=== PATIENT | female | born 1955 | race African-American/Black ===

== ENCOUNTER 2019-12-27 15:59 | Emergency (ER) | payer MEDICARE, MEDICAID, SELFPAY ==
[2019-12-27 16:08] VITALS: BP 135/74; PULSE 64; RESP 18; TEMP 36.4; O2SAT 96
[2019-12-27] MEDS: KETOROLAC (*BKC) 60 MG/2 ML VIAL IM (16:45)
--- NOTE | 2019-12-27 16:45 | ED.UPPEXIN ---
HPI - Extremity Injury (Upper) General Chief Complaint: Extremity Injury, Upper Stated Complaint: L SHOULDER PAIN Time Seen by Provider: 12/27/19 16:18 Source: patient Mode of arrival: ambulatory Limitations: no limitations History of Present Illness HPI narrative: This is a 64-year-old female that presents the emergency department for left shoulder pain x2 weeks. Reports no known injury or trauma. Reports she was seen here for this a couple of days ago and lab work and imaging was done. Reports she was sent home with a muscle relaxer and anti-inflammatory. Reports little relief with this. Denies fever, chest pain, shortness of breath. Related Data Home Medications Medication Instructions Recorded Confirmed alendronate 70 mg PO WEEKLY 12/23/19 glipizide 2.5 mg PO DAILY 12/23/19 hydrochlorothiazide 25 mg PO DAILY 12/23/19 losartan 25 mg PO DAILY 12/23/19 metformin 850 mg PO BID 12/23/19 omeprazole 20 mg PO DAILY 12/23/19 oxybutynin chloride 5 mg PO DAILY 12/23/19 simvastatin 40 mg PO DAILY 12/23/19 Allergies Allergy/AdvReac Type Severity Reaction Status Date / Time cholecalciferol (vitamin D3) AdvReac Mild RASH Verified 12/23/19 18:53 ergocalciferol (vitamin D2) AdvReac Mild RASH Verified 12/23/19 18:53 Review of Systems Review of Systems: Narrative: CONSTITUTIONAL: Denies fever CARDIOVASCULAR: Denies chest pain RESPIRATORY: Denies dyspnea. MUSCULOSKELETAL: Reports back pain, joint pain, and myalgia. NEUROLOGIC: Denies numbness, or weakness. All systems reviewed & are unremarkable except as noted in HPI and below PMFSH Past Medical History Medical History (Updated 12/27/19 @ 16:46 by Nallely Gonzales PA-C) Anxiety Arthritis Asthma Bipolar disorder Bronchitis Colon polyps COPD (chronic obstructive pulmonary disease) Cyst of left breast DDD (degenerative disc disease) Depression Diabetes type 2, controlled Ear infection Endometriosis GERD (gastroesophageal reflux disease) HLD (hyperlipidemia) HTN (hypertension) L5 vertebral fracture Left rotator cuff tear Osteoporosis Sleep apnea Surgical History Surgical History (Updated 12/23/19 @ 18:51 by Ken Abbott) History of breast biopsy Hx of cardiac catheterization Hx of colonoscopy with polypectomy Hx of hysterectomy Hx of repair of rotator cuff lt shoulder Family History Family History (Updated 12/15/17 @ 08:44 by DOCTOR UNKNOWN) Sibling Family history of suicide Family history of emphysema Diabetes mellitus Family history of chronic obstructive pulmonary disease Family history of sleep apnea Father Family history of chronic obstructive pulmonary disease, Onset Age: 74 Family history of emphysema, Onset Age: 74 Mother Family history of chronic obstructive pulmonary disease, Onset Age: 64 Family history of emphysema, Onset Age: 64 Social History Social History Smoking status: Light tobacco smoker Second hand tobacco smoke exposure: No Smoking end date: 11/28/10 Alcohol intake: current Exam Narrative: Exam Narrative: GENERAL: Well-appearing, obese, and in no acute distress. HEAD: Normocephalic, atraumatic. EYES: EOMI. ENT: Nares clear, no rhinorrhea or epistaxis. Mucous membranes moist. Oropharynx without tonsillar hypertrophy exudate or other lesions. Bilateral TMs pearly andres non-bulging NECK: Supple. No adenopathy or masses. Tender palpation of left trapezius musculature CHEST: Clear to auscultation. No respiratory distress. No wheezes rales or rhonchi. Tender palpation of left anterior upper chest wall HEART: Regular rate and rhythm. No murmur heard. Normal peripheral pulses. EXTREMITIES: Normal range of motion. No edema. SKIN: Warm, dry, no rash. NEURO: No focal deficits. Alert and oriented x3. PSYCH: Normal mood and affect Course Vital Signs Vital signs: Vital Signs Temperature 97.6 F 12/27/19 16:08 Pulse Rate 6
[2019-12-27 16:58] VITALS: BP 129/71; PULSE 71; RESP 18; O2SAT 97
== END 2019-12-27 17:00 | disposition home or self-care (01) ==
PROVIDERS: Emergency Provider Emergency Medicine; PCP Emergency Medicine
DX: M25.512 Pain in left shoulder (principal); M19.90 Unspecified osteoarthritis, unspecified site; J44.9 Chronic obstructive pulmonary disease, unspecified; E11.9 Type 2 diabetes mellitus without complications; N80.9 Endometriosis, unspecified; K21.9 Gastro-esophageal reflux disease without esophagitis; E78.5 Hyperlipidemia, unspecified; I10 Essential (primary) hypertension; M81.0 Age-related osteoporosis without current pathological fracture; G47.30 Sleep apnea, unspecified; F17.200 Nicotine dependence, unspecified, uncomplicated; Z79.4 Long term (current) use of insulin
CPT/HCPCS: 96372; 99284; J1885; J3360

== ENCOUNTER 2020-01-14 08:24 | Outpatient (CLI) | payer MEDICARE, MEDICAID, SELFPAY ==
--- NOTE | ~2020-01-14 | CT_ITS ---
EXAMINATION: CT soft tissue neck chest w DATE: 01/14/2020 09:56 INDICATION: Shortness of breath. Left supraclavicular mass. TECHNIQUE: Computed tomography (CT) of the neck and chest was performed with 75 mL Omnipaque-350 intr avenous contrast. Automated exposure control and iterative reconstruction technique were employed. Th e dose-length product was 1083.16 mGy-cm. COMPARISON: Chest CT dated 12/22/2018 and 02/04/2012 FINDINGS: Neck: Thyroid gland is unremarkable. Submandibular and parotid glands are symmetric. There are scattered normal-sized lymph nodes in the neck, no lymphadenopathy. No masses identified. The vasculature is patent and normal in caliber. Airway is unremarkable. Orbits are unremarkable. Paranasal sinuses, mas toid air cells and middle ear cavities are clear. Mild to moderate cervical spondylosis with straight ening of the normal cervical lordosis. Chest: Again seen is peripheral and lower lung predominant irregular septal line thickening with mild ground glass opacity. No honeycombing. No pleural effusion or pneumothorax. Heart size is normal. Atheroscle rotic coronary artery calcification. Thoracic aorta is normal in caliber with no dissection. No patho logically enlarged thoracic lymphadenopathy. Diffuse hepatic steatosis. No significant change since C T abdomen dated 05/24/2007 in 3 left adrenal masses the largest measuring 2.2 consistent with adrenal adenomas. Severe lower thoracic spondylosis. IMPRESSION: 1. Mild chronic peripheral and lower lung predominant interstitial lung disease a pattern of nonspeci fic interstitial pneumonia (NSIP). 2. No left supraclavicular mass, abnormal fluid collections or pathologically enlarged lymphadenopath y. 3. Diffuse hepatic steatosis. Reviewed, dictated and finalized at location A. TICS PLATER IMPRESSION: 1. Mild chronic peripheral and lower lung predominant interstitial lung disease a pattern of nonspecific interstitial pneumonia (NSIP). 2. No left supraclavicular mass, abnormal fluid collections or pathologically e nlarged lymphadenopathy. 3. Diffuse hepatic steatosis.
[2020-01-14 09:33] LABS: Blood Urea Nitrogen 16 mg/dL (8-26); Estimated Glomerular Filt Rate > 60
== END 2020-01-14 08:25 | disposition home or self-care (01) ==
LOC: ANHIMG 08:28
PROVIDERS: PCP Emergency Medicine; Visit Provider Emergency Medicine
DX: R06.02 Shortness of breath (principal); J84.9 Interstitial pulmonary disease, unspecified; K76.0 Fatty (change of) liver, not elsewhere classified
CPT/HCPCS: 70491; 71260; Q9967

== ENCOUNTER 2020-01-24 14:35 | Outpatient (CLI) | payer MEDICARE, MEDICAID, SELFPAY ==
--- NOTE | ~2020-01-24 | DEXA_ITS ---
Bone Density Report Name: Imelda Velazquez Age: 64 Sex: Female Ethnicity: Black Date of : 1955 Indication: postmenopausal; height loss; prior fracture; asthma or emphysema; hysterectomy; Referring Provider: BOBBY HILL Study: Bone densitometry was performed. Exam Date: January 24, 2020 Accession number: [id number] Bone Density: Region BMD T-score Z-score Classification AP Spine (L1-L4) 0.916 -1.2 -0.2 Osteopenia Femoral Neck (Left) 0.663 -1.7 -0.7 Osteopenia Total Hip (Left) 0.969 0.2 0.6 Normal Total Hip Bilateral Avg 0.965 0.2 0.6 Normal Femoral Neck (Right) 0.700 -1.3 -0.5 Osteopenia Total Hip (Right) 0.960 0.1 0.5 Normal World Health Organization criteria for BMD impression classify patients as: Normal (T-score at or above -1.0), Osteopenia (T-score between -1.0 and -2.5), or Osteoporosis (T-score at or below -2.5). 10-year Fracture Risk: FRAX not reported because: Prior hip or vertebral fracture Previous Exams: Region Exam Age BMD T-score BMD Change BMD Change Date g/cm2 vs Baseline vs Previous AP Spine(L1-L4) 01/24/2020 64 0.916 -1.2 0.156(20.5%)# -0.026(-2.8%)# 04/18/2015 59 0.942 -1.0 0.182(23.9%)# 0.182(23.9%)# 04/14/2006 50 0.760 -2.6 Total Hip(Left) 01/24/2020 64 0.969 0.2 0.134(16.1%)# -0.003(-0.3%) 04/18/2015 59 0.972 0.2 0.137(16.4%)# 0.137(16.4%)# 04/14/2006 50 0.835 -0.9 Total Hip(Right) 01/24/2020 64 0.960 0.1 0.172(21.8%)# -0.013(-1.3%) 04/18/2015 59 0.973 0.3 0.185(23.5%)# 0.185(23.5%)# 04/14/2006 50 0.788 -1.3 *Denotes significance at 95% confidence level, LSC for AP Spine = 0.022 g/cm2, LSC for Total Hip = 0.027 g/cm2 Clinical Information Provided by Patient: Have had a previous hip or vertebral fracture Has had a low trauma fracture Smokes Has the following medical conditions: Asthma or Emphysema, Hysterectomy Patient maximum height was 61 Menopause Age: 44 Does not regularly consume dairy products Drinks caffeinated beverages Onset of menses at age 14 Number of children 0 Impression: The patient has low bone mass, based on the Left Femoral Neck T-score. The patient has risk factors, including: smoking, previous fracture. No significant bone loss was observed. Discussion: INCREASED RISK OF FRACTURE DUE TO HISTORY OF FRACTURE. The patient's previous fracture puts the patient at high risk of a future fracture. In untreated patients, the risk of osteop
== END 2020-01-24 14:36 | disposition home or self-care (01) ==
PROVIDERS: PCP Emergency Medicine; Visit Provider Emergency Medicine
DX: M81.0 Age-related osteoporosis without current pathological fracture (principal); M85.89 Other specified disorders of bone density and structure, multiple sites
CPT/HCPCS: 77080

== ENCOUNTER 2020-06-14 00:37 | Outpatient (CLI) | payer MEDICARE, MEDICAID, SELFPAY ==
[2020-06-14 18:31] LABS: SARS-CoV-2 RNA PCR Negative
== END 2020-06-14 00:38 | disposition home or self-care (01) ==
LOC: ANHCOVIDDT 00:48
PROVIDERS: PCP Emergency Medicine; Visit Provider Internal Medicine Gastroenterology
DX: Z01.812 Encounter for preprocedural laboratory examination (principal); Z11.59 Encounter for screening for other viral diseases
CPT/HCPCS: 87635; C9803; U0003

== ENCOUNTER 2020-06-17 02:18 | Day surgery (SDC) | payer MEDICARE, MEDICAID, SELFPAY ==
[2020-06-06 11:15] VITALS: BMI 37.8
[2020-06-17 09:29] VITALS: BP 99/58; PULSE 65; RESP 20; TEMP 36.4; O2SAT 95
[2020-06-17] MEDS: LACTATED RINGERS 1,000 ML 150 ML IV CONT (09:47)
[2020-06-17 09:51] LABS: Glucose Point of Care 111 (65-105)
--- NOTE | 2020-06-17 10:23 | P.PNAN_ITS ---
Anes - Initial Pre Proc Eval Procedure: Operation Date: 06/17/20 11:00 Proposed Procedures p Esophagogastroduodenoscopy - Guicho Nixon MD Date/Time: 06/17/20 10:23 Surgeon: Guicho Nixon MD Pre Op Diagnosis: GERD Patient Data Age: 64 Gender: F Height: 4 ft 11 in Weight: 93.5 kg Last Vital Signs Temp 97.5 F L 06/17/20 09:29 Pulse 65 06/17/20 09:29 Resp 20 06/17/20 09:29 BP 99/58 L 06/17/20 09:29 Pulse Ox 95 06/17/20 09:29 Allergies Allergy/AdvReac Type Severity Reaction Status Date / Time No Known Allergies Allergy Verified 06/17/20 09:28 Home Medications Medication Instructions Recorded Confirmed Type glipizide 2.5 mg PO DAILY 12/23/19 06/17/20 History hydrochlorothiazide 25 mg PO DAILY 12/23/19 06/17/20 History metformin 850 mg PO BID 12/23/19 06/17/20 History omeprazole 20 mg PO DAILY 12/23/19 06/17/20 History oxybutynin chloride 5 mg PO DAILY 12/23/19 06/17/20 History simvastatin 40 mg PO DAILY 12/23/19 06/17/20 History cyclobenzaprine 10 mg PO TID PRN #20 tablet 12/27/19 06/17/20 Rx albuterol sulfate 90 mcg/actuation 2 inhalation INHALATION Q4-6H PRN 02/01/20 06/17/20 Rx aerosol inhaler #8.5 gm fluticasone 250 mcg-salmeterol 50 1 inhalation INHALATION BID 02/01/20 06/17/20 History mcg/dose blistr powdr for inhalation irbesartan 150 mg tablet 150 mg PO DAILY 02/01/20 06/17/20 History sodium chloride-aloe vera 1 applic TOPICAL Q1-2H PRN #14.1 gm 02/01/20 06/17/20 Rx umeclidinium 62.5 mcg/actuation 1 inhalation INHALATION DAILY 02/01/20 06/17/20 History blister powder for inhalation hydrocodone-acetaminophen 1 tablet PO PRN PRN 06/17/20 06/17/20 History Laboratory Tests 06/17/20 09:47 POC Capillary Glucose 111 mg/dl H mg/dl (65-105) Patient hx anesthesia problems: none Family hx anesthesia problems: none [facility] Social History Social History (Updated 02/01/20 @ 11:25 by Che Minor 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 TRAIN 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) Years smoked: 10 Smoking status: Light tobacco smoker Tobacco type: cigarettes Second hand tobacco smoke exposure: No Smoking end date: 11/28/10 Alcohol intake: current Anes - Eval Final PreProcedure Day of Procedure 06/17/20 10:23 Patient weight: morbidly obese Heart: regular rate and rhythm Lungs: clear to auscultation Airway: Mallampati scale class III Neurological: alert and oriented Last oral intake: >/= 8 hours ASA classification: IV Emergent: no Anesthetic plan: proceed Anesthesia type and monitoring: general GIVS and standard monitoring Informed Consent: The patient's anesthetic plan and its attendant risks and benefits were discussed with the patient/family/POA. Questions were solicited and answers provided to the satisfaction of the patient/family/POA.
--- NOTE | 2020-06-17 10:41 | PM.HPGS ---
History of Present Illness History of Present Illness Consent: Risks, benefits, and alternatives have been discussed and questions answered. Patient agrees to proceed with procedure. Chief complaint: GERD Narrative: Imelda Velazquez is a 64 year old female With refractory reflux symptoms. She had been on omeprazole for several years and doing well, but because of concerns related to long-term use she it was discontinued several months ago. Since then she has suffered from discomfort in her epigastric area, a sick feeling, nausea and occasional vomiting. She has lost some weight, about 20 lb in the last half year [facility] Past Medical History Medical History Anxiety Arthritis Asthma Bipolar disorder Bronchitis Colon polyps COPD (chronic obstructive pulmonary disease) Cyst of left breast DDD (degenerative disc disease) Depression Diabetes type 2, controlled Ear infection Endometriosis GERD (gastroesophageal reflux disease) HLD (hyperlipidemia) HTN (hypertension) L5 vertebral fracture Left rotator cuff tear Osteoporosis Sleep apnea Surgical History Surgical History History of breast biopsy Hx of cardiac catheterization Hx of colonoscopy with polypectomy Hx of hysterectomy Hx of repair of rotator cuff lt shoulder Family History Family History Sibling Family history of suicide Family history of emphysema Diabetes mellitus Family history of chronic obstructive pulmonary disease Family history of sleep apnea Father Family history of chronic obstructive pulmonary disease, Onset Age: 74 Family history of emphysema, Onset Age: 74 Mother Family history of chronic obstructive pulmonary disease, Onset Age: 64 Family history of emphysema, Onset Age: 64 Social History Social History (Updated 02/01/20 @ 11:25 by Che Minor [facility]) Years smoked: 10 Smoking status: Light tobacco smoker Tobacco type: cigarettes Second hand tobacco smoke exposure: No Smoking end date: 11/28/10 Alcohol intake: current Meds Home Medications and Allergies Home Medications Medication Instructions Recorded Confirmed Type glipizide 2.5 mg PO DAILY 12/23/19 06/17/20 History hydrochlorothiazide 25 mg PO DAILY 12/23/19 06/17/20 History metformin 850 mg PO BID 12/23/19 06/17/20 History omeprazole 20 mg PO DAILY 12/23/19 06/17/20 History oxybutynin chloride 5 mg PO DAILY 12/23/19 06/17/20 History simvastatin 40 mg PO DAILY 12/23/19 06/17/20 History cyclobenzaprine 10 mg PO TID PRN #20 tablet 12/27/19 06/17/20 Rx albuterol sulfate 90 mcg/actuation 2 inhalation INHALATION Q4-6H PRN 02/01/20 06/17/20 Rx aerosol inhaler #8.5 gm fluticasone 250 mcg-salmeterol 50 1 inhalation INHALATION BID 02/01/20 06/17/20 History mcg/dose blistr powdr for inhalation irbesartan 150 mg tablet 150 mg PO DAILY 02/01/20 06/17/20 History sodium chloride-aloe vera 1 applic TOPICAL Q1-2H PRN #14.1 gm 02/01/20 06/17/20 Rx umeclidinium 62.5 mcg/actuation 1 inhalation INHALATION DAILY 02/01/20 06/17/20 History blister powder for inhalation hydrocodone-acetaminophen 1 tablet PO PRN PRN 06/17/20 06/17/20 History Allergies Allergy/AdvReac Type Severity Reaction Status Date / Time No Known Allergies Allergy Verified 06/17/20 09:28 Vital Signs Vital Signs - 24 hr 06/17/20 09:29 Temperature 36.4 C L Pulse Rate 65 Respiratory Rate 20 Blood Pressure 99/58 L Pulse Oximetry 95 Exam Const: General: alert Orientation/consciousness: patient oriented x3 Resp: Auscultation: clear to auscultation bilaterally Cardio: Rhythm: regular rhythm GI: GI Palp: Yes Soft to palpation and No Tenderness to palpation present (GI) Neuro: General: patient oriented x3 Assessment and Plan Assessment and plan (1) GERD (gastroesophageal reflux disease):
[2020-06-17 11:10] VITALS: BP 108/71; PULSE 63; RESP 28; O2SAT 96
[2020-06-17 11:20] VITALS: BP 115/75; PULSE 59; RESP 22; O2SAT 96
[2020-06-17 11:30] VITALS: BP 99/65; PULSE 57; RESP 22; O2SAT 98
== END 2020-06-17 11:44 | disposition home or self-care (01) ==
PROVIDERS: PCP Emergency Medicine; Visit Provider Internal Medicine Gastroenterology
PROC: 0DJ08ZZ Inspection of Upper Intestinal Tract, Via Natural or Artificial Opening Endoscopic (ICD-10-PCS; CPT 43235; principal; 2020-06-17 11:00)
DX: K21.9 Gastro-esophageal reflux disease without esophagitis (principal); K29.70 Gastritis, unspecified, without bleeding; I10 Essential (primary) hypertension; E78.5 Hyperlipidemia, unspecified; J44.9 Chronic obstructive pulmonary disease, unspecified; F41.8 Other specified anxiety disorders; E11.9 Type 2 diabetes mellitus without complications; F31.9 Bipolar disorder, unspecified; M81.0 Age-related osteoporosis without current pathological fracture; G47.30 Sleep apnea, unspecified; F17.210 Nicotine dependence, cigarettes, uncomplicated; Z79.84 Long term (current) use of oral hypoglycemic drugs
CPT/HCPCS: 43239; 87081; J2001; J2704; J7120

== ENCOUNTER 2020-08-20 15:26 | Outpatient (CLI) | payer MEDICARE, MEDICAID, SELFPAY ==
--- NOTE | ~2020-08-20 | CT_ITS ---
EXAMINATION: CT abdomen pelvis w con INDICATION: Abdominal pain TECHNIQUE: Computed tomographic images of the abdomen and pelvis were obtained after the administrati on of 100 cc of Omnipaque 350 intravenous contrast. The dose-length product (DLP) was 1330.52 mGy-cm. Automated exposure control and iterative reconstruction technique were employed. COMPARISON: 05/24/2007, 01/14/2020 FINDINGS: Minimal dependent atelectasis is present in the lung bases. The heart size is normal. There are also subpleural reticular and groundglass opacities of the visualized lung bases without signifi cant change, consistent with chronic interstitial lung disease in a pattern of nonspecific interstiti al pneumonia (NSIP). Calcified coronary artery atherosclerosis is noted. There is a prominent soft ti ssue density at the pylorus of the stomach. The liver is diffusely low in attenuation when compared w ith the spleen, consistent with hepatic steatosis. The liver, spleen, pancreas, gallbladder, and righ t adrenal gland are normal. There are chronic masses of the left adrenal gland, unchanged since the comparison, likely adenomas. The kidneys are unremarkable. A lymph node of the small bowel mesent rodriguez measures 11 mm in short axis diameter (image [id number]). There is no free intraperitoneal gas or eviden ce of bowel obstruction. A fat-containing umbilical hernia is noted. There is moderate lumbar spondyl osis. IMPRESSION: 1. Prominent soft tissue density at the pylorus the stomach which could reflect prominent pylorus how ever, endoscopic evaluation is recommended. 2. Mildly prominent lymph node of the small bowel mesentery of unclear significance. Reviewed, dictated and finalized at location A. IMPRESSION: 1. Prominent soft tissue density at the pylorus the stomach which could reflect prominent pylorus however, endoscopic evaluation is recommended. 2. Mildly prominent lymph node of the small bowel mesentery of unclear signific ance.
--- NOTE | ~2020-08-20 | XR_ITS ---
EXAMINATION: XR lumbar spine 2-3V DATE: 08/20/2020 15:51 INDICATION: Back pain TECHNIQUE: Anteroposterior and lateral views of the lumbar spine, and cone-down lateral view of the l umbosacral junction were obtained. COMPARISON: CT from today FINDINGS: There are 2 mm of stable anterolisthesis of L5 on S1. Vertebral body alignment is otherwise maintained. There is chronic mild loss of intervertebral disc space height at L1-2 and L5-S1. No fra cture is identified. A Schmorl's node is again noted in the superior endplate of L3. There is no frac ture. There is severe facet osteoarthritis of the lower lumbar spine. IMPRESSION: 1. Mild lumbar spondylosis without acute findings or significant interval change. Reviewed, dictated and finalized at location A. IMPRESSION: 1. Mild lumbar spondylosis without acute findings or significant interval maral sosa
[2020-08-20 16:29] LABS: Estimated Glomerular Filt Rate > 60
== END 2020-08-20 15:27 | disposition home or self-care (01) ==
PROVIDERS: PCP Emergency Medicine; Visit Provider Emergency Medicine
DX: R10.9 Unspecified abdominal pain (principal); M47.896 Other spondylosis, lumbar region
CPT/HCPCS: 72100; 74177; Q9967

== ENCOUNTER 2021-04-13 12:20 | Outpatient (CLI) | payer MEDICARE, MEDICAID, SELFPAY ==
--- NOTE | ~2021-04-13 | CT_ITS ---
EXAMINATION: CT lung screening DATE: 04/13/2021 12:53 INDICATION: Personal history of nicotine dependence, current smoker with 30 pack year history TECHNIQUE: Computed tomography (CT) of the chest was performed without intravenous contrast. The dose -length product (DLP) was 211.84 mGy-cm. 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 COMPARISON: 01/14/2020 FINDINGS: There are chronic subpleural reticular and groundglass opacities with a lower lung zone pre dominance, consistent with chronic interstitial lung disease in a pattern of nonspecific interstitial pneumonia (NSIP). There is mild worsening comparison examination. No suspicious pulmonary nodules ar e identified. There is no pleural effusion or pneumothorax. No pathologically enlarged thoracic lymph nodes are identified. The heart size is normal. Calcified coronary artery atherosclerosis is noted. There is mild thoracic spondylosis. IMPRESSION: 1. Lung-RADS category 1: Negative. Continue annual screening with noncontrast low-dose chest CT in 12 months. Reviewed, dictated and finalized at location A. IMPRESSION: 1. Lung-RADS category 1: Negative. Continue annual screening with noncontrast l ow-dose chest CT in 12 months.
== END 2021-04-13 12:21 | disposition home or self-care (01) ==
PROVIDERS: PCP Emergency Medicine; Visit Provider Nurse Practitioner Family
DX: Z12.2 Encounter for screening for malignant neoplasm of respiratory organs (principal); Z87.891 Personal history of nicotine dependence
CPT/HCPCS: 71271

== ENCOUNTER 2021-07-06 13:40 | Outpatient (CLI) | payer MEDICARE, MEDICAID, SELFPAY ==
[2021-07-09 10:32] LABS: Anti Cyclic Citrullinated Pept <16 Units (<20)
== END 2021-07-06 13:41 | disposition home or self-care (01) ==
PROVIDERS: PCP Emergency Medicine; Visit Provider Nurse Practitioner Family
DX: J84.9 Interstitial pulmonary disease, unspecified (principal)
CPT/HCPCS: 36415; 86200; 86331; 86606; 86609

== ENCOUNTER 2021-07-31 10:12 | Outpatient (CLI) | payer MEDICARE, MEDICAID, SELFPAY ==
--- NOTE | 2021-07-31 14:21 | WPDSIXMINUTE ---
Six Minute Walk Procedure Procedure Performed Pulmonary Stress Test (6 min walk) Six Minute Walk This is a 6 minute walk test. The test was performed and interpreted in accordance with the 2014 ERS/ATS task force guidelines. Findings: The patient's resting room air oxygen saturation measured by pulse oximetry was 93% and her heart rate was 62 bpm. Patient ambulated for 305 meters and oxygen saturation remained 90 to 92%. Heart rate at the end of the study was 88 bpm. The patient did not qualify for supplemental oxygen at rest or with ambulation. There are no prior studies for comparison.
--- NOTE | 2021-07-31 14:22 | WPDPFTINT ---
PFT Procedure Performed PFT Procedure Performed Spirometry with Pre/Post Bronchodilator Plethysmography (Lung Vol) Diffusing Cap (DLCO) Flow Vol Loop PFT Interpretation This is a pulmonary function test with pre and post-bronchodilator spirometry, plethysmography and diffusing capacity. The test was performed and results interpreted in accordance with the 2019 and 2005 ATS/ERS Task Force guidelines respectively using the Global Lung Function Initiative-2012 reference equations. Patient demonstrated good effort and cooperation. Reproducibility criteria were met. The quality of the pre bronchodilator spirometry maneuver was Grade A and post bronchodilator spirometry maneuver was Grade B. Findings: Spirometry: The contour the inspiratory and expiratory flow tracing are normal. The pre bronchodilator FVC is 1.95 L, 76% predicted. The pre bronchodilator FEV1 is 1.53, 76% predicted. The FEV1: FVC ratio 78%. The post bronchodilator FVC is 2.10 L, representing a 7% increase. The post bronchodilator FEV1 is 1.67 L, representing a 9% increase. Plethysmography: The total lung capacity is 3.87 L, 87% predicted. The functional residual capacity is 1.65 L, 66% predicted. The residual volume is 1.61 L, 85% predicted. Diffusing capacity: The absolute diffusion capacity is 11.6, 60% predicted. The diffusing capacity corrected for alveolar volume is 4.12, 91% predicted. Impression: The spirometry is normal without evidence of an obstructive abnormality. There is no significant improvement after inhaling a single dose of albuterol. The lung volumes are normal. The absolute diffusing capacity is moderately decreased and normalizes when corrected for alveolar volume. There are no prior studies for comparison
== END 2021-07-31 10:13 | disposition home or self-care (01) ==
PROVIDERS: PCP Emergency Medicine; Visit Provider Nurse Practitioner Family
DX: J84.9 Interstitial pulmonary disease, unspecified (principal); J44.9 Chronic obstructive pulmonary disease, unspecified; R06.00 Dyspnea, unspecified
CPT/HCPCS: 94060; 94618; 94726; 94729

== ENCOUNTER 2021-09-26 16:27 | Emergency (ER) | payer MEDICARE, MEDICAID, SELFPAY ==
[2021-09-26 16:30] VITALS: BP 150/83; PULSE 63; RESP 16; TEMP 36.1; O2SAT 97
[2021-09-26] MEDS: ACETAMINOPHEN 500 MG TABLET 1000 MG PO (17:40)
--- NOTE | 2021-09-26 18:24 | ED.BACK ---
HPI - Back Pain/Injury General Chief Complaint: Back Pain/Injury Stated Complaint: fractured vertebrae Time Seen by Provider: 09/26/21 16:40 Source: patient History of Present Illness HPI Narrative: Patient was referred from urgent care concern for spinal fracture. 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 Patient fell at back pain and went to urgent care for evaluation she denies striking her head she denies any loss of consciousness focal focal numbness or weakness. Her pain is primarily in her lower back is achy, constant, worse with moving around radiates across her entire back. She denies any bowel or bladder incontinence. She denies any nausea or vomiting. She denies headaches Related Data Home Medications Medication Instructions Recorded Confirmed hydrochlorothiazide 25 mg PO DAILY 12/23/19 07/06/21 metformin 850 mg PO BID 12/23/19 07/06/21 oxybutynin chloride 5 mg PO DAILY 12/23/19 07/06/21 simvastatin 40 mg PO DAILY 12/23/19 07/06/21 fluticasone 250 mcg-salmeterol 50 1 inhalation INHALATION BID 02/01/20 07/06/21 mcg/dose blistr powdr for inhalation irbesartan 150 mg tablet 150 mg PO DAILY 02/01/20 07/06/21 hydrocodone 7.5 mg-acetaminophen 1 tablet PO Q8H PRN 10/03/20 07/06/21 325 mg tablet omeprazole 20 mg capsule,delayed 40 mg PO DAILY cap 10/03/20 07/06/21 release Allergies Allergy/AdvReac Type Severity Reaction Status Date / Time No Known Allergies Allergy Verified 07/06/21 13:11 Review of Systems Review of Systems: CONSTITUTIONAL: Denies fever, chills, or sweats. EYES: Denies visual changes, redness, or discharge. ENT: Denies rhinorrhea, congestion, sore throat, or otalgia. CARDIOVASCULAR: Denies chest pain, palpitations, or edema. RESPIRATORY: Denies cough or dyspnea. GASTROINTESTINAL: Denies abdominal pain, nausea, vomiting, or diarrhea. GENITOURINARY: Denies dysuria or hematuria. SKIN: Denies rash or itching. MUSCULOSKELETAL: Denies joint pain, or myalgia. NEUROLOGIC: Denies headache, numbness, dizziness, or weakness. PSYCHIATRIC: Denies anxiety or depression. All systems reviewed & are unremarkable except as noted in HPI and below PMFSH Past Medical History Medical History Anxiety Arthritis Asthma Bipolar disorder Bronchitis Colon polyps COPD (chronic obstructive pulmonary disease) Cyst of left breast DDD (degenerative disc disease) Depression Diabetes type 2, controlled Ear infection Endometriosis GERD (gastroesophageal reflux disease) HLD (hyperlipidemia) HTN (hypertension) L5 vertebral fracture Left rotator cuff tear Osteoporosis Sleep apnea Tobacco abuse Surgical History Surgical History History of breast biopsy Hx of cardiac catheterization Hx of colonoscopy with polypectomy Hx of hysterectomy Hx of repair of rotator cuff lt shoulder Family History Family History Sibling Family history of suicide Family history of emphysema Diabetes mellitus Family history of chronic obstructive pulmonary disease Family history of sleep apnea Father Family history of chronic obstructive pulmonary disease, Onset Age: 74 Family history of emphysema, Onset Age: 74 Mother Family history of chronic obstructive pulmonary disease, Onset Age: 64 Family history of emphysema, Onset Age: 64 Social History Social History Smoking packs per day: 1 Smoking cigarettes per day: 20.0 Years smoked: 30 Smoking pack-years: 30.00 Smoking status: Current every day smoker Tobacco type: cigarettes Second hand tobacco smoke exposure: No Smoking end date: 11/28/18 Alcohol intake: current Exam Narrative: GENERAL: Well-appearing, well-nourished, and in no acute distress. HE
[2021-09-26] MEDS: KETOROLAC 30 MG/ML VIAL (*BKC) IM (18:52)
[2021-09-26 19:05] VITALS: BP 124/92; PULSE 55; RESP 17; O2SAT 93
== END 2021-09-26 19:10 | disposition home or self-care (01) ==
PROVIDERS: Emergency Provider Emergency Medicine; PCP Emergency Medicine
DX: S39.92XA Unspecified injury of lower back, initial encounter (principal); E11.9 Type 2 diabetes mellitus without complications; M19.90 Unspecified osteoarthritis, unspecified site; J44.9 Chronic obstructive pulmonary disease, unspecified; N80.9 Endometriosis, unspecified; E78.5 Hyperlipidemia, unspecified; I10 Essential (primary) hypertension; M81.0 Age-related osteoporosis without current pathological fracture; G47.30 Sleep apnea, unspecified; F17.210 Nicotine dependence, cigarettes, uncomplicated; Z79.84 Long term (current) use of oral hypoglycemic drugs; W18.09XA Striking against other object with subsequent fall, initial encounter
CPT/HCPCS: 96372; 99199; 99283; A9270; J1885

== ENCOUNTER → 2022-02-04 08:35 | Outpatient (CLI) | payer MEDICARE, MEDICAID, SELFPAY ==
[2022-02-04 11:04] LABS: SARS-CoV-2 RNA PCR Negative
== END ==
PROVIDERS: PCP Emergency Medicine; Visit Provider Emergency Medicine
DX: B34.9 Viral infection, unspecified (principal); Z20.822 Contact with and (suspected) exposure to COVID-19
CPT/HCPCS: C9803; U0003; U0005

== ENCOUNTER 2022-02-12 08:19 | Outpatient (CLI) | payer MEDICARE, MEDICAID, SELFPAY ==
--- NOTE | 2022-02-23 13:08 | WPDSLEEPSTUD ---
Sleep Study Date of Study: 02/12/22 Ordering Provider: Jersey Harrell APRN Interpreting Physician: Niki Mccarthy DO Sleep Study Type: BiPAP Titration Height: 1.52 m Weight: 89.358 kg Body Mass Index: 38.5 Neck Circumference (inches): 14.5 [place]: 12 Reason for Sleep Study The patient has known MARLA. She is currently on CPAP 20 cm H2O w/2L O2 bleed in . No download available for review. She states she is compliant, uses CPAP nightly. She states pressure is too high. Sleep History The patient is a 66-year-old female with COPD, hypertension, diabetes, bipolar disorder, depression, GERD, hyperlipidemia, osteoporosis, anxiety, endometriosis, tobacco abuse and known MARLA that had a Pap titration ordered by the Pulmonary office. The patient is currently on CPAP 20 cm H2O with 2 L of oxygen. The patient states that she is constantly tired and she feels like the pressure is too high. The patient occasionally awakens from sleep short of breath. She denies awakening at night with heartburn, belching or cough. She constantly snores loud enough that others complain. She constantly has trouble sleeping when she has a cold. She constantly wakes up gasping for air throughout the night. She constantly has breathing problems at night observed by herself or others. She rarely sweats excessively at night. She denies heart palpitations or irregular heartbeats during the night. She occasionally falls asleep during the day but never while driving. She denies sleep paralysis and cataplexy. She denies having trouble at school or work due to sleepiness. She occasionally has vivid dreamlike scenes upon awakening or falling asleep. She occasionally has nightmares. She occasionally remembers her dreams. She occasionally has thoughts racing through her mind. She occasionally feels sad, depressed and anxious. She denies having muscular tension. She constantly notices parts of her body jerk. She constantly kicks during the night. She constantly has crawling and aching feelings in her legs as well as leg pain during the night. She denies grinding her teeth during sleep awakening with morning jaw pain. She is occasionally bothered by pain during the day and occasionally awakened by pain during the night. She occasionally wakes up feeling stiff in the morning with sore achy muscles. She constantly wakes up with pain in the neck, spine and other joints. She does not have a set bedtime on the weekdays or weekends. She is unsure how long it takes her to fall asleep. She is unsure how many times she wakes up throughout the night but when she does wake up she will use the restroom. She is unsure when she wakes up in the morning. She will stay in bed for 1 hour after waking up in the morning. She is currently living alone. She will consume caffeinated beverages within 2 hours of bedtime. She does not engage in physical exercise before bedtime. She will read watch television before falling asleep. She will take naps in the afternoon or the evening. She currently consumes 2 caffeinated beverages per day. She currently smokes 3 cigarettes per day. She denies alcohol recreational drug use. [facility]LY [facility] Past Medical History Medical History Anxiety Arthritis Asthma Bipolar disorder Bronchitis Colon polyps COPD (chronic obstructive pulmonary disease) Cyst of left breast DDD (degenerative disc disease) Depression Diabetes type 2, controlled Ear infection Endometriosis GERD (gastroesophageal reflux disease) HLD (hyperlipidemia) HTN (hypertension) L5 vertebral fracture Left rotator cuff tear Osteoporosis Sleep apnea Tobacco abuse Surgical History Surgical History History of breast biopsy Hx of cardiac catheterization Hx of colonoscopy with polypectomy Hx of hysterectomy Hx of repair of rotator cuff lt shoulder Family History Family Hi
[2022-02-23 13:24] VITALS: BMI 38.5
== END 2022-02-13 06:39 | disposition home or self-care (01) ==
LOC: ANHCSM 08:20
PROVIDERS: PCP Emergency Medicine
DX: G47.33 Obstructive sleep apnea (adult) (pediatric) (principal)
CPT/HCPCS: 95811

== ENCOUNTER 2022-04-13 09:56 | Outpatient (CLI) | payer MEDICARE, MEDICAID, SELFPAY ==
--- NOTE | ~2022-04-13 | CT_ITS ---
EXAMINATION: CT lung screening DATE: 04/13/2022 10:12 INDICATION: Z87.891 - Personal history of nicotine dependence TECHNIQUE: Computed tomography (CT) of the chest was performed without intravenous contrast. Addition al 3D reconstructions utilizing coronal maximum intensity projection (MIP) were performed. Automated exposure control and iterative reconstruction technique were employed. The dose-length product was 17 1.95 mGy-cm. COMPARISON: None FINDINGS: No significant interval change in peripheral and lower lung predominant irregular septal line thicken ing and mild groundglass opacities in consistent with chronic interstitial lung disease. There appear s to be some honeycombing most prominent along the anterior left upper lobe. Unchanged 5 mm triangula r likely perifissural lymph node along the right minor fissure. No pneumonia, pulmonary edema or pleu ral effusion. Heart size is normal. Atherosclerotic coronary artery calcific location. Aortic valve c alcific location. No pericardial effusion. Thoracic aorta is normal in caliber. No pathologically enl arged thoracic lymphadenopathy. Moderate to severe lower thoracic predominant spondylosis. IMPRESSION: 1. Lung-RADS category 2: Benign appearance or behavior. Continue annual screening with noncontrast lo w-dose chest CT in 12 months. 2. No significant change in chronic peripheral and lower lung predominant interstitial lung disease w ith suggestion of some honeycombing which would favor usual interstitial pneumonia (UIP) over nonspec ific interstitial pneumonia (NSIP). Reviewed, dictated and finalized at location A. IMPRESSION: 1. Lung-RADS category 2: Benign appearance or behavior. Continue annual screeni ng with noncontrast low-dose chest CT in 12 months. 2. No significant change in chronic peripheral and lower lung predominant inter stitial lung disease with suggestion of some honeycombing which would favor usu al interstitial pneumonia (UIP) over nonspecific interstitial pneumonia (NSIP).
== END 2022-04-13 09:57 | disposition home or self-care (01) ==
PROVIDERS: PCP Emergency Medicine; Visit Provider Nurse Practitioner Family
DX: Z12.2 Encounter for screening for malignant neoplasm of respiratory organs (principal); Z87.891 Personal history of nicotine dependence
CPT/HCPCS: 71271

== ENCOUNTER 2022-05-05 10:19 | Outpatient (CLI) | payer MEDICARE, MEDICAID, SELFPAY ==
--- NOTE | ~2022-05-05 | CT_ITS ---
EXAMINATION:CT chest high resolution wo nj DATE: 05/05/2022 10:48 INDICATION: Interstitial lung disease. TECHNIQUE: Computed tomography (CT) of the chest was performed without intravenous contrast. Automate d exposure control and iterative reconstruction technique were employed. The dose-length product (DLP ) was 387.50 mGy-cm. COMPARISON: Chest CT 04/13/2022, 04/13/21 FINDINGS: There is widespread peripheral septal thickening associated with groundglass opacities in t he lungs. There is mild emphysema. There is peripheral honeycombing in the upper lobes. No pleural ef fusion. The heart size is normal. There are coronary artery calcifications. No pericardial effusion. The central pulmonary arteries are enlarged, consistent with pulmonary arterial hypertension. There i s a 2.0 cm mass in left adrenal gland measuring soft tissue attenuation without change from 08/20/2020 , likely an adenoma. IMPRESSION: 1. Diffuse lung disease, stable from 04/13/2021, consistent with a combination of mild emphysema and c hronic interstitial lung disease in a pattern of usual interstitial pneumonia (UIP). Reviewed, dictated and finalized at location A. IMPRESSION: 1. Diffuse lung disease, stable from 04/13/2021, consistent with a combination o f mild emphysema and chronic interstitial lung disease in a pattern of usual in terstitial pneumonia (UIP).
== END 2022-05-05 10:20 | disposition home or self-care (01) ==
PROVIDERS: PCP Emergency Medicine; Visit Provider Nurse Practitioner Family
DX: J84.9 Interstitial pulmonary disease, unspecified (principal); I25.10 Atherosclerotic heart disease of native coronary artery without angina pectoris
CPT/HCPCS: 71250

== ENCOUNTER 2022-10-29 11:44 | Emergency (ER) | payer MEDICARE, MEDICAID, SELFPAY ==
--- NOTE | ~2022-10-29 | CT_ITS ---
EXAMINATION: CTA brain carotid DATE: 10/29/2022 14:13 INDICATION: Dizziness. Ataxia. TECHNIQUE: Computed tomographic angiography (CTA) of the head was performed without and with 100 mL O mnipaque-350 intravenous contrast. CTA of the neck was performed with intravenous contrast. Automated exposure control and iterative reconstruction technique were employed. The dose-length product was 1 730.98 mGy-cm. Maximum intensity projection and volume rendered 3D-reconstructions were created by kellie bruno technologist on a separate workstation. COMPARISON: Head CT 12/22/2018 FINDINGS: HEAD CTA: There are scattered areas of low attenuation in the cerebral white matter. There is no intr acranial hemorrhage, acute infarction, or abnormal intracranial mass lesion. The ventricles are kelley l in size. There are likely changes of ocular lens replacement surgeries. There is an old blowout fra cture of medial wall of right orbit. There is mild mucosal thickening in the ethmoid sinuses. There i s a right otomastoid effusion. The vertebral arteries are codominant. There is no significant stenosi s of basilar artery or the posterior cerebral arteries. There is no significant stenosis of the intra cranial internal carotid arteries or anterior or middle cerebral arteries. Anterior communicating art rodriguez is normal. There is no aneurysm. Posterior communicating arteries are not identified. NECK CTA: There is mild emphysema. There are no pathologically enlarged lymph nodes. There is no sign ificant stenosis of the vertebral arteries. There is plaque in the proximal internal carotid arteries . There is 0% stenosis of the proximal right internal carotid artery relative to normal distal artery lumen diameter (NASCET criteria). There is 0% stenosis of the proximal left internal carotid artery relative to normal distal artery lumen diameter. There is moderate cervical spondylosis. IMPRESSION: 1. Worsened moderate nonspecific cerebral white matter disease, which likely represents chronic small vessel ischemic disease. 2. No aneurysm or significant intracranial arterial stenosis. 3. 0% stenosis of the proximal internal carotid arteries relative to normal distal artery lumen diame ters (NASCET criteria). Reviewed, dictated and finalized at location A. TESTER IMPRESSION: 1. Worsened moderate nonspecific cerebral white matter disease, which likely re presents chronic small vessel ischemic disease. 2. No aneurysm or significant intracranial arterial stenosis. 3. 0% stenosis of the proximal internal carotid arteries relative to normal dis nikole artery lumen diameters (NASCET criteria).
[2022-10-29 11:52] VITALS: BP 142/79; PULSE 62; RESP 18; TEMP 36.7; O2SAT 98
--- NOTE | 2022-10-29 12:36 | ED.EAR ---
HPI - Ear Problem General Chief complaint: Ear Stated complaint: right ear pain, dizziness Time Seen by Provider: 10/29/22 12:16 History of Present Illness HPI Narrative: Patient is a 67-year-old female here for evaluation of right ear pain, tinnitus, decreased hearing for the past 10 days. She has been to an urgent care facility and seen her primary care doctor and has completed 2 rounds of antibiotics without relief of her symptoms. States that over the past 2 days she has felt dizzy when she turns her head and nauseated but denies vomiting. Patient denies any fevers or chills. Related Data Home Medications Medication Instructions Recorded Confirmed hydrochlorothiazide 25 mg tablet 25 mg PO DAILY 12/23/19 10/25/22 metformin 850 mg tablet 850 mg PO BID 12/23/19 10/25/22 oxybutynin chloride 5 mg 5 mg PO DAILY 12/23/19 10/25/22 tablet,extended release 24 hr simvastatin 40 mg tablet 40 mg PO DAILY 12/23/19 10/25/22 irbesartan 150 mg tablet 150 mg PO DAILY 02/01/20 10/25/22 hydrocodone 7.5 mg-acetaminophen 1 tablet PO Q8H PRN 10/03/20 10/25/22 325 mg tablet (Stem) omeprazole 20 mg capsule,delayed 40 mg PO DAILY 10/03/20 10/25/22 release cholecalciferol (vitamin D3) 50 50 mcg PO DAILY 04/21/22 10/25/22 mcg (2,000 unit) capsule fluticasone 250 mcg-salmeterol 50 1 inh inhalation BID 10/25/22 10/25/22 mcg/dose blistr powdr for inhalation (Wixela Inhub) Allergies Allergy/AdvReac Type Severity Reaction Status Date / Time No Known Allergies Allergy Verified 10/29/22 11:45 [facility] Past Medical History Medical History Anxiety Arthritis Asthma Bipolar disorder Bronchitis Colon polyps COPD (chronic obstructive pulmonary disease) Cyst of left breast DDD (degenerative disc disease) Depression Diabetes type 2, controlled Ear infection Endometriosis GERD (gastroesophageal reflux disease) HLD (hyperlipidemia) HTN (hypertension) L5 vertebral fracture Left rotator cuff tear Osteoporosis Sleep apnea Tobacco abuse Surgical History Surgical History History of breast biopsy Hx of cardiac catheterization Hx of colonoscopy with polypectomy Hx of hysterectomy Hx of repair of rotator cuff lt shoulder Family History Family History Sibling Family history of suicide Family history of emphysema Diabetes mellitus Family history of chronic obstructive pulmonary disease Family history of sleep apnea Father Family history of chronic obstructive pulmonary disease, Onset Age: 74 Family history of emphysema, Onset Age: 74 Mother Family history of chronic obstructive pulmonary disease, Onset Age: 64 Family history of emphysema, Onset Age: 64 Social History Social History Social History: Stated she is only smoking 1-2 cigarettes per week. Smoking packs per day: 1 Smoking cigarettes per day: 20.0 Years smoked: 30 Smoking pack-years: 30.00 Smoking status: Current every day smoker Tobacco type: cigarettes Second hand tobacco smoke exposure: Yes Alcohol intake: current Alcohol use details: Socially Course Vital Signs Vital signs: Vital Signs Temperature 98.0 F 10/29/22 11:52 Pulse Rate 62 10/29/22 11:52 Respiratory Rate 18 10/29/22 11:52 Blood Pressure 142/79 H 10/29/22 11:52 Pulse Oximetry 98 10/29/22 11:52 Oxygen Delivery Room Air 10/29/22 11:52 Temperature 98.0 F 10/29/22 11:52 Pulse Rate 62 10/29/22 11:52 Respiratory Rate 18 10/29/22 11:52 Blood Pressure 142/79 H 10/29/22 11:52 Pulse Oximetry 98 10/29/22 11:52 Oxygen Delivery Room Air 10/29/22 11:52 Medical Decision Making MDM Narrative Medical decision making narrative: 67-year-old female here for evaluation of right ear pain, tinnitus,
[2022-10-29] MEDS: MECLIZINE HCL 25 MG TABLET PO (12:52)
[2022-10-29] MEDS: ACETAMINOPHEN 325 MG TABLET 650 MG PO (12:52)
--- NOTE | 2022-10-29 13:34 | ECG_ITS ---
Measurements Intervals [place] Rate: 59 P: 34 TN: 166 QRS: -8 QRSD: 84 T: 82 QT: 430 QTc: 428 Interpretive Statements SINUS BRADYCARDIA WITH SINUS ARRHYTHMIA VOLTAGE CRITERIA FOR LVH [MEETS CRITERIA IN ONE OF: R(aVL), S(V1), R(V5), R(V5/V6)+S(V1)] MODERATE T-WAVE ABNORMALITY, CONSIDER ANTEROLATERAL ISCHEMIA [-0.1+ mV T-WAVE IN V3- V6] COMPARED TO ECG 12/23/2019 18:12:05 SINUS BRADYCARDIA NOW PRESENT SINUS ARRHYTHMIA NOW PRESENT Electronically Signed On 10-29-2022 14:38:15 FORENSIC DOCUMENT EXAMINER by Juancho Anderson M.D.
[2022-10-29] MEDS: SODIUM CHLORIDE 0.9% IV 1,000 ML 999 ML IV CONT (13:45)
[2022-10-29 13:47] LABS: Basophils Absolute Auto 0.1 K/mm3 (0.0-0.1); Basophils Percent Auto 0.9 % (0.2-1.2); Eosinophils Absolute Auto 0.2 K/mm3 (0-0.3); Eosinophils Percent Auto 3.4 % (0-4.4); Hematocrit 37.7 % (37.0-47.0); Hemoglobin 13.4 g/dL (12.0-15.0); Immature Granulocyte Absolute 0.01 K/mm3 (0.00-0.031); Immature Granulocyte Percent A 0.2 % (0-0.5); Lymphocytes Absolute Auto 2.62 K/mm3 (0.9-3.2); Lymphocytes Percent Auto 45.2 % (18.3-44.2); Mean Corpuscular HGB Conc 35.5 g/dl (32-36); Mean Corpuscular Hemoglobin 29.6 pg (26-34); Mean Corpuscular Volume 83.2 fl (80-100); Mean Platelet Volume 11.6 fl (7.4-10.4); Monocytes Absolute Auto 0.7 K/mm3 (0.1-0.6); Monocytes Percent Auto 11.4 % (2.6-8.5); Neutrophils Absolute Auto 2.3 K/mm3 (1.3-6.7); Neutrophils Percent Auto 38.9 % (45.5-73.1); Platelet Count Result 207 k/mm3 (150-375); Red Blood Count 4.53 M/mm3 (4.2-5.4); White Blood Count 5.8 K/mm3 (4.5-10.0)
[2022-10-29 13:59] LABS: Alanine Aminotransferase 20 U/L (6-35); Albumin Level 4.4 g/dL (3.5-5.1); Alkaline Phosphatase 62 U/L (38-126); Anion Gap 9 mmol/L (8-16); Aspartate Amino Transferase 23 U/L (14-36); Bilirubin,Total 0.6 mg/dL (0.2-1.3); Blood Urea Nitrogen 8 mg/dL (7-17); Calcium 9.4 mg/dL (8.4-10.2); Carbon Dioxide 29 mmol/L (22-30); Chloride 99 mmol/L (98-107); Estimated CRCL calculation 92 ml/min; Estimated Glomerular Filt Rate > 60; Glucose 124 mg/dL (65-110); Potassium 3.8 mmol/L (3.4-5.0); Sodium 137 mmol/L (137-145)
[2022-10-29 14:10] LABS: Troponin I < 0.012 ng/mL (0.000-0.034)
== END 2022-10-29 15:25 | disposition home or self-care (01) ==
PROVIDERS: Emergency Provider Physician Assistant; PCP Emergency Medicine
DX: R42 Dizziness and giddiness (principal); Z79.84 Long term (current) use of oral hypoglycemic drugs; M19.90 Unspecified osteoarthritis, unspecified site; J44.9 Chronic obstructive pulmonary disease, unspecified; E11.9 Type 2 diabetes mellitus without complications; K21.9 Gastro-esophageal reflux disease without esophagitis; E78.5 Hyperlipidemia, unspecified; I10 Essential (primary) hypertension; M81.0 Age-related osteoporosis without current pathological fracture; G47.30 Sleep apnea, unspecified; Z90.710 Acquired absence of both cervix and uterus; F17.210 Nicotine dependence, cigarettes, uncomplicated; R00.1 Bradycardia, unspecified; R94.31 Abnormal electrocardiogram [ECG] [EKG]
CPT/HCPCS: 36415; 70496; 70498; 80053; 84484; 85025; 93005; 96360; 96361; 99284; A9270; J7030; Q9967

== ENCOUNTER 2022-11-16 10:27 | Outpatient (CLI) | payer MEDICARE, MEDICAID, SELFPAY | END 2022-11-16 10:28 | disposition home or self-care (01) | LOC: ANHAUDIO 10:28 | PROVIDERS: PCP Emergency Medicine; Visit Provider Otolaryngology | DX: H93.11 Tinnitus, right ear (principal); H90.3 Sensorineural hearing loss, bilateral | CPT/HCPCS: 92557; 92567 ==

== ENCOUNTER 2022-11-18 08:41 | Outpatient (RCR) | payer MEDICARE, MEDICAID, SELFPAY ==
--- NOTE | 2022-11-18 10:27 | PTOPEVAL1 ---
Assessment and note entered by Kerry Vickers, PT Evaluation Information Assessment Status Evaluation Diagnosis BPPV, vestibular rehab Onset Aug 2022 Subjective Information she went to ER due to dizziness and to Express care due to ear ache and pain--had ear infection with drops and meds-- done taking now; has some allergy and sinus problems; recent hearing test and decreased hearing R ear, to get hearing aid and she has ringing in R ear; has not had problems with dizziness in the past; --dizziness and woozie feeling when bend head down and when walking feel off balance and spinning sometimes. is not taking meclazine- makes her too sleepy --has had cataract surgery and distant vision is good, but have reading glasses; is used to wearing glasses, so sometimes wears the reading glasses to walk and it may throw off her balance-- -discussed using glasses only for reading. she has not had any falls; Reported Pain Level Pain Score 0: Self Report Assessment PT Clinical Summary Imelda has the diagnosis of BPPV, vestibular rehab. She has multiple risk factors for vestibular issues: multiple meds, recent ear infection, sinus/allergy issues, headaches with neck pain, visual changes, hearing issues. With the vestibular testing: [place] and Horizontal Roll tests for BPPV were negative, but she had s/s with positional change of supine to long sitting. She has decreased eye tracking and gaze stabilization with horizontal and vertical planes, with increase reports of woozie and eyes not moving right. Skilled PT services are indicated for vestibular therapy, to begin with eye tracking and gaze stabilization, with reassessment and progression of treatment as indicated. Education to pt for home exericses and vestibular system. Plan of Care Interventions Neuro Re-education,Patient/Caregiver Education, Therapeutic Activities,Therapeutic Exercise PT Services Indicated Yes Treatment Frequency and 1x/wk for 5 weeks Duration These treatments will address the objective and functional deficits as defined above. The patient will be advanced safely and appropriately in order for the patient to progress towards his/her prior level of function. Additional exercises will be introduced and as well as a comprehensive home exercise program upon dis
--- NOTE | 2022-12-08 10:56 | PCPTNOTE ---
Patient did not show up for scheduled appointment this date. Called patient and she thought her appointment was next week.
--- NOTE | 2022-12-22 11:33 | PCPTNOTE ---
PHYSICAL THERAPY DISCHARGE 12-22-22 Attending Provider: Damian Medellin MD Patient:Imelda Velazquez Date of :1955 Ms. Velazquez has not returned for any further treatments since the initial evaluation on 11/18/2022, therefore she will be discharged at this time. The goals were not assessed. Thank you for referring this patient to [facility].
== END 2022-12-22 12:48 | disposition home or self-care (01) ==
LOC: ANHPT 08:41
PROVIDERS: PCP Emergency Medicine; Visit Provider Otolaryngology
DX: H81.10 Benign paroxysmal vertigo, unspecified ear (principal)
CPT/HCPCS: 97161; 99199

== ENCOUNTER 2023-01-10 08:21 | Outpatient (CLI) | payer MEDICARE, MEDICAID, SELFPAY ==
--- NOTE | ~2023-01-10 | DEXA_ITS ---
Bone Density Report Name: BASIM AZAR Age: 67 Sex: Female Ethnicity: Black Date of : 1955 Indication: postmenopausal; screening for osteoporosis; height loss; prior fracture; hysterectomy; Referring Provider: BOBBY HILL Study: Bone densitometry was performed. Exam Date: January 10, 2023 Accession number: [id number] Bone Density: Region BMD T-score Z-score Classification AP Spine(L1-L4) 0.935 -1.0 0.2 Normal Femoral Neck (Left) 0.656 -1.7 -0.7 Osteopenia Total Hip (Left) 1.027 0.7 1.1 Normal Femoral Neck (Right) 0.708 -1.3 -0.3 Osteopenia Total Hip (Right) 0.946 0.0 0.5 Normal Total Hip Mean 0.987 0.4 0.8 Normal World Health Organization criteria for BMD impression classify patients as: Normal (T-score at or above -1.0), Osteopenia (T-score between -1.0 and -2.5), or Osteoporosis (T-score at or below -2.5). 10-year Fracture Risk: FRAX not reported because: Prior hip or vertebral fracture Clinical Information Provided by Patient: Have had a previous hip or vertebral fracture Has had a low trauma fracture Smokes Has used the following medications: Fosamax (i.e. alendronate), Vitamin D Has the following medical conditions: Hysterectomy Patient maximum height was 61 Menopause Age: 44 Does not regularly consume dairy products Drinks caffeinated beverages Onset of menses at age 14 Number of children 0 Impression: The patient has low bone mass, based on the Left Femoral Neck T-score. The patient has risk factors, including: smoking, previous fracture. Discussion: INCREASED RISK OF FRACTURE DUE TO HISTORY OF FRACTURE. The patient's previous fracture puts the patient at high risk of a future fracture. In untreated patients, the risk of osteoporotic fracture increases approximately two-fold for each 1.0 SD decrease in T-score. Low bone density is not the only risk factor for fracture; also consider factors such as patient's age, frailty or poor health, risk of falling, risk of injury, previous osteoporotic fracture, family history of osteoporosis, cigarette smoking, low body weight, etc. Not everyone with a low trauma fracture has osteoporosis; osteomalacia and other metabolic bone disorders should also be considered. Patients who have osteoporosis should be evaluated for specific diseases and conditions (secondary causes) that may cause or contribute to bone loss and fracture risk. National Osteoporosis Foundation (NOF) recommends pharmacologic intervention for patients with a prior hip or vertebral fracture regardless of BMD T-score. The patient should follow a healthful lifestyle (good nutrition with adequate calcium and vitamin D, and appropriate weight-bearing exercise). Follow-Up: Consider a repeat BMD and Vertebral Fracture Assessment (VFA) exam in 2 years or sooner if medically
== END 2023-01-10 08:22 | disposition home or self-care (01) ==
LOC: ANHIMG 08:24
PROVIDERS: PCP Emergency Medicine; Visit Provider Emergency Medicine
DX: M85.852 Other specified disorders of bone density and structure, left thigh (principal); M85.851 Other specified disorders of bone density and structure, right thigh
CPT/HCPCS: 77080

== ENCOUNTER 2023-05-19 11:34 | Emergency (ER) | payer MEDICARE, MEDICAID, SELFPAY ==
[2023-05-19] VITALS (16 sets, daily range): BP systolic 104–130; BP diastolic 70–77; PULSE 50–76; RESP 13–19; TEMP 36.4; O2SAT 91–99
--- NOTE | ~2023-05-19 | XR_ITS ---
XR chest 2V 05/19/2023 13:21 Indication: Chest pain and dizziness Procedure: 2 view chest Comparison: Comparison to multiple prior studies sequentially, with oldest reviewed study dated 08/07. Findings: Shallow inspiration with crowding of the pulmonary vessels. Mild interstitial edema. No sig nificant effusion or pneumothorax. No acute osseous abnormality. Impression: 1: Mild interstitial edema. Reviewed, dictated and finalized at location L. Impression: 1: Mild interstitial edema.
--- NOTE | 2023-05-19 11:41 | ECG_ITS ---
Measurements Intervals [place] Rate: 54 P: 4 CA: 158 QRS: -4 QRSD: 101 T: 83 QT: 449 QTc: 425 Interpretive Statements SINUS BRADYCARDIA LATERAL TWAVE INVERSION WHICH MAY REPRESENT ISCHEMIA LEFT VENTRICULAR HYPERTROPHY AND ST-T CHANGE [VOLTAGE CRITERIA PLUS ST/T ABNORMALITY] COMPARED TO ECG 10/29/2022 13:46:13 NO CHANGE Electronically Signed On 05-19-2023 13:39:00 CDT by Shahana Fontaine M.D.
[2023-05-19 11:52] LABS: Basophils Absolute Auto 0.1 K/mm3 (0.0-0.1); Basophils Percent Auto 0.9 % (0.2-1.2); Eosinophils Absolute Auto 0.2 K/mm3 (0-0.3); Eosinophils Percent Auto 3.2 % (0-4.4); Hematocrit 38.2 % (37.0-47.0); Hemoglobin 13.5 g/dL (12.0-15.0); Immature Granulocyte Absolute 0.02 K/mm3 (0.00-0.031); Immature Granulocyte Percent A 0.3 % (0-0.5); Lymphocytes Absolute Auto 2.24 K/mm3 (0.9-3.2); Lymphocytes Percent Auto 34.6 % (18.3-44.2); Mean Corpuscular HGB Conc 35.3 g/dl (32-36); Mean Corpuscular Volume 82.2 fl (80-100); Mean Platelet Volume 12.2 fl (7.4-10.4); Monocytes Absolute Auto 0.5 K/mm3 (0.1-0.6); Monocytes Percent Auto 8.2 % (2.6-8.5); Neutrophils Absolute Auto 3.4 K/mm3 (1.3-6.7); Neutrophils Percent Auto 52.8 % (45.5-73.1); Platelet Count Result 169 k/mm3 (150-375); Red Blood Count 4.65 M/mm3 (4.2-5.4); Red Cell Distribution Width 14.4 % (11.5-14.5); White Blood Count 6.5 K/mm3 (4.5-10.0)
[2023-05-19 12:02] LABS: Prothrombin Time 13.1 Seconds (11.1-14.7)
[2023-05-19 12:03] LABS: Partial Thromboplastin Time 34.6 SECONDS (22.3-36.8)
[2023-05-19 12:04] LABS: Alanine Aminotransferase 21 U/L (6-35); Albumin Level 4.5 g/dL (3.5-5.1); Alkaline Phosphatase 54 U/L (38-126); Anion Gap 8 mmol/L (8-16); Aspartate Amino Transferase 23 U/L (14-36); Bilirubin,Total 0.8 mg/dL (0.2-1.3); Blood Urea Nitrogen 15 mg/dL (7-17); Calcium 9.8 mg/dL (8.4-10.2); Carbon Dioxide 33 mmol/L (22-30); Chloride 100 mmol/L (98-107); Estimated Glomerular Filt Rate > 60; Glucose 160 mg/dL (65-110); Lipase 63 U/L (23-300); Potassium 3.6 mmol/L (3.4-5.0); Sodium 141 mmol/L (137-145)
[2023-05-19 12:15] LABS: Troponin I < 0.012 ng/mL (0.000-0.034)
--- NOTE | 2023-05-19 12:16 | ED.CHESTPAIN ---
HPI - Chest Pain General Chief Complaint: Chest Pain Stated Complaint: chest pain Time Seen by Provider: 05/19/23 12:16 Source: patient and family Mode of arrival: ambulatory Limitations: no limitations History of Present Illness HPI narrative: 67 years old -[place] female presents with constant persistent left chest sharp stabbing pain radiating to left shoulder, left upper extremity and left upper back started few days ago. Worse with certain movement and position, better laying down on the right side of her body. 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 She denies fever, chills, nausea, vomiting, shortness of breath, headache. Related Data Home Medications Medication Instructions Recorded Confirmed hydrochlorothiazide 25 mg tablet 25 mg PO DAILY 12/23/19 02/21/23 oxybutynin chloride 5 mg 5 mg PO DAILY 12/23/19 02/21/23 tablet,extended release 24 hr irbesartan 150 mg tablet 150 mg PO DAILY 02/01/20 02/21/23 hydrocodone 7.5 mg-acetaminophen 1 tablet PO Q8H PRN 10/03/20 02/21/23 325 mg tablet ([place]) omeprazole 20 mg capsule,delayed 40 mg PO DAILY 10/03/20 02/21/23 release cholecalciferol (vitamin D3) 50 50 mcg PO DAILY 04/21/22 02/21/23 mcg (2,000 unit) capsule fluticasone 250 mcg-salmeterol 50 1 inh inhalation BID 10/25/22 02/21/23 mcg/dose blistr powdr for inhalation (Wixela Inhub) rosuvastatin 10 mg tablet 10 mg PO 02/21/23 02/21/23 semaglutide 7 mg tablet ([place]) ea PO 02/21/23 02/21/23 Allergies Allergy/AdvReac Type Severity Reaction Status Date / Time No Known Allergies Allergy Verified 02/21/23 12:47 Review of Systems Review of Systems: All systems reviewed & are unremarkable except as noted in HPI and below PMFSH Past Medical History Medical History Anxiety Arthritis Asthma Bipolar disorder Bronchitis Colon polyps COPD (chronic obstructive pulmonary disease) Cyst of left breast DDD (degenerative disc disease) Depression Diabetes type 2, controlled Ear infection Endometriosis GERD (gastroesophageal reflux disease) HLD (hyperlipidemia) HTN (hypertension) L5 vertebral fracture Left rotator cuff tear Osteoporosis Sleep apnea Tobacco abuse Surgical History Surgical History History of breast biopsy Hx of cardiac catheterization Hx of colonoscopy with polypectomy Hx of hysterectomy Hx of repair of rotator cuff lt shoulder Family History Family History Sibling Family history of suicide Family history of emphysema Diabetes mellitus Family history of chronic obstructive pulmonary disease Family history of sleep apnea Father Family history of chronic obstructive pulmonary disease, Onset Age: 74 Family history of emphysema, Onset Age: 74 Mother Family history of chronic obstructive pulmonary disease, Onset Age: 64 Family history of emphysema, Onset Age: 64 Social History Social History Social History: Stated she is only smoking 1-2 cigarettes per week. Smoking packs per day: 1 Smoking cigarettes per day: 20.0 Years smoked: 30 Smoking pack-years: 30.00 Smoking status: Current every day smoker Tobacco type: cigarettes Second hand tobacco smoke exposure: Yes Alcohol intake: current Alcohol use details: Socially Exam Narrative: General appearance: Well-developed, well-nourished Skin: Normal color Head: Normocephalic, nontraumatic Eyes: Clear conjunctiva ENT: Oropharynx normal, ears normal, nose normal Neck: Supple, nontender Chest and respiratory: Airway patent, no respiratory distress, no accessory muscle use. Diffuse severe tenderness left upper chest left upper back and left shoulder with light palpation. No bruises,
[2023-05-19] MEDS: CYCLOBENZAPRINE HCL 5 MG TABLET PO (13:22)
[2023-05-19] MEDS: KETOROLAC 15 MG/ML VIAL (*BKC) IV PUSH (13:23)
[2023-05-19] MEDS: HYDROcodone/acetaminophen (*CRX) 5-325 MG TABLET 1 TAB PO (13:23)
== END 2023-05-19 14:27 | disposition home or self-care (01) ==
PROVIDERS: Emergency Medicine; Emergency Provider Emergency Medicine; PCP Emergency Medicine
DX: R07.89 Other chest pain (principal); J44.9 Chronic obstructive pulmonary disease, unspecified; E11.9 Type 2 diabetes mellitus without complications; I10 Essential (primary) hypertension; K21.9 Gastro-esophageal reflux disease without esophagitis; G47.30 Sleep apnea, unspecified; M19.90 Unspecified osteoarthritis, unspecified site; M81.0 Age-related osteoporosis without current pathological fracture; F17.210 Nicotine dependence, cigarettes, uncomplicated; Z86.010 Personal history of colon polyps; Z90.710 Acquired absence of both cervix and uterus; Z79.84 Long term (current) use of oral hypoglycemic drugs; J81.1 Chronic pulmonary edema; R00.1 Bradycardia, unspecified; R94.31 Abnormal electrocardiogram [ECG] [EKG]; I51.7 Cardiomegaly
CPT/HCPCS: 36415; 71046; 80053; 83690; 84484; 85025; 85610; 85730; 93005; 96374; 99284; A9270; J1885

== ENCOUNTER 2023-06-01 12:58 | Outpatient (CLI) | payer MEDICARE, MEDICAID, SELFPAY ==
--- NOTE | ~2023-06-01 | CT_ITS ---
CT Scan of the Chest without Contrast: Clinical Indication: Interstitial lung disease, tobacco abuse Technique: Contiguous sections were acquired throughout the chest without intravenous contrast. Dose reduction technique was used on this scan by utilizing automated exposure control and iterative recon struction technique. The dose-length product (DLP) was 480.30 mGy-cm. COMPARISON: 05/05/2022 Findings: There is no evidence of any significant mediastinal, hilar or axillary lymphadenopathy. Coronary hiwot ry calcifications are present. There is no evidence of pleural or pericardial effusion. There is extensive subpleural reticulation and minimal peripheral interstitial thickening, worst in t he left upper lobe, similar appearance to prior exam. Probable focal honeycomb formation peripherally in the left upper lobe. Images through the upper abdomen reveal stable left adrenal nodule. Impression: Peripheral chronic interstitial disease, essentially stable from prior exam, worst in the left upper lobe. Reviewed, dictated and finalized at [facility]. Impression: Peripheral chronic interstitial disease, essentially stable from prior exam, wo rst in the left upper lobe.
[2023-06-01 14:15] VITALS: PULSE 85; O2SAT 94
[2023-06-01 14:17] VITALS: PULSE 77; O2SAT 86
[2023-06-01 14:21] VITALS: PULSE 71; O2SAT 89
[2023-06-01 14:23] VITALS: PULSE 69; O2SAT 94
--- NOTE | 2023-06-01 14:37 | HOMEO2EVAL ---
Evaluation was performed at [facility] Home Oxygen Evaluation RC: Home Oxygen (O2) Evaluation Start: 06/01/23 14:31 Freq: Status: Active Protocol: RPE Activity Type Activity Date Activity User E-sign Co-sign Detail Recorded Client Recorded Date Recorded By Document 06/01/23 14:15 KRM [email or web address] 06/01/23 14:37 KRM Document 06/01/23 14:17 [email or web address] [email or web address] 06/01/23 14:37 KRM Document 06/01/23 14:21 [email or web address] [email or web address] 06/01/23 14:37 KRM Document 06/01/23 14:23 [email or web address] [email or web address] 06/01/23 14:37 KRM 06/01/23 06/01/23 06/01/23 14:15 14:17 14:21 Home O2 Evaluation [Oxygen] -Test Phase Resting Exercise Exercise -Oxygen Delivery Room Air Room Air Nasal Cannula -Oxygen Flow Rate (L/min) 1 [Pulse Oximetry] -Pulse Oximetry (90-100 %) 94 86 L 89 L [Pulse Rate] -Pulse Rate (60-100 beats/min) 85 77 71 [Evaluation] -Activity Tolerance Good Good [Exercise] -Ambulation Distance (feet) -Ambulation Distance (meters) [Comments] -Home Oxygen Evaluation Comments [Charges] -Treatment Charges 06/01/23 14:23 Home O2 Evaluation [Oxygen] -Test Phase Exercise -Oxygen Delivery Nasal Cannula -Oxygen Flow Rate (L/min) 2 [Pulse Oximetry] -Pulse Oximetry (90-100 %) 94 [Pulse Rate] -Pulse Rate (60-100 beats/min) 69 [Evaluation] -Activity Tolerance Good [Exercise] -Ambulation Distance (feet) 500 -Ambulation Distance (meters) 152.39 [Comments] -Home Oxygen Evaluation Comments 2lpm o2 with activity. [Charges] -Treatment Charges O2 Evaluation - Outpatient
--- NOTE | 2023-06-02 07:22 | P.PCNPFT_ITS ---
PFT Procedure Performed PFT Procedure Performed Spirometry with Pre/Post Bronchodilator Plethysmography (Lung Vol) Diffusing Cap (DLCO) Flow Vol Loop PFT Interpretation This is a pulmonary function test with pre and post-bronchodilator spirometry, plethysmography and diffusing capacity. The test was performed and results interpreted in accordance with the 2019 and 2005 ATS/ERS Task Force guidelines respectively using the Global Lung Function Initiative-2012 reference equations. Patient demonstrated good effort and cooperation. Reproducibility criteria were met. The quality of the pre bronchodilator spirometry maneuver was Grade A and post bronchodilator spirometry maneuver was Grade A. Findings: Spirometry: The contour the inspiratory and expiratory flow tracing are normal. The pre bronchodilator FVC is 2.15 L, 100% predicted. The pre bronchodilator FEV1 is 1.67 L, 98% predicted. The pre bronchodilator FEV 1: FVC ratio 77%. The post bronchodilator FVC is 2.17 L, representing 1% increase. The post bronchodilator FEV1 is 1.72 L, representing a 3% increase. The post bronchodilator FEV1: FVC ratio 79%. Plethysmography: The total lung capacity is 3.49 L, 90% predicted. The functional residual capacity is 1.58 L, 68% predicted. The residual volume is 1.34 L, 74% predicted. Diffusion capacity: The diffusing capacity unadjusted for hemoglobin and carboxyhemoglobin is 11.9, 62% predicted. The diffusing capacity adjusted for alveolar volume is 4.22, 94% predicted. In comparison to previous pulmonary function testing on 07/31/2021 the post bronchodilator FVC is unchanged from 2.10 L to 2.17 L. The post bronchodilator FEV1 is unchanged from 1.67 L to 1.72 L. The total lung capacity is unchanged from 3.87 L to 3.49 L. The functional residual capacity is unchanged from 1.65 L to 1.58 L. The residual volume is decreased from 1.61 L to 1.34 L. The diffusing capacity unadjusted for hemoglobin and carboxyhemoglobin is unchanged from 11.6 to 11.9. The diffusing capacity adjusted for alveolar volume is unchanged from 4.12 to 4.22 Impression: The spirometry is normal without evidence of an obstructive abnormality. There is no significant improvement after inhaling a single dose of albuterol. The lung volumes are normal. The diffusing capacity unadjusted for h emoglobin and carboxyhemoglobin is mildly decreased and normalizes when adjusted for alveolar volume. In comparison to previous pulmonary function testing on 07/31/2021 there has been a greater than anticipated time dependent decrease in the residual volume with no significant change in the FVC, FEV1, total lung capacity, functional residual capacity or diffusing capacity. Clinical correlation is recommended.
== END 2023-06-01 12:59 | disposition home or self-care (01) ==
PROVIDERS: PCP Emergency Medicine; Visit Provider Nurse Practitioner Family
DX: J84.9 Interstitial pulmonary disease, unspecified (principal); Z72.0 Tobacco use; R06.09 Other forms of dyspnea; J44.9 Chronic obstructive pulmonary disease, unspecified
CPT/HCPCS: 71250; 94060; 94618; 94726; 94729

== ENCOUNTER 2023-06-28 09:02 | Outpatient (CLI) | payer MEDICARE, MEDICAID, SELFPAY ==
[2023-06-28 09:49] LABS: Cholesterol 151 mg/dL (0-200); HDL Direct 46 mg/dL; Triglycerides 302 mg/dL (<150)
[2023-06-28 10:01] LABS: LDL Cholesterol Direct 62 mg/dL
== END 2023-06-28 09:03 | disposition home or self-care (01) ==
PROVIDERS: PCP Emergency Medicine; Visit Provider Internal Medicine Cardiovascular Disease
DX: E78.5 Hyperlipidemia, unspecified (principal)
CPT/HCPCS: 36415; 80061

== ENCOUNTER 2023-12-21 06:38 | Outpatient (CLI) | payer MEDICARE, MEDICAID, SELFPAY ==
[2023-12-21 08:23] LABS: Cholesterol 164 mg/dL (0-200); HDL Direct 59 mg/dL
[2023-12-21 08:24] LABS: Alanine Aminotransferase 22 U/L (6-35); Albumin Level 4.5 g/dL (3.5-5.1); Alkaline Phosphatase 59 U/L (38-126); Anion Gap 8 mmol/L (8-16); Aspartate Amino Transferase 23 U/L (14-36); Bilirubin,Total 1.3 mg/dL (0.2-1.3); Blood Urea Nitrogen 14 mg/dL (7-17); Calcium 10.2 mg/dL (8.4-10.2); Carbon Dioxide 33 mmol/L (22-30); Chloride 100 mmol/L (98-107); Estimated Glomerular Filt Rate > 60; Glucose 147 mg/dL (65-110); Potassium 3.3 mmol/L (3.4-5.0); Sodium 141 mmol/L (137-145)
[2023-12-21 08:33] LABS: LDL Cholesterol Direct 87 mg/dL
[2023-12-21 08:40] LABS: Triglycerides 106 mg/dL (<150)
== END 2023-12-21 06:39 | disposition home or self-care (01) ==
PROVIDERS: PCP Emergency Medicine; Referring Provider Podiatrist Foot & Ankle Surgery; Visit Provider Internal Medicine Cardiovascular Disease
DX: E78.5 Hyperlipidemia, unspecified (principal); E11.42 Type 2 diabetes mellitus with diabetic polyneuropathy
CPT/HCPCS: 36415; 80053; 80061

== ENCOUNTER 2024-01-30 09:48 | Outpatient (CLI) | payer MEDICARE, MEDICAID, SELFPAY ==
--- NOTE | ~2024-01-30 | MR_ITS ---
EXAMINATION: MR abdomen wo/w con DATE: 01/30/2024 11:12 INDICATION: Left adrenal mass. TECHNIQUE: Magnetic resonance imaging (MRI) of the abdomen was performed without and with 20 mL Multi Ruth Ann intravenous contrast. COMPARISON: Chest CT 06/01/2023, 05/05/22 FINDINGS: There is diffuse hepatic steatosis. No pleural effusion. The liver, gallbladder, spleen, pancreas, ri ght adrenal gland, and left kidney are normal. There is a 2.5 cm mass in left adrenal gland containin g microscopic fat, consistent with an adenoma. There is a 5 mm cyst in right kidney. There are no dil ated loops of bowel. There is diverticulosis of the colon without evidence of diverticulitis. IMPRESSION: 1. 2.5 cm left adrenal adenoma, stable from 05/05/2022. 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
== END 2024-01-30 09:49 ==
PROVIDERS: PCP Nurse Practitioner Family; Visit Provider Emergency Medicine
DX: D35.02 Benign neoplasm of left adrenal gland (principal)
CPT/HCPCS: 74183; A9577

== ENCOUNTER 2024-07-18 08:13 | Emergency (ER) | payer MEDICARE, MEDICAID, SELFPAY ==
--- NOTE | ~2024-07-18 | CT_ITS ---
EXAMINATION: CT abdomen pelvis w con DATE: 07/18/2024 09:20 INDICATION: Lower abdominal pain. TECHNIQUE: Computed tomography (CT) of the abdomen and pelvis was performed with 100 mL Omnipaque 350 intravenous contrast. Automated exposure control and iterative reconstruction technique were employe d. The dose-length product was 1338.98 mGy-cm. COMPARISON: CT abdomen and pelvis 08/20/2020 FINDINGS: The visualized portions of lung bases demonstrate chronic peripheral septal thickening. No pleural effusion. The heart size is normal. There are coronary artery calcifications. No pericardial effusion. The liver, gallbladder, spleen, pancreas, and right adrenal gland are normal. There is an 1 8 mm mass in left adrenal gland measuring soft tissue attenuation, stable from 08/20/2020, likely an a denoma. The kidneys are normal. There is diverticulosis of the colon without evidence of diverticulit is. There are no dilated loops of bowel. The appendix is normal. There is calcified atherosclerosis o f the aorta and many of the other arteries. There are no pathologically enlarged lymph nodes. There i s no free intraperitoneal fluid. There is severe thoracic spondylosis and moderate lumbar stenosis. T here is a chronic compression fracture of L3. There is mild chronic anterior wedging of L1 and multip le lower thoracic vertebral bodies. IMPRESSION: 1. No specific etiology for the patient's symptoms. 2. Chronic interstitial lung disease with mild worsening. Reviewed, dictated and finalized at location A.
[2024-07-18 08:22] VITALS: BP 135/78; PULSE 86; RESP 20; TEMP 36.7; O2SAT 93
[2024-07-18 08:34] LABS: Basophils Absolute Auto 0.1 K/mm3 (0.0-0.1); Basophils Percent Auto 0.9 % (0.2-1.2); Eosinophils Absolute Auto 0.3 K/mm3 (0-0.3); Eosinophils Percent Auto 3.8 % (0-4.4); Hematocrit 45.8 % (37.0-47.0); Hemoglobin 16.1 g/dL (12.0-15.0); Immature Granulocyte Absolute 0.03 K/mm3 (0.00-0.031); Immature Granulocyte Percent A 0.4 % (0-0.5); Lymphocytes Absolute Auto 2.46 K/mm3 (0.9-3.2); Lymphocytes Percent Auto 33.2 % (18.3-44.2); Mean Corpuscular HGB Conc 35.2 g/dl (32-36); Mean Corpuscular Volume 82.5 fl (80-100); Mean Platelet Volume 11.9 fl (7.4-10.4); Monocytes Absolute Auto 0.8 K/mm3 (0.1-0.6); Monocytes Percent Auto 10.5 % (2.6-8.5); Neutrophils Absolute Auto 3.8 K/mm3 (1.3-6.7); Neutrophils Percent Auto 51.2 % (45.5-73.1); Platelet Count Result 216 k/mm3 (150-375); Red Blood Count 5.55 M/mm3 (4.2-5.4); Red Cell Distribution Width 16.1 % (11.5-14.5); White Blood Count 7.4 K/mm3 (4.5-10.0)
[2024-07-18 08:35] LABS: Add Urine Microscopic? NO; Appearance Urine Clear (Clear); Bilirubin Urine Negative (Negative); Blood Urine Negative (Negative); Color Urine Yellow (Yellow); Glucose Urine UA 3+ mg/dL (Negative); Ketones Urine Negative (Negative); Leukocyte Esterase Ur Negative LEU/UL (Negative); Nitrate Urine Negative (Negative); Protein Urine Negative (Negative); Specific Grav Ur 1.011 (1.001-1.035); Urobilinogen Urine 0.2 mg/dL (<2.0); pH Urine 5.5 (5.0-9.0)
--- NOTE | 2024-07-18 08:45 | ED.ABDPAIN ---
HPI - Abdominal Pain General Chief Complaint: Abdominal Pain Stated Complaint: abd pain Time Seen by Provider: 07/18/24 08:36 Source: patient Mode of arrival: ambulatory Limitations: no limitations History of Present Illness HPI narrative: Patient presents with complaint of low abdominal/pelvic pain over the past week that is 8/10 in severity. She denies any nausea, vomiting, or diarrhea. She has concern for urinary tract infection as her sister frequently got these when she was on her diabetic medications. Patient takes Jardiance glipizide. She denies any fevers. Her last bowel movement was yesterday and she denies any constipation or bloody stools. She did have 1 episode of diarrheal stool but she attributes this to eating raisins at night which is her late night snack given she has diabetes. She denies any debbie vaginal discharge but notes that she has been having some occasional genital itching. Her last colonoscopy was approximately 8 years ago and reportedly normal. She has a history of a hysterectomy for which she notes that she had had scar tissue. She continues to pass flatus. 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 She jokingly asks, DOc, do you think I might be ? , laughing. Related Data Home Medications Medication Instructions Recorded Confirmed oxybutynin chloride 5 mg 5 mg PO DAILY 12/23/19 06/20/24 tablet,extended release 24 hr hydrocodone 7.5 mg-acetaminophen 1 tablet PO Q8H PRN 10/03/20 06/20/24 325 mg tablet ([place]) omeprazole 20 mg capsule,delayed 40 mg PO DAILY 10/03/20 06/20/24 release cholecalciferol (vitamin D3) 50 50 mcg PO DAILY 04/21/22 06/20/24 mcg (2,000 unit) capsule rosuvastatin 10 mg tablet 10 mg PO 02/21/23 06/20/24 acyclovir 400 mg tablet mg PO ONCE 06/17/23 06/20/24 glimepiride 2 mg tablet 2 mg PO QAM 12/20/23 06/20/24 irbesartan 150 mg tablet 150 mg PO DAILY 12/20/23 06/20/24 omega 6-rbh-mro-fish oil 100 cap PO 12/20/23 06/20/24 mg-160 mg-1,000 mg capsule (Fish Oil) empagliflozin 25 mg tablet 25 mg PO DAILY 06/20/24 06/20/24 (Jardiance) Allergies Allergy/AdvReac Type Severity Reaction Status Date / Time No Known Allergies Allergy Verified 07/18/24 08:14 [facility] Past Medical History Medical History (Updated 07/18/24 @ 10:11 by Sonja Barksdale MD) Anxiety Arthritis Asthma Bipolar disorder Bronchitis Colon polyps COPD (chronic obstructive pulmonary disease) Cyst of left breast DDD (degenerative disc disease) Depression Diabetes type 2, controlled Ear infection Endometriosis GERD (gastroesophageal reflux disease) HLD (hyperlipidemia) HTN (hypertension) L5 vertebral fracture Left rotator cuff tear Osteoporosis Sleep apnea Tobacco abuse Surgical History Surgical History History of breast biopsy Hx of cardiac catheterization Hx of colonoscopy with polypectomy last approx 2015 Hx of hysterectomy Hx of repair of rotator cuff lt shoulder Family History Family History Sibling Family history of suicide Family history of emphysema Diabetes mellitus Family history of chronic obstructive pulmonary disease Family history of sleep apnea Father Family history of chronic obstructive pulmonary disease, Onset Age: 74 Family history of emphysema, Onset Age: 74 Mother Family history of chronic obstructive pulmonary disease, Onset Age: 64 Family history of emphysema, Onset Age: 64 Social History Social History (Updated 07/18/24 @ 09:00 by Sonja Barksdale MD) Smoking packs per day: 1 Smoking cigarettes per day: 20.0 Years smoked: 30 Smoking pack-years: 30.00 Smoking status: Former smoker Tobacco type: cigarettes Second hand tobacco smoke exposure: Yes Smoking end date: 10/14/23 Alcohol intake: current Alcohol use details: Socially Do You Fe
[2024-07-18 08:50] LABS: Alanine Aminotransferase 20 U/L (6-35); Albumin Level 4.8 g/dL (3.5-5.1); Alkaline Phosphatase 66 U/L (38-126); Anion Gap 10 mmol/L (4-12); Aspartate Amino Transferase 24 U/L (14-36); Bilirubin,Total 1.1 mg/dL (0.2-1.3); Blood Urea Nitrogen 14 mg/dL (7-17); Calcium 10.5 mg/dL (8.4-10.2); Carbon Dioxide 32 mmol/L (22-30); Chloride 99 mmol/L (98-107); Estimated CRCL calculation 80 ml/min; Estimated Glomerular Filt Rate > 60; Glucose 117 mg/dL (65-110); Lipase 78 U/L (23-300); Potassium 3.7 mmol/L (3.4-5.0); Sodium 141 mmol/L (137-145)
[2024-07-18] MEDS: SODIUM CHLORIDE 0.9% IV 1,000 ML 999 ML IV CONT (08:56)
[2024-07-18] MEDS: ALPRAZolam (*CRX) 0.5 MG TABLET PO (08:59)
[2024-07-18] MEDS: ACETAMINOPHEN 500 MG TABLET 1000 MG PO (10:30)
[2024-07-18] MEDS: FLUCONAZOLE 150 MG TABLET PO (10:30)
== END 2024-07-18 10:47 | disposition home or self-care (01) ==
PROVIDERS: Emergency Provider Student in an Organized Health Care Education/Training Program; PCP Emergency Medicine
DX: D58.2 Other hemoglobinopathies (principal); N76.0 Acute vaginitis; R10.30 Lower abdominal pain, unspecified; J84.9 Interstitial pulmonary disease, unspecified; E11.9 Type 2 diabetes mellitus without complications; E78.5 Hyperlipidemia, unspecified; I10 Essential (primary) hypertension; Z87.891 Personal history of nicotine dependence
CPT/HCPCS: 36415; 74177; 80053; 81003; 83690; 85025; 96360; 99284; A9270; J7030; Q9967

== ENCOUNTER 2024-07-27 08:35 | Outpatient (CLI) | payer MEDICARE, MEDICAID, SELFPAY ==
--- NOTE | ~2024-07-27 | NM_ITS ---
EXAMINATION: NM ken stress w perfusion DATE: 07/27/2024 11:15 INDICATION: Chest pain TECHNIQUE: Rest images were obtained following intravenous administration of 11 mCi Tc99m tetrofosmin (Myoview). The patient was infused intravenously with Lexiscan (Regadenoson). Then, 34 mCi Tc99m tet rofosmin (Myoview) was administered intravenously, and stress images were obtained. Data was reconstr ucted into short axis and horizontal and vertical long axis SPECT images. Gated SPECT images were als o obtained. COMPARISON: None. FINDINGS: There is mild breast attenuation artifact along the anterior wall which is clearly evident on the rotating source images. There is no definite reversible or fixed perfusion abnormality to sugg est ischemia or infarction. There is normal left ventricular chamber size, wall motion and ejection fraction. Left ventricular ejection fraction measures >70%. IMPRESSION: 1. Normal myocardial perfusion at rest and during stress. 2. Left ventricular ejection fraction measuring >70%. Reviewed, dictated and finalized at location A.
--- NOTE | 2024-07-27 08:45 | ECHO_ITS ---
Patient Info Name: Imelda Velazquez Age: 68 years : 1955 Gender: Female Ht: 60 in Wt: 200 lbs BSA: 2.01 m2 HR: 50 bpm BP: 124 / 68 mmHg Heart Rhythm: Sinus Rhythm Technical Quality: Good Exam Date: 07/27/2024 9:31 AM Exam Location: Echo Lab Patient Status: Outpatient Admit Date: 07/27/2024 Staff Ordering Physician: Lang Mahan DO Referral Agent: Toro Mazariegos RDCS Attending Provider: Lang Mahan DO Referring Physician: Negrito ELMORE; Exam Type: CA echo doppler color flow Study Info Indications - other forms of dyspnea Complete two-dimensional, color flow and Doppler transthoracic echocardiogram is performed. Summary 1. Complete two-dimensional, color flow and Doppler transthoracic echocardiogram is performed. 2. Left ventricular chamber dimension is normal. 3. Left ventricular systolic function is normal, estimated at 60-65%. 4. There is mild concentric increased left ventricular wall thickness. 5. The left ventricular diastolic function is grade I diastolic dysfunction. 6. E/e' 12 is mildly elevated. 7. There is mild aortic valve sclerosis. 8. No pulmonary hypertension, estimated pulmonary arterial systolic pressure is 14 mmHg. Left Ventricle E/e' 12 is mildly elevated. Left ventricular chamber dimension is normal. Left ventricular systolic function is normal, estimated at 60-65%. There is mild concentric increased left ventricular wall thickness. The left ventricular diastolic function is grade I diastolic dysfunction. Right Ventricle Right ventricular systolic function is normal and with normal TAPSE 1.8 cm. Right ventricular chamber dimension is normal. Left Atria Left atrial chamber dimension is normal. Right Atria Right atrial chamber dimension is normal. Aortic Valve The aortic valve is trileaflet. There is mild aortic valve sclerosis. There is no aortic valve stenosis. There is no aortic valve regurgitation. Pulmonic Valve There is no pulmonic regurgitation. Mitral Valve There is no mitral valve stenosis. There is no mitral valve regurgitation. Tricuspid Valve There is no tricuspid valve regurgitation. No pulmonary hypertension, estimated pulmonary arterial systolic pressure is 14 mmHg. Pericardium/Pleural There is no pericardial effusion. Inferior Vena Cava Normal inferior vena cava with >50% collapse upon inspiration consistent with normal right atrial pressure, 5 mmHg. Aorta The aortic root size at the sinus of Valsalva is normal. Left Ventricular Outflow Tract Name Value Normal LVOT 2D LVOT Diameter 1.9 cm LVOT Doppler LVOT Peak Gradient 6 mmHg LVOT Mean Gradient 3 mmHg LVOT VTI 28 cm LVOT VTI/AV VTI Ratio 0.8 LVOT Stroke Volume 77 ml LVOT CO 4.2 l/min LVOT CI 2.1 l/min/m2 Pulmonic Valve Name Value Normal PV Doppler
--- NOTE | 2024-07-27 08:45 | EST_ITS ---
Patient Info Name: Imelda Velazquez Age: 68 years : 1955 Gender: Female Ht: 60 in Wt: 200 lbs BSA: 2.01 m2 HR: 57 bpm BP: 109 / 75 mmHg Exam Date: 07/27/2024 10:03 AM Exam Location: Echo Lab Patient Status: Outpatient Admit Date: 07/27/2024 Staff Ordering Physician: Lang Mahan DO Attending Provider: Lang Mahan DO Exercise Technologist: Kalina Barajas RDCS Exercise Physician: Lang Mahan DO Exam Type: CA stress ken w NM Study Info A regadenoson stress test was performed. Summary 1. 1. Negative lexiscan stress test for ischemic ST changes by ECG criteria. 2. 2. Stable hemodynamics throughout the test. 3. 3. Nuclear scan to follow and will be reported separately. Please correlate with it. 4. 4. Patient informed of the above results. Protocol: Lexiscan Stress ECG Details Stage: REST Duration (min): 1 min : 16 sec HR (bpm): 57 SBP (mmHg): 109 DBP (mmHg): 75 Stage: REST Duration (min): 7 min : 8 sec HR (bpm): 58 SBP (mmHg): 109 DBP (mmHg): 75 Stage: STAGE 1 Duration (min): 1 min : 0 sec HR (bpm): 95 SBP (mmHg): 123 DBP (mmHg): 58 Stage: RECOVERY Duration (min): 1 min : 0 sec HR (bpm): 104 SBP (mmHg): 123 DBP (mmHg): 58 Stage: RECOVERY Duration (min): 2 min : 0 sec HR (bpm): 101 SBP (mmHg): 123 DBP (mmHg): 58 Stage: RECOVERY Duration (min): 3 min : 0 sec HR (bpm): 101 SBP (mmHg): 114 DBP (mmHg): 58 Stage: RECOVERY Duration (min): 3 min : 30 sec HR (bpm): 98 SBP (mmHg): 114 DBP (mmHg): 58 Rest HR: 58 bpm Peak HR: 109 bpm Rest Sys BP: 109 mmHg Peak Sys BP: 123 mmHg Max Pred HR: 151 bpm % Max Pred HR: 72 % Target HR: 128 bpm Max RPP: 13,407 bpm*mmHg Termination Reason: Completed protocol Cardiac Symptoms: Shortness of breath Total Time: 1 min : 0 sec Rest Junior BP: 75 mmHg Peak Junior BP: 58 mmHg Total Dose: 0.4 mg Resting ECG Sinus bradycardia. Stress ECG No ST changes. Arrhythmias None. Report Signatures
== END 2024-07-27 08:36 | disposition home or self-care (01) ==
LOC: ANHCARD 08:38
PROVIDERS: PCP Emergency Medicine; Visit Provider Internal Medicine Cardiovascular Disease
DX: R07.9 Chest pain, unspecified (principal); R06.09 Other forms of dyspnea; I35.8 Other nonrheumatic aortic valve disorders
CPT/HCPCS: 78452; 93017; 93306; A9502; J2785

== ENCOUNTER 2024-10-17 10:26 | Outpatient (CLI) | payer MEDICARE, MEDICAID, SELFPAY ==
--- NOTE | ~2024-10-17 | CT_ITS ---
EXAMINATION:CT chest high resolution wo pa DATE: 10/17/2024 11:00 INDICATION: Interstitial pulmonary disease, unspecified. TECHNIQUE: Computed tomography (CT) of the chest was performed without intravenous contrast. Automate d exposure control and iterative reconstruction technique were employed. The dose-length product (DLP ) was 562.45 mGy-cm. COMPARISON: Chest CT 06/01/2023 FINDINGS: There is mild emphysema. There is peripheral septal thickening in the lungs. No bronchiecta sis. There is peripheral honeycombing in the upper lobes. No pleural effusion. The heart size is norm al. There are coronary artery calcifications. No pericardial effusion. There are two masses in left a drenal gland with the larger measuring 2.0 cm, stable from 06/01/2023, likely an adenoma. There is cerv ical and severe thoracic spondylosis. IMPRESSION: 1. Stable diffuse lung disease, likely a combination of emphysema and chronic interstitial lung disea se in a pattern of usual interstitial pneumonia (UIP). 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 Stable diffuse lung disease, likely a combination of emphysema and chronic i nterstitial lung disease in a pattern of usual interstitial pneumonia (UIP).
== END 2024-10-17 10:27 | disposition home or self-care (01) ==
PROVIDERS: PCP Emergency Medicine; Visit Provider Nurse Practitioner Family
DX: J84.9 Interstitial pulmonary disease, unspecified (principal); Z72.0 Tobacco use; R91.8 Other nonspecific abnormal finding of lung field
CPT/HCPCS: 71250

== ENCOUNTER 2024-12-27 08:49 | Emergency (ER) | payer MEDICARE, MEDICAID, SELFPAY ==
[2024-12-27] VITALS (7 sets, daily range): BP systolic 138–149; BP diastolic 82–93; PULSE 54–65; RESP 17–20; TEMP 36.4; O2SAT 93–95
--- NOTE | ~2024-12-27 | XR_ITS ---
EXAMINATION: XR chest 1V portable 12/27/2024 09:28 INDICATION: Cough and congestion PROCEDURE: AP portable chest COMPARISON: Comparison to multiple prior studies sequentially, with oldest reviewed study dated 08/29. FINDINGS: Bilateral interstitial infiltrates may represent edema or pneumonia. The cardiomediastinal silhouette is within normal limits. There are no pleural effusions. There is no pneumothorax suspec caroline. IMPRESSION: 1: Bilateral interstitial infiltrates may represent edema or pneumonia. Reviewed, dictated and finalized at location A. TE BROADCAST TECHNICIAN
--- NOTE | ~2024-12-27 | CT_ITS ---
EXAMINATION: CT brain wo con DATE: 12/27/2024 10:07 INDICATION: Headache. TECHNIQUE: Computed tomography (CT) of the head was performed without intravenous contrast. The mA wa s adjusted according to patient size. Iterative reconstruction technique was employed. The dose-lengt h product was 605.33 mGy-cm. COMPARISON: Head CT 10/29/2022 FINDINGS: There are scattered areas of low attenuation in the cerebral white matter. There is no intr acranial hemorrhage, acute infarction, or abnormal intracranial mass lesion. The ventricles are kelley l in size. There is mucosal thickening in the paranasal sinuses. There are likely changes of ocular l ens replacement surgeries. The mastoid air cells are normal. IMPRESSION: 1. Stable moderate nonspecific cerebral white matter disease, which likely represents chronic small v essel ischemic disease. Reviewed, dictated and finalized at location A. P PRODUCT MANAGER IMPRESSION: 1. Stable moderate nonspecific cerebral white matter disease, which likely repr esents chronic small vessel ischemic disease.
--- NOTE | 2024-12-27 09:46 | ECG_ITS ---
Test Date: 2024-12-27 10:16:17 Measurements Intervals Mathias Rate: 52 P: 40 MI: 168 QRS: 22 QRSD: 85 T: 246 QT: 467 QTc: 437 Interpretive Statements SINUS BRADYCARDIA POSSIBLE RIGHT VENTRICULAR CONDUCTION DELAY [RSR (QR) IN V1/V2] SEPTAL MYOCARDIAL INFARCTION , PROBABLY OLD [40+ ms Q WAVE IN V1/V2] MODERATE T-WAVE ABNORMALITY, CONSIDER LATERAL ISCHEMIA [-0.1+ mV T WAVE IN I/aVL/V5/V6] MODERATE T-WAVE ABNORMALITY, CONSIDER INFERIOR ISCHEMIA [-0.1+ mV T WAVE IN II/aVF] No previous ECG available for comparison Electronically Signed On 12-27-2024 11:46:43 TOW MOTOR OPERATOR by Lamberto Hughes M.D.
--- NOTE | 2024-12-27 09:50 | ED_ITS ---
HPI - General Adult General Chief complaint: Unspecified Stated complaint: sharp pains in my eyes and top of my head Time Seen by Provider: 12/27/24 09:11 Source: patient Mode of arrival: ambulatory Limitations: no limitations History of Present Illness HPI narrative: This is a 69-year-old female that presents to the emergency department for cold symptoms. Present over the last 2 days. Reports headache, cough, congestion, shortness of breath. Also reports ear pain. Reports intermittent sharp chest pains. Does report she saw her conservation science officer 1 week ago for this complaint. She does have history of COPD and interstitial lung disease. Wears oxygen with exertion. Denies fevers. Related Data Home Medications ?Medication ?Instructions ?Recorded ?Confirmed ?Last Taken ?Type oxybutynin chloride 5 mg 5 mg PO DAILY 12/23/19 12/20/24 Unknown History tablet,extended release 24 hr hydrocodone 7.5 mg-acetaminophen 1 tablet PO Q8H PRN 10/03/20 12/20/24 Unknown History 325 mg tablet ([place]) omeprazole 20 mg capsule,delayed 40 mg PO DAILY 10/03/20 12/20/24 Unknown History release cholecalciferol (vitamin D3) 50 50 mcg PO DAILY 04/21/22 12/20/24 Unknown History mcg (2,000 unit) capsule rosuvastatin 10 mg tablet 10 mg PO 02/21/23 12/20/24 Unknown History acyclovir 400 mg tablet mg PO ONCE 06/17/23 12/20/24 Unknown History glimepiride 2 mg tablet 2 mg PO QAM 12/20/23 12/20/24 Unknown History irbesartan 150 mg tablet 150 mg PO DAILY 12/20/23 12/20/24 Unknown History omega 9-vqh-nlv-fish oil 100 cap PO 12/20/23 12/20/24 Unknown History mg-160 mg-1,000 mg capsule (Fish Oil) Allergies Allergy/AdvReac Type Severity Reaction Status Date / Time No Known Allergies Allergy Verified 12/20/24 10:13 Review of Systems 2 Review of Systems: CONSTITUTIONAL: Denies fever EYES: Denies visual changes ENT: Reports rhinorrhea, congestion, sore throat, and otalgia. CARDIOVASCULAR: Reports chest pain. Denies edema. RESPIRATORY: Reports cough and dyspnea. NEUROLOGIC: Reports headache. Denies numbness, or weakness. All systems reviewed & are unremarkable except as noted in HPI and below PMFSH Past Medical History Medical History Tobacco abuse Anxiety Depression Bipolar disorder Diabetes type 2, controlled L5 vertebral fracture Left rotator cuff tear DDD (degenerative disc disease) Osteoporosis Arthritis Cyst of left breast Endometriosis GERD (gastroesophageal reflux disease) Colon polyps Sleep apnea Bronchitis Asthma COPD (chronic obstructive pulmonary disease) HTN (hypertension) HLD (hyperlipidemia) Ear infection Surgical History Surgical History History of breast biopsy Hx of repair of rotator cuff lt shoulder Hx of hysterectomy Hx of colonoscopy with polypectomy last approx 2015 Hx of cardiac catheterization Family History Family History Sibling Family history of suicide Family history of emphysema Diabetes mellitus Family history of chronic obstructive pulmonary disease Family history of sleep apnea Father Family history of chronic obstructive pulmonary disease, Onset Age: 74 Family history of emphysema, Onset Age: 74 Mother Family history of chronic obstructive pulmonary disease, Onset Age: 64 Family history of emphysema, Onset Age: 64 Social History Social History Smoking packs per day: 1 Smoking cigarettes per day: 20.0 Years smoked: 30 Smoking pack-years: 30.00 Smoking status: Former smoker Tobacco type: cigarettes Second hand tobacco smoke exposure: Yes Smoking end date: 10/14/23 Alcohol intake: current Alcohol use details: Socially Do You Feel Safe in your Home?: Yes Lack of Transportation: No Lack of Food: Never True Current Housing: I Have Housing Concerned About Future Housing: No Difficulty Paying Gas/Electric Bills: No Difficulty Paying for Meds: No Currently Unemployed: No Education: High School Diploma/GED Difficulty w/ Childcare or Family Care: No Occupation/Education: occupation 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 HEAD: Normocephalic, atraumatic. EYES: PERRLA and EOMI. ENT: Nares clear, no rhinorrhea or epistaxis. Mucous membranes moist. Oropharynx without tonsillar hypertrophy exudate or other lesions. Left TM pearly andres non- bulging. Right cerumen impaction NECK: Supple. No adenopathy or masses. CHEST: No respiratory distress. Lung sounds diffusely diminished and coarse. No rhonchi HEART: Regular rate and rhythm. No murmur heard. Normal peripheral pulses. EXTREMITIES: Normal range of motion. No edema. SKIN: Warm, dry, no rash. NEURO: No focal deficits. Alert and oriented x3. CN II-XII grossly intact PSYCH: Normal mood and affect Course Course Emergency Course: Patient updated on her workup. We spoke about further management with inpatient admission versus close outpatient follow-up. Patient reports feeling much better. Ambulatory in the ED without shortness of breath. Would like to trial outpatient management Consultations Consultation #1: Spoke with hospitalist about patient and workup for possible admission Date: 12/28/24 Vital Signs Vital signs: Vital Signs Temperature 97.6 F 12/27/24 08:59 Pulse Rate 60 12/27/24 08:59 Respiratory Rate 20 12/27/24 08:59 Blood Pressure 143/85 H 12/27/24 08:59 Pulse Oximetry 95 12/27/24 08:59 Oxygen Delivery Room Air 12/27/24 08:59 Temperature 97.6 F 12/27/24 08:59 Pulse Rate 65 12/27/24 14:20 Respiratory Rate 17 12/27/24 14:20 Blood Pressure 138/93 H 12/27/24 14:20 Pulse Oximetry 94 12/27/24 14:20 Oxygen Delivery Room Air 12/27/24 08:59 Medical Decision Making [facility] Narrative Medical decision making narrative: Patient presents to the emergency department for cold symptoms present over the last 2 days. She is afebrile and nontoxic appearing. Her vitals are stable. Oxygen saturation is normal on room air. Patient with coarse lung sounds upon arrival, she did have some improvement after nebulizer treatment and steroid. Cbc without leukocytosis. Metabolic panel without concerning findings. EKG with T-wave inversions laterally, which appear largely unchanged from previous EKG. Her baseline troponin is negative. Influenza, RSV and COVID screens are negative. BNP is not elevated. Chest x-ray shows pneumonia versus edema. CT brain without acute findings. Spoke with hospitalist about patient and workup for possible admission. Patient updated on her workup. We spoke about further management with inpatient admission versus close outpatient follow-up. Patient reports feeling much better. Ambulatory in the ED without shortness of breath. Would like to trial outpatient management. She was instructed to return at any time for further evaluation/management Differential Diagnosis Differential Diagnosis: COPD exacerbation, pneumonia, interstitial lung disease Vital Signs Vital Signs: Vital Signs Temperature 97.6 F 12/27/24 08:59 Pulse Rate 60 12/27/24 08:59 Respiratory Rate 20 12/27/24 08:59 Blood Pressure 143/85 H 12/27/24 08:59 Pulse Oximetry 95 12/27/24 08:59 Oxygen Delivery Room Air 12/27/24 08:59 Temperature 97.6 F 12/27/24 08:59 Pulse Rate 65 12/27/24 14:20 Respiratory Rate 17 12/27/24 14:20 Blood Pressure 138/93 H 12/27/24 14:20 Pulse Oximetry 94 12/27/24 14:20 Oxygen Delivery Room Air 12/27/24 08:59 Lab Data Lab results reviewed: Yes I reviewed the patient's lab results. 12/27/24 09:57 12/27/24 09:57 Labs: Lab Results 12/27/24 12/27/24 12/27/24 Range/Units 09:13 09:57 13:13 WBC 5.6 (4.5-10.0) K/mm3 RBC 4.62 (4.2-5.4) M/mm3 Hgb 13.6 (12.0-15.0) g/dL Hct 38.1 (37.0-47.0) % MCV 82.5 (80-100) fl MCH 29.4 (26-34) pg MCHC 35.7 (32-36) g/dl RDW 15.9 H (11.5-14.5) % Plt Count 145 L (150-375) k/mm3 MPV 12.2 H (7.4-10.4) fl Immature Gran % (Auto) 0.4 (0-0.5) % Neut % (Auto) 55.0 (45.5-73.1) % Lymph % (Auto) 31.3 (18.3-44.2) % [place] % (Auto) 9.2 H (2.6-8.5) % Eos % (Auto) 3.2 (0-4.4) % Baso % (Auto) 0.9 (0.2-1.2) % Lymph # (Auto) 1.76 (0.9-3.2) K/mm3 [place] # (Auto) 0.5 (0.1-0.6) K/mm3 Eos # (Auto) 0.2 (0-0.3) K/mm3 Baso # (Auto) 0.1 (0.0-0.1) K/mm3 Abs Immat Gran (auto) 0.02 (0.00-0.031) K/mm3 Absolute Neuts (auto) 3.1 (1.3-6.7) K/mm3 Absolute Nucleated RBC 0.000 (0.0-0.012) K/mm3 Nucleated RBC % 0.0 (0.0-0.2) % PT 12.8 (11.1-14.7) Seconds INR 0.9 APTT 33.1 (22.3-36.8) Seconds Sodium 140 (137-145) mmol/L Potassium 3.7 (3.4-5.0) mmol/L Chloride 105 (98-107) mmol/L Carbon Dioxide 28 (22-30) mmol/L Anion Gap 7 (4-12) mmol/L BUN 20 H (7-17) mg/dL Creatinine 0.56 L (0.7-1.0) mg/dL Estim Creat Clear Calc 85 ml/min Estimated GFR > 60 (59 - ) Glucose 124 H (65-110) mg/dL Calcium 9.8 (8.4-10.2) mg/dL Total Bilirubin 0.8 (0.2-1.3) mg/dL AST 18 (14-36) U/L ALT 20 (6-35) U/L Alkaline Phosphatase 69 (38-126) U/L Troponin I < 0.012 (0.000-0.034) ng/mL NT-Pro-B Natriuret Pep 149 H (19.9-100) pg/mL Total Protein 7.0 (6.3-8.2) g/dL Albumin 4.2 (3.5-5.1) g/dL Influenza A (RT-PCR) Negative (Negative) Influenza B (RT-PCR) Negative (Negative) RSV (RT-PCR) Negative (Negative) SARS-CoV-2 RNA (RT-PCR) Negative (Negative) Imaging Data Radiologist's impression: ITS Impressions Chest X-Ray 12/27/24 09:31 IMPRESSION: 1: Bilateral interstitial infiltrates may represent edema or pneumonia. Head CT 12/27/24 10:10 IMPRESSION: 1. Stable moderate nonspecific cerebral white matter disease, which likely represents chronic small vessel ischemic disease. ECG Data EKG #1: ECG completion date: 12/27/24 EKG Interpretation: bradycardia, sinus rhythm, non-specific ST changes (T wave inversions laterally), normal QT and no acute changes (EKG appears similar to 04/2023) Critical Care Time Critical Care Time Critical Care Time: No Discharge Plan Discharge Clinical Impression: COPD exacerbation Pneumonia Qualifiers: Pneumonia type: due to unspecified organism Laterality: bilateral Lung location: unspecified part of lung Qualified Code(s): J18.9 - Pneumonia, unspecified organism Patient Disposition: Home, Self-Care Condition: Improved Instructions: Antibiotic Form, COPD (Chronic Obstructive Pulmonary Disease) (ED), Community Acquired Pneumonia (ED) Additional Instructions: Return to the emergency department for worsening symptoms, or any other concerns Remain well-hydrated, get plenty of rest. Take Tylenol or Motrin [id number] for pain as needed. Flonase for nasal congestion. Zyrtec for runny nose. Lozenges or Chloraseptic spray for sore throat. Take oral antibiotics (Amoxicillin and Azithromycin) as prescribed. 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 Patient Language: Austrian Prescriptions: New azithromycin 250 mg tablet 250 mg PO DAILY 4 Days Qty: 4 0RF Rx Instructions: start on day 2 of therapy prednisone 20 mg tablet 40 mg PO DAILY 4 Days Qty: 8 0RF amoxicillin 500 mg tablet 1,000 mg PO Q8H 4 Days Qty: 24 0RF No Action cholecalciferol (vitamin D3) 50 mcg (2,000 unit) capsule 50 mcg PO DAILY rosuvastatin 10 mg tablet 10 mg PO acyclovir 400 mg tablet PO ONCE hydrocodone-acetaminophen [[place]] 7.5-325 mg tablet 1 tablet PO Q8H PRN Fish Oil 100-160-1,000 mg capsule PO irbesartan 150 mg tablet 150 mg PO DAILY glimepiride 2 mg tablet 2 mg PO QAM Rx Instructions: administer with breakfast albuterol sulfate 90 mcg/actuation HFA aerosol inhaler 1 - 2 puff inhalation Q4-6H PRN (Reason: shortness of breath or wheezing) Qty: 8.5 3RF oxybutynin chloride 5 mg tablet extended release 24hr 5 mg PO DAILY omeprazole 20 mg capsule,delayed release(DR/EC) 40 mg PO DAILY meclizine 12.5 mg tablet 12.5 mg PO TID PRN (Reason: dizziness) Qty: 10 0RF acetaminophen 500 mg capsule 1,000 mg PO Q6H PRN (Reason: pain) Qty: 20 0RF fluconazole 150 mg tablet 150 mg PO ONCE PRN (Reason: vaginal irritation) Qty: 1 0RF Rx Instructions: as a single dose if still symptomatic at 72 hours (i.e. on 07/21/24) Follow-up/Referrals: Jersey Harrell, WEEKEND ANCHOR [Primary Care Provider] -
[2024-12-27 09:58] LABS: Influenza A QL RT-PCR Negative (Negative); Influenza B QL RT-PCR Negative (Negative); SARS-CoV-2 RNA PCR Negative (Negative)
[2024-12-27 10:05] LABS: Basophils Absolute Auto 0.1 K/mm3 (0.0-0.1); Basophils Percent Auto 0.9 % (0.2-1.2); Eosinophils Absolute Auto 0.2 K/mm3 (0-0.3); Eosinophils Percent Auto 3.2 % (0-4.4); Hematocrit 38.1 % (37.0-47.0); Hemoglobin 13.6 g/dL (12.0-15.0); Immature Granulocyte Absolute 0.02 K/mm3 (0.00-0.031); Immature Granulocyte Percent A 0.4 % (0-0.5); Lymphocytes Absolute Auto 1.76 K/mm3 (0.9-3.2); Lymphocytes Percent Auto 31.3 % (18.3-44.2); Mean Corpuscular HGB Conc 35.7 g/dl (32-36); Mean Corpuscular Hemoglobin 29.4 pg (26-34); Mean Corpuscular Volume 82.5 fl (80-100); Mean Platelet Volume 12.2 fl (7.4-10.4); Monocytes Absolute Auto 0.5 K/mm3 (0.1-0.6); Monocytes Percent Auto 9.2 % (2.6-8.5); Neutrophils Absolute Auto 3.1 K/mm3 (1.3-6.7); Platelet Count Result 145 k/mm3 (150-375); Red Blood Count 4.62 M/mm3 (4.2-5.4); Red Cell Distribution Width 15.9 % (11.5-14.5); White Blood Count 5.6 K/mm3 (4.5-10.0)
[2024-12-27 10:16] LABS: INR 0.9; Prothrombin Time 12.8 Seconds (11.1-14.7)
[2024-12-27 10:17] LABS: Partial Thromboplastin Time 33.1 Seconds (22.3-36.8)
[2024-12-27] MEDS: IPRATROPIUM 0.5 MG/ALBUTEROL SULFATE 2.5 MG AMPUL.NEB 3 ML INHALATION (10:18)
[2024-12-27 10:19] LABS: Alanine Aminotransferase 20 U/L (6-35); Albumin Level 4.2 g/dL (3.5-5.1); Alkaline Phosphatase 69 U/L (38-126); Anion Gap 7 mmol/L (4-12); Aspartate Amino Transferase 18 U/L (14-36); Bilirubin,Total 0.8 mg/dL (0.2-1.3); Blood Urea Nitrogen 20 mg/dL (7-17); Calcium 9.8 mg/dL (8.4-10.2); Carbon Dioxide 28 mmol/L (22-30); Chloride 105 mmol/L (98-107); Estimated CRCL calculation 85 ml/min; Estimated Glomerular Filt Rate > 60; Glucose 124 mg/dL (65-110); Potassium 3.7 mmol/L (3.4-5.0); Sodium 140 mmol/L (137-145)
[2024-12-27] MEDS: methylPREDNISolone SOD SUCC 125 MG VIAL IV PUSH (10:24)
[2024-12-27] MEDS: METOCLOPRAMIDE HCL INJ 10 MG/2 ML VIAL IV PUSH (10:24)
[2024-12-27] MEDS: ACETAMINOPHEN 325 MG TABLET 650 MG PO (10:24)
[2024-12-27] MEDS: diphenhydrAMINE HCl INJ 50 MG/ML VIAL 25 MG IV PUSH (10:24)
[2024-12-27 10:31] LABS: NT Pro B Type Natriuretic Pept 149 pg/mL (19.9-100); Troponin I < 0.012 ng/mL (0.000-0.034)
--- OUTSIDE RECORDS SUMMARY | 2024-12-27 11:09 | XMS_ITS | Clinical Summary ---
Author Organization [facility] Address [facility]. [place], [place] [id number] [place] [id number] Care Team Providers Care Unit Support Representative Name Role Phone Unavailable Primary Care Provider Unavailabl e Social History Tobacco Use Types Packs/Day Years Used Date Smoking Tobacco: Never Assessed Comments Unknown Sex and Gender Information Value Date Recorded Sex Assigned at Not on file Legal Sex Female 6:55 PM CDT Gender Identity Not on file Sexual Orientation Not on file Plan of Treatment Health Maintenance Due Date Last Done Comments Colorectal Cancer Screening Colonoscopy (10 Years) 1954 Hepatitis C 1972 DTaP, Tdap and Td Vaccines ( 1 - Tdap) 1973 Mammogram Screening 1994 Zoster Vaccines (1 of 2) 2004 Dexa Scan (General) 2019 Pneumococcal Vaccine: 65+ Ye ars (1 of 1 - PCV) 2019 COVID-19 Vaccine (2023-2 5 season) 2024 Influenza Adult (#1) 2024 RSV Immunization or 60+ Years (1 - 1-dose 75+ series) 2029 Meningococcal B Vaccine Aged Out No l onger eligible based on patient's age to complete this topic Meningococcal Vaccine Aged Out No dora anabell eligible based on patient's age to complete this topic RSV Immunizations Under 20 Months Aged Out No longer eligible based on patient's age to complete this topic
--- OUTSIDE RECORDS SUMMARY | 2024-12-27 11:09 | XMS_ITS | Referral Summary ---
Author Organization [facility] Address [address] [place] [address] Care Team Providers Care Lead Pl Sql Developer Name Role Phone Jin Dobson MD Primary Care Provider [phone] Allergies Active Allergy Reactions Criticality Noted Date Comments Vit D3-Vit J-Qdkcobhhc-Nebd Itching Low 01/24/2018 PATIENT STATES THAT SHE IS NOT ALLERGIC TO THIS MED AND IS CURRANTLY TAKING. 10/14/2023 Medications aspirin 81 mg tablet Take 81 mg by mouth daily. Active alendronate (FOSAMAX) 70 mg tablet Take 70 mg by mouth every 7 days. Take in the morning with a full glass of water, on an empty stomach, and do not take anything else by mouth or lie down for the next 30 min. Active metFORMIN (GLUCOPHAGE) 850 mg tablet Take 850 mg by mouth 2 (two) times a day with meals. Active ALPRAZolam (XANAX) 0.25 mg tablet Take 0.25 mg by mouth 2 (two) times a day as needed for anxiety. Active hydroCHLOROthia zide (HYDRODIURIL) 25 mg tablet Take 1 tablet (25 mg total) by mouth daily Active oxybutynin XL (DITROPAN-XL) 5 mg 24 hr tablet Take 1 tablet (5 mg total) by mouth daily Active omeprazole (PriLOSEC) 20 mg capsule Take 1 capsule (20 mg total) by mouth daily Active fenofibrate (TRIGLIDE) 160 mg tablet Take 160 mg by mouth daily. Active albuterol ER (VOSPIRE ER) 8 mg 12 hr tablet Take 8 mg by mouth 2 times daily Active blood glucose diagnostic (ACCU-CHEK KAYLIE PLUS TEST STRP) strip TEST BLOOD SUGAR ONCE DAILY 8 Active ipratropium (ATROVENT) 0.03 % nasal spray Administer 2 sprays into each nostril every 12 (twelve) hours Active sulfamethoxazol e-trimethoprim (BACTRIM DS,SEPTRA DS) 800-160 mg per tablet Take by mouth 2 (two) times a day Active ergocalciferol (VITAMIN D) 50,000 unit capsule take on capsule by mouth once per week 3 Active fluticasone propion-salmete roL (Advair Diskus) 250-50 mcg/dose diskus inhaler Inhale 1 puff every 12 hours Active glimepiride (AMARYL) 1 mg tablet Take 1 tablet (1 mg total) by mouth daily 3 Active HYDROcodone-holly taminophen (Lorcet Plus) 7.5-325 mg per tablet Take 1 tablet by mouth every 6 hours Active irbesartan (AVAPRO) 150 mg tablet Take 1 tablet (150 mg total) by mouth daily Active lancets (onetouch ultrasoft) misc use once per day 2 Active meclizine (ANTIVERT) 25 mg tablet Take 1 tablet (25 mg total) by mouth every 12 hours 3 Active omega-3 fatty acids (LOVAZA) 1 gram capsule Take 4 capsules (4 g total) by mouth daily Active rosuvastatin (CRESTOR) 10 mg tablet Take 1 tablet (10 mg total) by mouth daily Active nicotine (NICOTROL) 10 mg inhaler Inhale 1 puff as needed for smoking cessation 42 each 1 3 Active nicotine (NICODERM CQ) 21 mg APPLY 1 PATCH EVERY DAY 28 patch 4 Active empagliflozin (Jardiance) 10 mg tablet Take 1 tablet (10 mg total) by mouth daily 4 Active umeclidinium (Incruse Ellipta) 62.5 mcg/actuation blister with device Inhale 1 puff (62.5 mcg total) daily 8 Active Active Problems Problem Noted Date Diagnosed Date ILD (interstitial lung disease) (CMS/HCC) 2022 Morbid obesity with BMI of 40.0-44.9, adult 07/2018 Hypercalcemia 04/13/2014 Overview (03/03/2017): HYPERCALCEMIA Osteoporosis 04/13/2014 Overview (03/03/2017): OSTEOPOROSIS NOS Abnormal electrocardiography 07/23/2008 Overview (03/03/2017): ABNORM ELECTROCARDIOGRAM Adiposity 07/23/2008 Overview (03/03/2017): OBESITY NOS Shortness of breath 07/23/2008 Overview (03/04/2017): SHORTNESS OF BREATH Chest pain 07/23/2008 Overview (03/04/2017): CHEST PAIN NOS Preoperative state 07/23/2008 Overview (03/04/2017): PREOP CARDIOVSCLR EXAM Social History Tobacco Use Types Packs/Day Years Used Date Smoking Tobacco: Former Cigarettes Smokeless Tobacco: Never Tobacco Cessation:Counseling Given: Yes Comments:1-2 cigarettes daily Alcohol Use Standard Drinks/Week Comments No 0 (1 standard drink = 0.6 oz pur e alcohol) Comments Unknown Sex and Gender Information Value Date Recorded Sex Assigned at Not on file Legal Sex Female 3:43 AM BRUSHER OPERATOR Gender Identity Not on file Sexual Orientation Not on file Last Filed Vital Signs Vital Sign Reading Time Taken Comments Blood Pressure 104/63 10/14/2023 9:22 AM BRUSHER OPERATOR Pulse 60 10/14/2023 9:22 AM BRUSHER OPERATOR Temperature 36.4 ??C (97.6 ??F) 10/14/2023 9:22 AM CS T Respiratory Rate 18 10/14/2023 9:22 AM BRUSHER OPERATOR Oxygen Saturation 92% 10/14/2023 9:22 AM BRUSHER OPERATOR Inhaled Oxygen Concentration - - Weight 98.4 kg (217 lb) 10/14/2023 9:22 AM BRUSHER OPERATOR Height 152.4 cm (5') 10/14/2023 9:22 AM BRUSHER OPERATOR Body Mass Index 42.38 10/14/2023 9:22 AM BRUSHER OPERATOR Plan of Treatment Not on file Insurance MEDICARE IDPA MEDICARE SOLUTIONS IDPA MEDICARE SOLUTIONS IDPA Care Teams Lead Pl Sql Developer Relationship Specialty Start Date End Date Jin Dobson MD [facility] [place] [address] PCP - General Family Medicine 01/05/24
--- OUTSIDE RECORDS SUMMARY | 2024-12-27 11:09 | XMS_ITS | Patient Health Summary ---
Author Organization [facility] Address [address] [place] [address] Care Team Providers Care Tricot Knitter Name Role Phone Danelle Olsen MD Primary Care Provider [phone] Note from [facility],non-owned Affiliates and Associated Physician Practices is amultiple site organization consisting of ambulatory clinics and hospital sitesin [place], [place], [place] and [place]. This disclosure is being madepursuant to the Care Everywhere program and may not contain all information available regarding this patient. Last updated 18.[facility] Allergies No known active allergies Social History Tobacco Use Types Packs/Day Years Used Date Smoking Tobacco: Every Day Cigarettes Smokeless Tobacco: Never Tobacco Cessation:Ready to Q uit: Not Asked; Counseling Given: Not Answered Alcohol Use Standard Drinks/Week Comments Yes 0 (1 standard drink = 0.6 oz pur e alcohol) soc Sex and Gender Information Value Date Recorded Sex Assigned at Not on file Gender Identity Not on file Sexual Orientation Not on file Last Filed Vital Signs Vital Sign Reading Time Taken Comments Blood Pressure 131/85 08/06/2024 1:23 PM CDT Pulse 55 08/06/2024 1:23 PM CDT Temperature 37 ??C (98.6 ??F) 08/06/2024 1:23 PM CDT Respiratory Rate 19 08/06/2024 1:23 PM CDT Oxygen Saturation 95% 08/06/2024 1:23 PM CDT Inhaled Oxygen Concentration - - Weight 90.7 kg (200 lb) 08/06/2024 10:05 AM CDT Height 152.4 cm (5') 08/06/2024 10:05 AM CDT Body Mass Index 39.06 08/06/2024 10:05 AM CDT Procedures * CT ABDOMEN PELVIS W CONTRAST(Performed 08/06/2024) Performed for Abdominal pain, generalized * URINALYSIS REFLEX MICROSCOPIC REFLEX CULTURE(Performed 08/06/2024) * MAGNESIUM BLOOD(Performed 08/06/2024) * COMPREHENSIVE METABOLIC PANEL(Performed 08/06/2024) * CBC W AUTO DIFFERENTIAL(Performed 08/06/2024) Results * CT Abdomen Pelvis W Contrast (08/06/2024 3:14 PM CDT) Anatomical Region Laterality Modality Abdomen, Pelvis Computed Tomogra phy 08/06/2024 3:21 PM CDT Impressions 08/06/2024 5:39 PM CDT Impression: 1.No acute process identified in the abdomen or pelvis. 2.There is a 2 x 1.5 cm left adrenal nodule. Recommend adrenal protocol CT lesion. > Dictated by Janusz Franco MD, (resident program specialist). I, Adriano Aburto MD have personally reviewed and interpreted this examination/study. > Interpreting Provider: Adriano Aburto MD on 08/06/2024 5:39 PM Narrative 08/06/2024 5:39 PM CDT PROCEDURE: ??CT ABDOMEN PELVIS W CONTRAST, DATE/TIME OF EXAM: ??08/06/2024 3:17 PM, LOCATION ??[facility] INDICATION: R10.84: Abdominal pain, generalized ADDITIONAL CLINICAL INFORMATION: Ordering Provider Reason For Exam: ??r/o hernia, abscess, sbo, cystitis,diverticulitis ??other COMPARISON: None. TECHNIQUE: CT of the abdomen and pelvis was performed following the uneventful administration of 100 mL of Isovue 370 intravenous contrast according to standard protocol. Findings: Lower Chest: Mild bilateral dependent atelectasis is present in the visualized lung bases. Liver: Normal. Gallbladder and Bile Ducts: Gallbladder is normal. No biliary ductal dilation. Spleen: Normal. Pancreas: Normal. Adrenals: There is a 2 x 1.5 cm left adrenal nodule. Right adrenal gland is normal Kidneys: Normal. Gastrointestinal: The stomach and visualized loops of small bowel are unremarkable. Colonic diverticulosis without evidence of diverticulitis is seen. No evidence of bowel obstruction. Stool seen throughout the colon. The appendix is not seen; however, no inflammatory changes are seen in the right lower quadrant. Mesentery/Peritoneum/Retroperitoneum: No free fluid in the abdomen or pelvis. No free intraperitoneal air. No abdominal or retroperitoneal lymphadenopathy. Bladder: Normal. Reproductive Organs: Uterus is absent. Vasculature: Atherosclerotic calcification of the aorta and its branch vessels. Bones: Bone windows demonstrate no suspicious lytic or blastic lesions. The visible osseous structures are intact. Degenerative changes are seen in the spine. Compression deformity of L3 vertebral body, likely due to a Schmorl's node. Soft tissues: Normal. Procedure Note Adriano Aburto MD - 08/06/2024 PROCEDURE: CT ABDOMEN PELVIS W CONTRAST, DATE/TIME OF EXAM: 43:17 PM, LOCATION [facility] INDICATION: R10.84: Abdominal pain, generalized ADDITIONAL CLINICAL INFORMATION: Ordering Provider Reason For Exam: r/o hernia, abscess, sbo, cystitis,diverticulitis other COMPARISON: None. TECHNIQUE: CT of the abdomen and pelvis was performed following the uneventful administration of 100 mL of Isovue 370 intravenous contrast according to standard protocol. Findings: Lower Chest: Mild bilateral dependent atelectasis is present in the visualized lung bases. Liver: Normal. Gallbladder and Bile Ducts: Gallbladder is normal. No biliary ductal dilation. Spleen: Normal. Pancreas: Normal. Adrenals: There is a 2 x 1.5 cm left adrenal nodule. Right adrenal gland is normal Kidneys: Normal. Gastrointestinal: The stomach and visualized loops of small bowel are unremarkable.Colonic diverticulosis without evidence of diverticulitis is seen. No evidenceof bowel obstruction. Stool seen throughout the colon. The appendix is not seen; however, no inflammatory changes are seen in the right lower quadrant. Mesentery/Peritoneum/Retroperitoneum: No free fluid in the abdomen or pelvis. No free intraperitoneal air. No abdominal or retroperitoneal lymphadenopathy. Bladder: Normal. Reproductive Organs: Uterus is absent. Vasculature: Atherosclerotic calcification of the aorta and its branch vessels. Bones: Bone windows demonstrate no suspicious lytic or blastic lesions. The visible osseous structures are intact. Degenerative changes are seen inthe spine. Compression deformity of L3 vertebral body, likely due to a Schmorl's node. Soft tissues: Normal. Impression: 1.No acute process identified in the abdomen or pelvis. 2.There is a 2 x 1.5 cm left adrenal nodule. Recommend adrenal protocolCT lesion. > Dictated by Janusz Franco MD, (resident program specialist). I, Adriano Aburto MD have personally reviewed and interpreted this examination/study. > Interpreting Provider: Adriano Aburto MD on 08/06/2024 5:39 PM Megan Wilkerson APRN-MAGAZINE REPAIRER CT ORDERABLE S * (ABNORMAL) URINALYSIS REFLEX MICROSCOPIC REFLEX CULTURE (08/06/2024 11:11 AM CDT) Color UA Yellow Straw, Yellow 08/06/2024 11:24 AM [facility] Clarity UA Clear Clear 08/06/2024 11:24 AM [facility] Specific [place] UA 1.023 1.005 - 1.030 08/06/2024 11:24 AM [facility] pH UA 5.0 5.0 - 8.0 pH 08/06/2024 11:24 AM [facility] Protein UA Negative Negative 08/06/2024 11:24 AM [facility] Glucose UA 3+(A) Negative 08/06/2024 11:24 AM [facility] Ketone UA Negative Negative 08/06/2024 11:24 AM [facility] Bilirubin UA Negative Negative 08/06/2024 11:24 AM [facility] Blood UA Negative Negative 08/06/2024 11:24 AM [facility] Nitrite UA Negative Negative 08/06/2024 11:24 AM [facility] Leukocyte Esterase Negative Negative 08/06/2024 11:24 AM [facility] Urobilinogen UA Negative Negative mg/dL 08/06/2024 11:24 AM [facility] Comment UA Microscopic not indicated. 08/06/2024 11:24 AM [facility] Urine URINE SPECIMEN OBTAINED BY CLEAN CATCH PROCEDURE / Unknown Collection / Unknown 08/06/2024 11:11 AM CDT 08/06/2024 11:14 AM CDT Narrative [facility] - 08/06/2024 11:24 AM CDT Megan Wilkerson APRN-MAGAZINE REPAIRER LAB - URINAL YSIS ORDERABLES [facility] [address] [place] [address], [facility] [phone] * (ABNORMAL) CBC W AUTO DIFFERENTIAL (08/06/2024 10:56 AM CDT) WBC 5.7 4.0 - 10.7 x10E9/L 08/06/2024 11:12 AM [facility] RBC Count 5.40(H) 3.90 - 5.20 x10E12/L 08/06/2024 11:12 AM [facility] Hemoglobin 15.3 11.9 - 15.8 g/dL 08/06/2024 11:12 AM [facility] Hematocrit 43.3 34.8 - 46.1 % 08/06/2024 11:12 AM [facility] MCV 80.2 80.0 - 98.0 fL 08/06/2024 11:12 AM [facility] MCH 28.3 26.7 - 33.6 pg 08/06/2024 11:12 AM [facility] MCHC 35.3 31.7 - 36.3 g/dL 08/06/2024 11:12 AM [facility] RDW-CV 15.1(H) 11.3 - 14.8 % 08/06/2024 11:12 AM [facility] Platelet Count 164 150 - 420 x10E9/L 08/06/2024 11:12 AM [facility] MPV 11.5(H) 7.8 - 11.4 fL 08/06/2024 11:12 AM [facility] Neutrophil % 53.5 41.0 - 74.0 % 08/06/2024 11:12 AM [facility] Lymphocyte % 32.9 17.0 - 47.0 % 08/06/2024 11:12 AM [facility] Monocyte % 7.9 3.0 - 11.0 % 08/06/2024 11:12 AM [facility] Eosinophil % 4.2 0.0 - 7.0 % 08/06/2024 11:12 AM [facility] Basophil % 1.1 0.0 - 1.6 % 08/06/2024 11:12 AM [facility] Immature Granulocytes % 0.4 0.0 - 1.0 % 08/06/2024 11:12 AM [facility] Neutrophil Absolute 3.04 1.60 - 7.50 x10E9/L 08/06/2024 11:12 AM [facility] Lymphocyte Absolute 1.87 1.00 - 4.40 x10E9/L 08/06/2024 11:12 AM [facility] Monocyte Absolute 0.45 0.15 - 1.00 x10E9/L 08/06/2024 11:12 AM [facility] Eosinophil Absolute 0.24 0.00 - 0.60 x10E9/L 08/06/2024 11:12 AM [facility] Basophil Absolute 0.06 0.00 - 0.13 x10E9/L 08/06/2024 11:12 AM [facility] Blood BLOOD SPECIMEN / Unknown Venipuncture / Unknown 08/06/2024 10:56 AM CDT 08/06/2024 11:04 AM CDT Megan Wilkerson SOFTWARE PROJECT ENGINEER-MAGAZINE REPAIRER LAB - HEMATO LOGY ORDERABLES Performing Organization Address [facility]/State/[facility] Co de Phone Number [facility] [address] [place] [phone], [facility] [phone] * (ABNORMAL) COMPREHENSIVE METABOLIC PANEL (08/06/2024 10:56 AM CDT) BUN 11 7 - 26 mg/dL 08/06/2024 11:29 AM [facility] Creatinine 0.53(L) 0.56 - 0.96 mg/dL 08/06/2024 11:29 AM [facility] Sodium 140 136 - 145 mmol/L 08/06/2024 11:29 AM [facility] Potassium 4.0 3.5 - 4.5 mmol/L 08/06/2024 11:29 AM [facility] Chloride 110(H) 98 - 107 mmol/L 08/06/2024 11:29 AM [facility] CO2 27 22 - 29 mmol/L 08/06/2024 11:29 AM [facility] Glucose 195(H) 70 - 115 mg/dL 08/06/2024 11:29 AM [facility] Calcium 10.1 8.4 - 10.2 mg/dL 08/06/2024 11:29 AM [facility] Protein Total 7.4 6.0 - 8.3 g/dL 08/06/2024 11:29 AM [facility] Albumin 4.0 3.4 - 5.0 g/dL 08/06/2024 11:29 AM [facility] Bilirubin Total 0.9 0.2 - 1.2 mg/dL 08/06/2024 11:29 AM [facility] Alkaline Phosphatase 64 40 - 150 U/L 08/06/2024 11:29 AM [facility] ALT 17 5 - 55 U/L 08/06/2024 11:29 AM [facility] AST 16 5 - 34 U/L 08/06/2024 11:29 AM [facility] Anion Gap 3(L) 6 - 16 08/06/2024 11:29 AM [facility] BUN/Creatinine Ratio 21 7 - 23 08/06/2024 11:29 AM [facility] Osmolality Calculated 295 275 - 295 mOsm/kg 08/06/2024 11:29 AM [facility] Albumin/Globulin Ratio 1.2 1.1 - 2.3 08/06/2024 11:29 AM [facility] eGFR by CKD-EPI >90 >=90 mL/min/1.7 3 m2 08/06/2024 11:29 AM [facility] Blood BLOOD SPECIMEN / Unknown Venipuncture / Unknown 08/06/2024 10:56 AM [facility] 08/06/2024 11:04 AM [facility] Megan Wilkerson SOFTWARE PROJECT ENGINEER-MAGAZINE REPAIRER LAB - CHEMIS TRY ORDERABLES [facility] [address] [place] [phone], [facility] [phone] * MAGNESIUM BLOOD (08/06/2024 10:56 AM CDT) Magnesium 2.0 1.6 - 2.6 mg/dL 08/06/2024 11:29 AM CDT [facility] Blood BLOOD SPECIMEN / Unknown Venipuncture / Unknown 08/06/2024 10:56 AM CDT 08/06/2024 11:04 AM CDT Megan Wilkerson SOFTWARE PROJECT ENGINEER-MAGAZINE REPAIRER LAB - CHEMIS TRY ORDERABLES [facility] [address] [place] [phone], [facility] [phone] Care Teams Tricot Knitter Relationship Specialty Start Date End Date Danelle Olsen MD PCP - General 08/16/19
--- OUTSIDE RECORDS SUMMARY | 2024-12-27 11:09 | XMS_ITS | Clinical Summary ---
Author Organization [facility] Address [address] [place] [address] Care Team Providers Care Hose Cementer Name Role Phone Danelle Olsen MD Primary Care Provider [phone] Source Comments [facility],non-owned Affiliates and Associated Physician Practices is amultiple site organization consisting of ambulatory clinics and hospital sitesin [place], [place], [place] and [place]. This disclosure is being madepursuant to the Care Everywhere program and may not contain all information available regarding this patient. Last updated 18.[facility] Allergies No known active allergies Social History [...] Mass Index 39.06 08/06/2024 10:05 AM CDT Plan of Treatment Health Maintenance Due Date Last Done Comments BONE DENSITY TESTING 1954 COLOGUARD (AGES 45-75) - COLON CA SCREENING 1954 COLON MONITORING 1954 COLONOSCOPY - COLON CA SCREENING 1954 CT COLONOGRAPHY - COLON CA SCREENING 1954 Colorectal Cancer Screening 1954 FIT - COLON CA SCREENING 1954 FLEX SIG - COLON CA SCREENING 1954 LIPID TESTING 1954 MAMMOGRAM 1954 HEPATITIS C SCREENING 08/06/1972 DTAP/TDAP/TD VACCINES (1 - Tdap) 1973 PNEUMOCOCCAL VACCINE 50+ (1 of 2 - PCV) 1973 ZOSTER VACCINE (1 of 2) 2004 COVID-19 VACCINE (5 - season) 2024 10/27/2023, 10/27/2021, 02/21/2021, Additional history exists INFLUENZA VACCINE (#1) 2024 , 09/13/2022, 09/23/2020, Additional history exists DEPRESSION SCREENING 11/28/2024 MEDICARE AWV ? CALENDAR YEAR 2024 Respiratory Syncytial Virus (RSV) Vaccine Pt: or over 60 yrs (1 - 1-dose 75+ series) 2029 HEPATITIS B VACCINE Aged Out No longe r eligible based on patient's age to complete this topic HIB VACCINE Aged Out No longer eligi ble based on patient's age to complete this topic HPV VACCINE Aged Out No longer eligi ble based on patient's age to complete this topic MENINGOCOCCAL (Group B) VACCINE Aged Out No longer eligible based on patient's age to complete this topic MENINGOCOCCAL VACCINE Aged Out No dora anabell eligible based on patient's age to complete this topic Care Teams Hose Cementer Relationship Specialty Start Date End Date Danelle Olsen MD PCP - General 08/16/19
--- OUTSIDE RECORDS SUMMARY | 2024-12-27 11:09 | XMS_ITS | CONTINUITY OF CARE DOCUMENT ---
Author Name toño lundberg Address Unknown Organization [facility] Address [address] [place] [address] [address] [place] [address] Phone [phone] Care Team Providers Care Patient Relations Director Name Role Phone toño lundberg Unavailable Unavailable
--- OUTSIDE RECORDS SUMMARY | 2024-12-27 11:09 | XMS_ITS | Continuity of Care Document ---
Author Organization [facility] Address [address] [place] [address] [place] [address] Phone Care Team Providers [employer] First Officer Name Role Phone Jin Dobson MD Unavailable Unavailable Allergies, Adverse Reactions, Alerts Substance Reaction Status Criticality ergocalciferol (vitamin D2) Active No Information Medications Medication Instructions Dosage Effective Dates (start - stop) Status Comments hydrocodone 7.5 mg-acetaminophen 325 mg tablet take 1 tablet by oral route 2 times every day as needed for pain as needed 1 tablet - Active PRN for pain, avoid driving or operate machines. Pt can not use Amneal brand oxybutynin chloride 5 mg tablet take 1 tablet by oral route every day as needed 5 MG - Active PRN for urinary urgency glimepiride 2 mg tablet take 1 tablet by oral route 2 times every day 2 MG - Active hydrochlorothiazide 25 mg tablet take 1 tablet by oral route every day 25 MG - Active OneTouch Verio test strips use once per day - Active e11.9, omeprazole 20 mg capsule,delayed release take 1 capsule by oral route every day before a meal 20 MG - Active irbesartan 150 mg tablet take 1 tablet b y oral route every day 150 MG - Active rosuvastatin 10 mg tablet take 1 tablet by oral route every day 10 MG - Active Vitamin D2 1,250 mcg (50,000 unit) capsule take on capsule by mouth once per week - Active acyclovir 400 mg tablet take 1 Tablet by oral route every day 400 MG - Active meclizine 25 mg tablet take 1 tablet by oral route 2 times every day as needed as needed 25 MG - Active PRN for vertigo, avoid driving or operate machines cyclobenzaprine 5 mg tablet take 1 tablet by oral route every bedtime as needed 5 MG - Active PRN for pain, avoid driving or operate machines OneTouch Delica Lancets 33 gauge check glucose once per day - Active E11.9 OneTouch Verio Meter use as directed - Active e11.9 OneTouch UltraSoft Lancets use once per day - Active e11.9 Aspir-81 mg tablet,delayed release take 1 tablet by oral route every day - Active Procedures Procedure Date OFFICE/OUTPATIENT VISIT, EST OFFICE/OUTPATIENT VISIT, EST OFFICE/OUTPATIENT VISIT, EST OFFICE/OUTPATIENT VISIT, EST OFFICE/OUTPATIENT VISIT, EST OFFICE/OUTPATIENT VISIT, EST OFFICE/OUTPATIENT VISIT, EST PREV VISIT, EST, 65 & OVER OFFICE/OUTPATIENT VISIT, EST OFFICE/OUTPATIENT VISIT, EST OFFICE/OUTPATIENT VISIT, EST OFFICE/OUTPATIENT VISIT, EST OFFICE/OUTPATIENT VISIT, EST OFFICE/OUTPATIENT VISIT, EST OFFICE/OUTPATIENT VISIT, EST OFFICE/OUTPATIENT VISIT, EST OFFICE/OUTPATIENT VISIT, EST OFFICE/OUTPATIENT VISIT, EST OFFICE/OUTPATIENT VISIT, EST OFFICE/OUTPATIENT VISIT, EST OFFICE/OUTPATIENT VISIT, EST OFFICE/OUTPATIENT VISIT, EST OFFICE/OUTPATIENT VISIT, EST OFFICE/OUTPATIENT VISIT, EST OFFICE/OUTPATIENT VISIT, EST OFFICE/OUTPATIENT VISIT, EST PREV VISIT, EST, 65 & OVER OFFICE/OUTPATIENT VISIT, EST OFFICE/OUTPATIENT VISIT, EST OFFICE/OUTPATIENT VISIT, EST OFFICE/OUTPATIENT VISIT, EST OFFICE/OUTPATIENT VISIT, EST OFFICE/OUTPATIENT VISIT, EST OFFICE/OUTPATIENT VISIT, EST OFFICE/OUTPATIENT VISIT, EST OFFICE/OUTPATIENT VISIT, EST OFFICE/OUTPATIENT VISIT, EST OFFICE/OUTPATIENT VISIT, EST OFFICE/OUTPATIENT VISIT, EST OFFICE/OUTPATIENT VISIT, EST OFFICE/OUTPATIENT VISIT, EST PREV VISIT, EST, 65 & OVER OFFICE/OUTPATIENT VISIT, EST OFFICE/OUTPATIENT VISIT, EST OFFICE/OUTPATIENT VISIT, EST OFFICE/OUTPATIENT VISIT, EST OFFICE/OUTPATIENT VISIT, EST OFFICE/OUTPATIENT VISIT, EST OFFICE/OUTPATIENT VISIT, EST OFFICE/OUTPATIENT VISIT, EST OFFICE/OUTPATIENT VISIT, EST OFFICE/OUTPATIENT VISIT, EST OFFICE/OUTPATIENT VISIT, EST OFFICE/OUTPATIENT VISIT, EST OFFICE/OUTPATIENT VISIT, EST OFFICE/OUTPATIENT VISIT, EST OFFICE/OUTPATIENT VISIT, EST OFFICE/OUTPATIENT VISIT, EST OFFICE/OUTPATIENT VISIT, EST OFFICE/OUTPATIENT VISIT, EST OFFICE/OUTPATIENT VISIT, EST OFFICE/OUTPATIENT VISIT, EST OFFICE/OUTPATIENT VISIT, EST OFFICE/OUTPATIENT VISIT, EST OFFICE/OUTPATIENT VISIT, EST OFFICE/OUTPATIENT VISIT, EST PPPS, initial visit OFFICE/OUTPATIENT VISIT, NEW Advance Directives Directive Yes / No Effective Date File Name No Information Encounters Encounter Description Practice Location Reason(s) For Visit Diagnoses Date Provider Providers Copied on Encounter OFFICE/OUTPA TIENT VISIT, [facility], [address], [place], [address], tel:[phone] [facility] pain (chief complaint) OAB (chief complaint) Chronic pain syndromeOveractive bladder 5 Bronson Abdi. [address], [place], [place], [address] , [place]. tel:[phone] OFFICE/OUTPA TIENT VISIT, [facility], [address] [place], [address], [place] tel:[phone] [facility] pain (chief complaint) HTN (chief complaint) DM (chief complaint) GERD1 (chief complaint) Chronic pain syndromeEssential (primary) hypertensionGERD w/o esophagitisType 2 diabetes mellitus without complications 4 Bronson Abdi. [address], [place], [place], [address] , [place]. tel:[phone] OFFICE/OUTPA TIENT VISIT, [facility], [address] [place], [address], [place] tel:[phone] [facility] pain1 (chief complaint) DM (chief complaint) COPD1 (chief complaint) Chronic pain syndromeCentrilobul ar emphysemaType [address] complicationsEncoun ter for oth screening for malignant neoplasm of breast 4 Bronson Abdi. [address], [place], [place], [address] , [place]. tel:[phone] OFFICE/OUTPA TIENT VISIT, [facility], [address], [address], [place] tel:[phone] [facility] pain (chief complaint) Chronic pain syndrome 4 Bronson Abdi. [address], [place], [place], [address] , [place]. tel:[phone] OFFICE/OUTPA TIENT VISIT, EST [facility], [address], [place], [place], [address], [place] tel:[phone] [facility] DM (chief complaint) GERD1 (chief complaint) pain (chief complaint) Chronic pain syndromeType 2 diabetes mellitus without complicationsGERD w/o esophagitisCoronary artery disease of [place] coronary artery without angina pectoris 4 Bronson Abdi. [address], [place], [place], [address] , [place]. tel:[phone] OFFICE/OUTPA TIENT VISIT, [facility], [address], [place], [place], [address], [place] tel:[phone] [facility] pain (chief complaint) abd pain1 (chief complaint) GlycosuriaChronic pain syndromeLower abdominal pain 4 Bronson Abdi. [address], [place], [place], [address] , [place]. tel:[phone] [facility], [address], [place], [place], [address], [place] tel:[phone] [facility] No Information 4 Bronson Abdi. [address], [place], [place], [address] , [place]. tel:[phone] OFFICE/OUTPA TIENT VISIT, [facility], [address], [place], [place], [address], [place] tel:[phone] [facility] HTN (chief complaint) DM (chief complaint) pain (chief complaint) Essential (primary) hypertensionChronic pain syndromeType 2 diabetes mellitus without complicationsCorona ry artery disease of [place] coronary artery without angina pectoris 4 Bronson Abdi. [address], [place], [address] , [place]. tel:[phone] PREV VISIT, EST, 65 & OVER [facility], [address], [place], [place], [address], [place] tel:[phone] [facility] physical (chief complaint) Encounter for general adult medical exam w abnormal findingsType 2 diabetes mellitus without complicationsSecond lalita polycythemiaChronic pain syndromeGERD w/o esophagitisMixed hyperlipidemiaHyper calcemiaObstructive sleep apnea hypopneaCentrilobul ar emphysemaOther specified disorder of bone densityEssential (primary) hypertension Apr- 4 Bronson Springer [address], [place], [place], [address] , [place]. tel:[phone] OFFICE/OUTPA TIENT VISIT, [facility], [address], [place], [place], [address], [place] tel:[phone] [facility] DM (chief complaint) pain (chief complaint) cough1 (chief complaint) Chronic pain syndromeAcute bronchitisType 2 diabetes mellitus without complicationsMixed hyperlipidemia March- 4 Bronson Springer [address], [place], [place], [address] , [place]. tel:[phone] OFFICE/OUTPA TIENT VISIT, [facility], [address], [place], [place], [address], [place] tel:[phone] [facility] pain (chief complaint) Chronic pain syndrome 4 Bronson Springer [address], [place], [place], [address] , [place]. tel:[phone] OFFICE/OUTPA TIENT VISIT, [facility], [address], [place], [place], [address], [place] tel:[phone] [facility] pain (chief complaint) HSV II (chief complaint) GERD1 (chief complaint) Herpes simplex infectionGERD w/o esophagitis Feb- 4 Bronson Abdi. [address], [place], [place], [address] , [place]. tel:[phone] OFFICE/OUTPA TIENT VISIT, [facility], [address], [place], [place], [address], [place] tel:[phone] [facility] adrenal nodule1 (chief complaint) pain (chief complaint) DM (chief complaint) HTN (chief complaint) Type 2 diabetes mellitus without complicationsBenign neoplasm of left adrenal glandChronic pain syndromeEssential (primary) hypertension Jan- 4 Bronson Abdi. [address], [place], [place], [address] , [place]. tel:[phone] OFFICE/OUTPA TIENT VISIT, [facility], [address], [address], [place] tel:[phone] [facility] pain (chief complaint) DM (chief complaint) adrenal nodule1 (chief complaint) Chronic pain syndromeType 2 diabetes mellitus without complicationsBenign neoplasm of left adrenal gland 4 Bronson Abdi. [address], [place], [place], [address] , [place]. tel:[phone] OFFICE/OUTPA TIENT VISIT, [facility], [address], [address], [place] tel:[phone] [facility] DM (chief complaint) HLP (chief complaint) back pain1 (chief complaint) KCL (chief complaint) Chronic pain syndromeMixed hyperlipidemiaType 2 diabetes mellitus without complicationsHypoka lemia 4 Bronson Abdi. [address], [place], [place], [address] , [place]. tel:[phone] OFFICE/OUTPA TIENT VISIT, [facility], [address], [address], [place] tel:[phone] [facility] pain (chief complaint) DM (chief complaint) Type 2 diabetes mellitus without complicationsChroni c pain syndrome 3 Bronson Abdi. [address], [place], [place], [address] , [place]. tel:[phone] OFFICE/OUTPA TIENT VISIT, [facility], [address], [place], [place], [address], [place] tel:[phone] [facility] pain (chief complaint) GERD1 (chief complaint) ILD (chief complaint) Chronic pain syndromeType 2 diabetes mellitus without complicationsCentri lobular emphysema 3 Dobson Jin. [address], [place], [place], [address] , [place]. tel:[phone] OFFICE/OUTPA TIENT VISIT, [facility], [address], [place], [place], [address], [place] tel:[phone] [facility] pain (chief complaint) DM (chief complaint) Chronic pain syndromeType 2 diabetes mellitus without complicationsInconc lusive mammogram 3 Dobson Jin. [address], [place], [place], [address] , [place]. tel:[phone] OFFICE/OUTPA TIENT VISIT, [facility], [address], [place], [place], [address], [place] tel:[phone] [facility] GERD1 (chief complaint) pain (chief complaint) mammo (chief complaint) Chronic pain syndromeGERD w/o esophagitisInconclu sive mammogram 3 Dobson Jin. [address], [place], [place], [address] , [place]. tel:[phone] OFFICE/OUTPA TIENT VISIT, [facility], [address], [place], [place], [address], [place] tel:[phone] [facility] pain (chief complaint) DM (chief complaint) vertigo1 (chief complaint) osteopenia 1 (chief complaint) Chronic pain syndromeType 2 diabetes mellitus without complicationsOther specified disorder of bone densityBenign paroxysmal vertigo, bilateral Sep-0 3 Dobson Jin. [address], [place], [place], [address] , [place]. tel:[phone] OFFICE/OUTPA TIENT VISIT, [facility], [address], [place], [place], [address], [place] tel:[phone] [facility] HLP (chief complaint) chest pain1 (chief complaint) pain1 (chief complaint) DM (chief complaint) Mixed hyperlipidemiaType 2 diabetes mellitus without complicationsChroni c pain syndromeEssential (primary) hypertension 0 3 Dobson Jin. [address], [place], [place], [address] , [place]. tel:[phone] OFFICE/OUTPA TIENT VISIT, [facility], [address], [place], [place], [address], [place] tel:[phone] [facility] pain (chief complaint) chest pain1 (chief complaint) DM (chief complaint) Ant chest-wall painType 2 diabetes mellitus without complicationsChroni c pain syndrome Frankie-3 3 Dobson Jin. [address], [place], [place], [address] , [place]. tel:[phone] OFFICE/OUTPA TIENT VISIT, [facility], [address], [place], [place], [address], [place] tel:[phone] [facility] pain1 (chief complaint) pain (chief complaint) sty1 (chief complaint) Chronic pain syndromeType 2 diabetes mellitus without complicationsHordeo lum internum left lower eyelidGERD w/o esophagitis Apr- 3 Dobson Jin. [address], [place], [place], [address] , [place]. tel:[phone] OFFICE/OUTPA TIENT VISIT, [facility], [address], [place], [place], [address], [place] tel:[phone] [facility] pain (chief complaint) HLP (chief complaint) DM (chief complaint) Type 2 diabetes mellitus without complicationsMixed hyperlipidemiaChron ic pain syndromeGERD w/o esophagitis 3 Dobson Jin. [address], [place], [place], [address] , [place]. tel:[phone] OFFICE/OUTPA TIENT VISIT, [facility], [address], [place], [place], [address], [place] tel:[phone] [facility] pain (chief complaint) DM (chief complaint) incontinen ce1 (chief complaint) Chronic pain syndromeType 2 diabetes mellitus without complicationsOverac tive bladder Feb- 3 Bronson Abdi. [address], [place], [place], [address] , [place]. tel:[phone] OFFICE/OUTPA TIENT VISIT, EST [facility], [address], [place], [place], [address], [place] tel:[phone] [facility] DM (chief complaint) pain (chief complaint) osteopenia 1 (chief complaint) GERD1 (chief complaint) Other specified disorder of bone densityChronic pain syndromeType 2 diabetes mellitus without complicationsGERD w/o esophagitisCentrilo bular emphysema Jan- 3 Bronson Abdi. [address], [place], [address] , [place]. tel:[phone] [facility], [address], [place], [place], [address], [place] tel:[phone] [facility] No Information 3 Bronson Abdi. [address], [place], [place], [address] , [place]. tel:[phone] PREV VISIT, EST, 65 & OVER [facility], [address], [place], [place], [address], [place] tel:[phone] [facility] physical (chief complaint) Encounter for general adult medical exam w abnormal findingsMixed hyperlipidemiaType 2 diabetes mellitus without complicationsEssent ial (primary) hypertensionOther specified disorder of bone densityOveractive bladderGERD w/o esophagitisPrimary central sleep apnea 3 Bronson Abdi. [address], [place], [place], [address] , [place]. tel:[phone] OFFICE/OUTPA TIENT VISIT, EST [facility], [address], [place], [place], [address], [place] tel:[phone] [facility] DM (chief complaint) HLP (chief complaint) HTN (chief complaint) pain (chief complaint) HSVII (chief complaint) Chronic pain syndromeMixed hyperlipidemiaType 2 diabetes mellitus without complicationsOther specified disorder of bone densityHerpes simplex infection 3 Bronson Jin. [address], [place], [place], [address] , [place]. tel:[phone] OFFICE/OUTPA TIENT VISIT, [facility], [address], [place], [place], [address], [place] tel:[phone] [facility] pain (chief complaint) ear pain1 (chief complaint) HTN (chief complaint) Chronic pain syndromeOtalgia, right earEssential (primary) hypertension 2 Bronson Abdi. [address], [place], [place], [address] , [place]. tel:[phone] OFFICE/OUTPA TIENT VISIT, [facility], [address], [place], [place], [address], [place] tel:[phone] [facility] pain (chief complaint) HLP (chief complaint) DM (chief complaint) oAB (chief complaint) Chronic pain syndromeType 2 diabetes mellitus without complicationsMixed hyperlipidemiaOvera ctive bladder 2 Bronson Jin. [address], [place], [place], [address] , [place]. tel:[phone] OFFICE/OUTPA TIENT VISIT, [facility], [address], [place], [place], [address], [place] tel:[phone] [facility] pain (chief complaint) GERD1 (chief complaint) GERD w/o esophagitisChronic pain syndrome 2 Bronson Jin. [address], [place], [place], [address] , [place]. tel:[phone] OFFICE/OUTPA TIENT VISIT, [facility], [address], [place], [place], [address], [place] tel:[phone] [facility] pain (chief complaint) DM (chief complaint) mammo (chief complaint) Type 2 diabetes mellitus without complicationsChroni c pain syndromeEncounter for oth screening for malignant neoplasm of breast 2 Bronson Jin. [address], [place], [place], [address] , [place]. [phone] OFFICE/OUTPA TIENT VISIT, [facility], [address], [place], [place], [address], [place] tel:[phone] [facility] pain (chief complaint) HTN (chief complaint) HLP (chief complaint) Chronic pain syndromeEssential (primary) hypertensionMixed hyperlipidemia 2 Bronson Abdi. [address], [place], [place], [address] , [place]. tel:[phone] OFFICE/OUTPA TIENT VISIT, [facility], [address], [place], [place], [address], [place] tel:[phone] [facility] pain (chief complaint) GERD1 (chief complaint) EsophagitisChronic pain syndrome 2 Bronson Abdi. [address], [place], [place], [address] , [place]. [phone] OFFICE/OUTPA TIENT VISIT, [facility], [address], [place], [address], [place] tel:[phone] [facility] pain (chief complaint) GERD1 (chief complaint) COPD1 (chief complaint) Chronic pain syndromeGERD w/o esophagitisEmphysem a 2 Bronson Abdi. [address], [place], [place], [address] , [place]. tel:[phone] OFFICE/OUTPA TIENT VISIT, [facility], [address], [place], [place], [address], [place] tel:[phone] [facility] pain (chief complaint) GERD1 (chief complaint) sleep apnea1 (chief complaint) incontinen ce1 (chief complaint) Chronic pain syndromeSleep apneaGERD w/o esophagitisMixed incontinence 2 Bronson Abdi. [address], [place], [place], [address] , [place]. tel:[phone] OFFICE/OUTPA TIENT VISIT, [facility], [address], [place], [place], [address], [place] tel:[phone] [facility] pain (chief complaint) Chronic pain syndrome 2 Bronson Jin. [address], [place], [place], [address] , [place]. tel:[phone] OFFICE/OUTPA TIENT VISIT, [facility], [address], [place], [place], [address], [place] tel:[phone] [facility] sick (chief complaint) Viral infection 2 Bronson Abdi. [address], [place], [place], [address] , [place]. tel:[phone] OFFICE/OUTPA TIENT VISIT, [facility], [address], [place], [place], [address], [place] tel:[phone] [facility] pain (chief complaint) pain (chief complaint) Chronic pain syndromeUrge incontinence 2 Bronson Jin. [address], [place], [place], [address] , [place]. tel:[phone] OFFICE/OUTPA TIENT VISIT, [facility], [address], [place], [place], [address], [place] tel:[phone] [facility] pain (chief complaint) Chronic pain syndrome Fe 2 Bronson Abdi. [address], [place], [place], [address] , [place]. tel:[phone] PREV VISIT, EST, 65 & OVER [facility], [address], [place], [place], [address], [place] tel:[phone] [facility] physical (chief complaint) Encounter for general adult medical exam w abnormal findingsHyperlipide miaGERD w/o esophagitisHerpes simplex infectionMetabolic syndromeOther specified disorder of bone densitySleep apneaOveractive bladderChronic pain syndromeEssential (primary) hypertension 2 Dobson Jin. [address], [place], [place], [address] , [place]. tel:[phone] OFFICE/OUTPA TIENT VISIT, [facility], [address], [place], [place], [address], [place] tel:[phone] [facility] pain (chief complaint) OAB (chief complaint) HLP (chief complaint) sleep apnea1 (chief complaint) Chronic pain syndromeHyperlipide miaOveractive bladderSleep apnea 1 Bronson Springer [address], [place], [place], [address] , [place]. tel:[phone] OFFICE/OUTPA TIENT VISIT, [facility], [address], [address], [place] tel:[phone] [facility] pain (chief complaint) GERD1 (chief complaint) Chronic pain syndromeGERD w/o esophagitis 1 Bronson Springer [address], [place], [place], [address] , [place]. tel:[phone] OFFICE/OUTPA TIENT VISIT, [facility], [address], [address], [place] tel:[phone] [facility] pain (chief complaint) HSV II (chief complaint) Chronic pain syndromeHerpes simplex infection 1 Bronson Springer [address], [place], [place], [address] , [place]. tel:[phone] OFFICE/OUTPA TIENT VISIT, [facility], [address], [address], [place] tel:[phone] [facility] pain (chief complaint) pain (chief complaint) HLP (chief complaint) glucose1 (chief complaint) Metabolic syndromeHyperlipide miaChronic pain syndromeEncounter for oth screening for malignant neoplasm of breast Jul-0 1 Bronson Springer [address], [place], [place], [address] , [place]. tel:[phone] OFFICE/OUTPA TIENT VISIT, [facility], [address], [place], [place], [address], [place] tel:[phone] [facility] pain (chief complaint) Chronic pain syndrome 1 Bronson Springer [address], [place], [place], [address] , [place]. tel: [phone] OFFICE/OUTPA TIENT VISIT, [facility], [address], [place], [place], [address], [place] [phone] [facility] pain (chief complaint) HTN (chief complaint) DM (chief complaint) HLP (chief complaint) Essential (primary) hypertensionChronic pain syndromeHyperlipide miaType 2 diabetes mellitus without complicationsOther specified disorder of bone densityEncounter for oth screening for malignant neoplasm of breast 1 Bronson Springer [address], [place], [place], [address] , [place]. tel:[phone] OFFICE/OUTPA TIENT VISIT, [facility], [address], [place], [place], [address], [place] tel:[phone] [facility] HLP (chief complaint) GERD1 (chief complaint) pain (chief complaint) HSVII (chief complaint) HTN (chief complaint) Chronic pain syndromeGERD w/o esophagitisHerpes simplex infectionHyperlipid emiaEssential (primary) hypertension 1 Bronson Springer [address], [place], [place], [address] , [place]. tel: [phone] OFFICE/OUTPA TIENT VISIT, [facility], [address], [address], [place] tel:[phone] [facility] pain (chief complaint) abd (chief complaint) DM (chief complaint) OAB (chief complaint) Chronic pain syndromeGERD w/o esophagitisOveracti ve bladderType 2 diabetes mellitus without complicationsCatara ctSleep apnea 1 Bronson Springer [address], [place], [place], [address] , [place]. tel:[phone] OFFICE/OUTPA TIENT VISIT, [facility], [address] [place] [place], [address], [place] tel:[phone] [facility] back pain1 (chief complaint) osteopenia 1 (chief complaint) gassy1 (chief complaint) Chronic pain syndromeIrritable bowel syndromeOther specified disorder of bone density 1 Bronson Springer [address], [place], [place], [address] , [place]. tel:[phone] OFFICE/OUTPA TIENT VISIT, [facility], [address] [place], [address], [place] tel:[phone] [facility] pain (chief complaint) HSV (chief complaint) Chronic pain syndromeHerpes simplex infection 1 Bronson Springer [address], [place], [place], [address] , [place]. [phone] OFFICE/OUTPA TIENT VISIT, [facility], [address] [place] [place], [address], [place] tel:[phone] [facility] pain (chief complaint) headache1 (chief complaint) sleep apnea1 (chief complaint) GERD1 (chief complaint) Chronic pain syndromeGERD w/o esophagitisHeadache , unspecifiedSleep apnea 1 Bronson Springer [address], [place], [place], [address] , [place]. tel:[phone] OFFICE/OUTPA TIENT VISIT, [facility], [address] [place] [place], [address], [place] tel:[phone] [facility] pain (chief complaint) HNT (chief complaint) Chronic pain syndromeEssential (primary) hypertension 1 Bronson Springer [address], [place], [place], [address] , [place]. [phone] OFFICE/OUTPA TIENT VISIT, [facility], [address], [place], [place], [address], [place] tel:[phone] [facility] pain (chief complaint) GERD1 (chief complaint) GERD w/o esophagitisChronic pain syndrome 0 Bronson Springer [address], [address], [place], [place], [address] , [place]. tel:[phone] OFFICE/OUTPA TIENT VISIT, [facility], [address], [place], [place], [address], [place] tel:[phone] [facility] chronic pain1 (chief complaint) GERD1 (chief complaint) genital herpes1 (chief complaint) HLP (chief complaint) GERD w/o esophagitisChronic pain syndromeHerpes simplex infectionHyperlipid emia 0 Bronson Springer [address], [address], [place], [place], [address] , [place]. tel:[phone] Referring Provider: Maddy Burgos [address], [place], [place], [address]. tel:[phone] OFFICE/OUTPA TIENT VISIT, [facility], [address], [place], [place], [address], [place] tel:[phone] [facility] pain1 (chief complaint) DM (chief complaint) abd pain1 (chief complaint) Chronic pain syndromeGERD w/o esophagitisType 2 diabetes mellitus without complications 0 Bronson Springer [address], [place], [place], [address] , [place]. tel:[phone] Referring Provider: Maddy Burgos [address], [place], [address]. tel:[phone] OFFICE/OUTPA TIENT VISIT, [facility], [address], [place], [address], [place] tel:[phone] [facility] pain1 (chief complaint) osteopenia 1 (chief complaint) HTN (chief complaint) OAB (chief complaint) asthma1 (chief complaint) GERD w/o esophagitisEssentia l (primary) hypertensionOveract marlon bladderChronic pain syndromeEmphysemaOt her specified disorder of bone density Sep-0 0 Bronson Springer [address], [address], [place], [address] , [place]. [phone] Referring Provider: Maddy Burgos [address], [place], [address]. tel:[phone] OFFICE/OUTPA TIENT VISIT, [facility], [address], [place], [place], [address], [place] [phone] [facility] pain1 (chief complaint) anxiety1 (chief complaint) GERD1 (chief complaint) GERD w/o esophagitisGenerali zed Anxiety DisorderAbdominal painChronic pain syndromeHerpes simplex infection Jun-0 0 Bronson Springer [address], [place], [place], [address] , [place]. [phone] Referring Provider: Maddy Burgos [address], [place], [address]. tel:[phone] OFFICE/OUTPA TIENT VISIT, [facility], [address], [place], [place], [address], [place] tel:[phone] [facility] anxiety1 (chief complaint) pain1 (chief complaint) abd pain1 (chief complaint) Chronic pain syndromeGERD w/o esophagitisAbdomina l painDepression May-0 0 Bronson Springer [address], [place], [address] , [place]. [phone] Referring Provider: Maddy Burgos [address], [place], [address]. tel:[phone] OFFICE/OUTPA TIENT VISIT, [facility], [address], [place], [place], [address], [place] tel:[phone] [facility] anxiety1 (chief complaint) pain1 (chief complaint) Chronic pain syndromeGeneralized Anxiety Disorder Frankie-0 0 Dobson Jin. [address], [place], [place], [address] , [place]. tel:[phone] Referring Provider: Maddy Burgos [address], [place], [place], [address]. tel:[phone] OFFICE/OUTPA TIENT VISIT, [facility], [address], [place], [address], [place] tel:[phone] [facility] osteopenia 1 (chief complaint) HSV II (chief complaint) DM (chief complaint) pain (chief complaint) HLP (chief complaint) Type 2 diabetes mellitus without complicationsHerpes simplex infectionOther specified disorder of bone densityChronic pain syndromeHyperlipide ramon 0 Bronson Abdi. [address], [place], [place], [address] , [place]. tel:[phone] Referring Provider: Maddy Burgos [facility], [place], [place], [address]. tel:[phone] OFFICE/OUTPA TIENT VISIT, [facility], [address], [place], [place], [address], [place] tel:[phone] [facility] DM (chief complaint) HSVII (chief complaint) osteopenia 1 (chief complaint) OAB (chief complaint) HTN (chief complaint) pain1 (chief complaint) Herpes simplex infectionOther specified disorder of bone densityGERD w/o esophagitisType 2 diabetes mellitus without complicationsOverac tive bladderChronic pain syndromeEssential (primary) hypertension Feb-0 0 Bronson Abdi. [address], [place], [address] , [place]. [phone] Referring Provider: Maddy Burgos [address], [place], [address]. tel:[phone] OFFICE/OUTPA TIENT VISIT, [facility], [address], [place], [address], [place] tel:[phone] [facility] COPD1 (chief complaint) fatty liver (chief complaint) osteopenia 1 (chief complaint) HSV II (chief complaint) toenail fungus (chief complaint) chronic pain (chief complaint) Other specified disorder of bone densityEssential (primary) hypertensionGERD w/o esophagitisHerpes simplex infectionEmphysemaF atty liverChronic pain syndromeDermatophyt osis of nail 0 Bornson Springer [address], [place], [place], [address] , [place]. tel:[phone] Referring Provider: Jin Dobson, Maddy [facility], [place], [place], [address]. tel:[phone] OFFICE/OUTPA TIENT VISIT, [facility], [address], [place], [address], [place] tel:[phone] [facility] shoulder pain1 (chief complaint) HTN (chief complaint) osteoporos is1 (chief complaint) Shortness of breathMuscle spasm of backEssential (primary) hypertensionOsteopo rosis 0 Bronson Springer [address], [place], [address] , [place]. tel:[phone] Referring Provider: Maddy Burgos [facility], [place], [address]. tel:[phone] OFFICE/OUTPA TIENT VISIT, [facility], [address], [place], [place], [address], [place] tel:[phone] [facility] Physical (chief complaint) Encounter for general adult medical exam w abnormal findingsType 2 diabetes mellitus without complicationsOverac tive bladderOsteoporosis Essential (primary) hypertensionHerpes simplex infectionChronic pain syndromeSleep apnea 0 Bronson Springer [address], [place], [place], [address] , [place]. tel:[phone] Referring Provider: Maddy Burgos [address] [facility] [address], [place], [place], [address]. tel:[phone] Family History Family Member Type Diagnosis Age At Onset Sister Problem (finding) HTN Father Problem (finding) of COPD (Cause Of ) 74 Mother Problem (finding) Hypertension Mother Problem (finding) Diabetes mellitus Mother Problem (finding) of CAD 64 Sister Problem of stomach [place] Payers Payer name Insurance type Covered republican ID Tatianna gimenez(s) [facility] [id number] Social History Type Description Quantity Date Captured Comments Alcohol Use Details beer & liquor Caffeine Use Details Unknown Tobacco Use Status Ex-cigarette smoker 025 Smoking Status Former smoker Sex Female Vital Signs Date / Time: Height Weight BMI Pulse Rate Blood Pressure Temperature Respiratory Rate Body Surface Area Head Circumference BMI percentile Pulse Ox Inhaled Ox 12:23 PM 60.00 in 228.00 lbs 44.5 3 kg/m eter (2) 57 /min 112/70 mm[Hg] 97.0 F 16 /min Chief Complaint And Reason For Visit From encounter dated '12/19/2024 11:39'. pain (chief complaint). Description: Pt has chronic back and shoulder pain. Pt denies any sciatica or any loss of bladder control. Pt has DDD Pt takes norco PRn for pain and doing ok.. Pt denies any saddle area paresthesia.. Pt denies any neuropathy OAB (chief complaint). Description: Pt has OAB pt takes oxybutynin PRN only Pt needs it refilled. Plan Of Treatment Date Type Action Status Goal Tobacco cessation counseling completed Goal Tobacco cessation counseling completed Goal Tobacco cessation counseling completed Referral Ordered: MRI ABDOMEN W/DYE ordered Referral Referred To: Lang Mahan [address] [place] [address], [phone] Ordered: Referrals: Lang Mahan. Evaluate and treat ordered Referral Ordered: Otolaryngology (related to Otalgia, right ear) ordered Referral Ordered: Referrals: Otolaryngology. Evaluate and treat ordered Referral Ordered: LUMBAR XRAY AP AND LAT ONLY ordered Referral Ordered: OPERATIVE UPPER GI ENDOSCOPY ordered Referral Ordered: CT ABDOMEN&PELVIS W/CONTRAST ordered Referral Ordered: CT THORAX W/DYE ordered Referral Ordered: DXA BONE DENSITY, AXIAL ordered Referral Ordered: MAMMOGRAM, SCREENING ordered History Of Present Illness Encounter Date Complaint History Of Prese nt Illness pain Pt has chronic b ack and shoulder pain. Pt denies any sciatica or any loss of bladder control. Pt has DDD Pt takes norco PRn for pain and doing ok.. Pt denies any saddle area paresthesia.. Pt denies any neuropathy OAB Pt has OAB pt ta kes oxybutynin PRN only Pt needs it refilled. DM Pt has DM Pt ladonna es amaryl and her glucose is around 110s. Pt needs it refilled pain Pt has chronic b ack and shoulder pain. Pt denies any sciatica or any loss of bladder control. Pt has DDD Pt takes norco PRn for pain and doing ok.. Pt denies any saddle area paresthesia.. Pt denies any neuropathy HTN Pt has mild HTN and occasional ankle swelling Pt takes irbesartan and she only takes hct PRN when she has swelling, which is not every day GERD1 Pt has history o f GERD Pt no longer has GERD and she weaned herself off pepcid DM Pt has DM. Pt st ates that jardiance is causing stomach upset and she is off jardiance and she is on amaryl only and her glucose is around 120s . Pt states that stomach upset resolved without jardiance COPD1 Pt has intermitt ent sob and she had negative chest CT and 6 mins walking test and her PFT showed mild COPD pain1 Pt has chronic b ack and shoulder pain. Pt denies any sciatica or any loss of bladder control. Pt has DDD Pt takes norco PRn for pain and doing ok.. Pt denies any saddle area paresthesia.. Pt denies any neuropathy pain Pt has chronic b ack and shoulder pain. Pt denies any sciatica or any loss of bladder control. Pt has DDD Pt takes norco PRn for pain and doing ok.. Pt denies any saddle area paresthesia.. Pt denies any neuropathy Sep-27-2024 pain Pt has chronic b ack and shoulder pain. Pt denies any sciatica or any loss of bladder control. Pt has DDD Pt takes norco PRn for pain and doing ok.. Pt denies any saddle area paresthesia.. Pt denies any neuropathy DM Pt has DM Pt is on amaryl and jardiance and her glucose is around 115s .Pt denies any hypoglycemia Pt denies any urinary symptoms GERD1 Pt has chronic G ERD Pt takes omeprazole and doing ok Pt needs omeprazole refilled. Pt denies any abd pain pain Pt has chronic b ack and shoulder pain. Pt denies any sciatica or any loss of bladder control. Pt has DDD Pt takes norco PRn for pain and doing ok.. Pt denies any saddle area paresthesia.. Pt denies any neuropathy abd pain1 Pt c/o acute ons et of low pelvic, abdominal pain since two weeks ago pt denies any nausea, vomiting, diarrhea or constipation Pt denies any blood in stool pt denies any urinary symptoms Pt denies any fever, chill Pt went to ER and she had negative CT scan and lab and urine test Pt was given diflucan x 1 which did help her pain Pt denies any vaginal itching or discharge. Pt states that she still has mild sharp pain around low pelvic area. pain Pt has chronic b ack and shoulder pain. Pt denies any sciatica or any loss of bladder control. Pt has DDD Pt takes norco PRn for pain and doing ok.. Pt denies any saddle area paresthesia.. Pt denies any neuropathy DM Pt has DM pt is on amaryl and jardiance 25 mg and her glucose is around 140s. Pt denies any polyuria polydipsia. HTN Pt has HTN, pt i s on irbesartan and hctz and her bp was low at cardiology office and hctz was stopped. Pt is only taking irbesartan now and hre bp is ok. Pt has mild CAD pt denies any chest pain or sob Pt saw cardiology and she will do cardiac echo and stress test physical pt needs annual physical pt has chronic back and shoulder pain pt has DDD Pt denies any sciatica or any loss of bowel or bladder control or saddle area paresthesia Pt has HLP Pt takes crestor and her lipid profile is ok. Pt has DM Pt takes Amaryl and jardiance and her glucose and A1c are getting worse, Pt has mild COPD and sleep apnea Pt uses albuterol PRn and she uses BIPAP at night. Pt has mildly high calcium and polycythemia as well. Pt has chronic GERD Pt takes omeprazole and pepcid doing ok. Pt has OAB .Pt takes ditropan PRN only pain Pt has chronic b ack and shoulder pain. Pt denies any sciatica or any loss of bladder control. Pt has DDD Pt takes norco PRn for pain and doing ok.. Pt denies any saddle area paresthesia.. Pt denies any neuropathy cough1 Pt c/o persisten t productive cough, chest congestion, sinus congestion, postnasal drainage for one week Pt denies any fever or sob Pt went to ER and she was given dymista and also tessalon but her symptoms are not improving. Pt denies any sore throat DM Pt has DM Pt ladonna es amaryl and jardiance and her glucose is around 120s Pt denies any polyuria, polydipsia. pain Pt has chronic b ack and shoulder pain. Pt denies any sciatica or any loss of bladder control. Pt has DDD Pt takes norco PRn for pain and doing ok.. Pt denies any saddle area paresthesia.. 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 Pt denies any outbreak GERD1 Pt has chronic G ERD Pt takes omeprazole .Pt needs refilled. Pt denies any GERD or abd pain while on omeprazole. HTN Pt has HTN pt ta kes irbesartan and hctz and her bp is stable . adrenal nodule1 Pt has benign ad renal nodule. Pt had MRI which confirmed stable adrenal adenoma. pain Pt has chronic b ack and shoulder pain. Pt denies any sciatica or any loss of bladder control. Pt has DDD Pt takes norco PRn for pain and doing ok.. Pt denies any saddle area paresthesia.. Pt denies any neuropathy DM Pt has DM pt ladonna es jardiance and amaryl and her glucose is around 120 Pt needs test strip refilled . pain Pt has chronic b ack and shoulder pain. Pt denies any sciatica or any loss of bladder control. Pt has DDD Pt takes norco PRn for pain and doing ok.. Pt denies any saddle area paresthesia.. Pt denies any neuropathy DM Pt has DM Pt ladonna es amaryl and jardiance and BG is around 115s Pt denies any hypoglycemia. adrenal nodule1 Pt has incidenta l left adrenal nodule on CT scan last September. Pt denies any flank pain DM Pt has DM Pt ladonna es amaryl 2 mg BID Pt stats that her glucose is around 150 in the morning and around 160 at night Pt denies any polyuria, polydipsia. HLP Pt has HLP Pt kassy [place] and her lipid profile is ok from two days ago. back pain1 Pt has chronic b ack and shoulder pain. Pt denies any sciatica or any loss of bladder control. Pt has DDD Pt takes norco PRn for pain and doing ok.. Pt denies any saddle area paresthesia.. Pt denies any neuropathy KCL Pt has mild low KCL on lab from cardiology two days ago Pt carla any diarrhea or vomiting Pt denies any chest pain or palpitation pain Pt has chronic b ack and shoulder pain. Pt denies any sciatica or any loss of bladder control. Pt has DDD Pt takes norco PRn for pain and doing ok.. Pt denies any saddle area paresthesia.. Pt has mild neuropathy symptoms DM Pt has DM Pt is on amaryl 1 mg BID and her fasting glucose is still around 150s and occasionally 200. pain Pt has chronic b ack and shoulder pain. Pt denies any sciatica or any loss of bladder control. Pt has DDD Pt takes norco PRn for pain and doing ok.. Pt denies any saddle area paresthesia.. Pt has mild neuropathy symptoms GERD1 Pt has been taki ng amaryl and her glucose is over 200. Pt is off metformin and her GI symptoms resolved. Pt states that amaryl is not controlling her glucose well ILD PIt has ILD and also emphysema Pt just quit smoking two weeks ago. Pt could not tolerate Wixela and she is on albuterol daily .Pt was referred to [facility] pulmonary and she had another PFT and chest Ct done yesterday. Pt has pati with pulmonary tomorrow pain Pt has chronic b ack and shoulder pain. Pt denies any sciatica or any loss of bladder control. Pt has DDD Pt takes norco PRn for pain and doing ok.. Pt denies any saddle area paresthesia.. Pt has mild neuropathy symptoms DM Pt has DM. Pt ta kes metformin PRN only when her glucose is high Pt states that she has stomach cramp and some diarrhea when she takes metformin. Pt states that her glucose is around 140. GERD1 Pt has chronic G ERD Pt had benign EGD Pt takes omeprazole daily and doing ok Pt failed pepcid Pt has daily GERD without omeprazole pain Pt has chronic b ack and shoulder pain. Pt denies any sciatica or any loss of bladder control. Pt has DDD Pt takes norco PRn for pain and doing ok.. Pt denies any saddle area paresthesia.. Pt has mild neuropathy symptoms mammo Pt denies any br east issue Pt needs annual mammo pain Pt has chronic b ack and shoulder pain. Pt denies any sciatica or any loss of bladder control. Pt has DDD Pt takes norco PRn for pain and doing ok.. Pt denies any saddle area paresthesia.. Pt has mild neuropathy symptoms DM Pt has DM pt ladonna es metformin again and her glucose is around 99. Pt tolerating metformin ok vertigo1 Pt has intermitt ent vertigo. Pt takes meclizine PRn and doing ok pt needs refill Pt denies any headache or syncope osteopenia1 Pt has osteopeni a. Pt takes calcium and D and she is working on weight bearing exercise. HLP Pt has HLP Pt kassy [place] Pt had lab done and her LDL was 62. Pt has high TG chest pain1 Pt has history o f atypical chest pain Pt saw cardiology and was cleared for any further cardiac work up at this point .Pt was told to take fish oil pain1 Pt has chronic b ack and shoulder pain. Pt denies any sciatica or any loss of bladder control. Pt has DDD Pt takes norco PRn for pain and doing ok.. Pt denies any saddle area paresthesia.. Pt has mild neuropathy symptoms DM Pt has DM. Pt st ates that her glucose was 300 recently and she has been off metformin and rybelsus. Pt denies any polyuria polydipsia. Pt also need test strip refilled . pain Pt has chronic b ack and shoulder pain. Pt denies any sciatica or any loss of bladder control. Pt has DDD Pt takes norco PRn for pain and doing ok.. Pt denies any saddle area paresthesia.. Pt has mild neuropathy symptoms DM Pt has been off rybelsus and metformin and her glucose is around 95-100. Pt denies any Gi issue without rybelsus chest pain1 Pt c/o acute ons et of left side chest pain with radiation of pain to left shoulder and left arm 8 days ago Pt was sitting down resting while this occurred .Pt denies any sob Pt denies any injury Pt c/o sharp pain Pt went to ER and she had nonspecific ELG and benign chest x ray and troponin was negative Pt was diagnosed with atypical chest pain .Pt was given naproxen and flexeril which helped the chest pain Pt denies any pain currently sty1 Pt has an acute onset of sty left lower eyelid since two days ago Pt denies any vision change or eye pain or eye redness or drainage pain1 Pt has stomach p ain and stomach upset and mild nausea every time she takes rybelsus. Pt takes omeprazole and pepcid for GERD pain Pt has chronic b ack and shoulder pain. Pt denies any sciatica or any loss of bladder control. Pt has DDD Pt takes norco PRn for pain and doing ok.. Pt denies any saddle area paresthesia.. Pt has mild neuropathy symptoms pain Pt has chronic b ack and shoulder pain. Pt denies any sciatica or any loss of bladder control. Pt has DDD Pt takes norco PRn for pain and doing ok.. Pt denies any saddle area paresthesia.. Pt has mild neuropathy symptoms HLP Pt has HLP Pt ta kerry cardor. Pt carla any myalgia. her lipid profile is stable DM Pt takes rybelsu s 3.5 mg daily and her glucose is around 100. Pt denies any GI side effects. Pt needs test strips pain Pt has chronic b ack and shoulder pain. Pt denies any sciatica or any loss of bladder control. Pt has DDD Pt takes norco PRn for pain and doing ok.. Pt denies any saddle area paresthesia.. Pt has mild neuropathy symptoms DM Pt is on rybelsu s and she states that her Bg usually runs around 150 and when she takes 7 mg rybelsus and her glucose drops down to 120 and it makes her shaky so she has been taking 1/2 of rybelsus 7 mg daily and she feels fine. Pt is off metformin incontinence1 Pt has chronic i ncontinence. Pt has OAB pt takes ditropan PRn pt needs pull up depends order signed. pain Pt has chronic b ack and shoulder pain. Pt denies any sciatica or any loss of bladder control. Pt has DDD Pt takes norco PRn for pain and doing ok.. Pt denies any saddle area paresthesia.. Pt has mild neuropathy symptoms GERD1 Pt has chronic G ERD Pt state that her GERD symptoms resolved without metformin Pt has not been taking omeprazole or pepcid. Pt denies any abd pain osteopenia1 Pt has osteopeni a Pt takes calcium and D. Her bone density actually improved. Pt denies any fracture. DM Pt has DM Pt sta rted rybelsus 3 mg last month and she is off metformin and she feels much better Pt states that her glucose is around 120s. Pt denies any GI side effects. Pt notices slightly appetite suppression .Pt states that rybelsus works much better than metformin. physical Pt needs annual physical, pt has multiple medical condition Pt has chronic back and shoulder pain Pt takes norco PRN for pain and doing ok. Pt has osteopenia Pt takes calcium and D and doing ok Pt has genital herpes. Pt takes acyclovir and doing ok Pt denies any outbreak. Pt has chronic GERD Pt takes omeprazole and pepcid and doing ok. Pt has HLP Pt takes zocor Pt denies any myalgia Her lipid is borderline high Pt has HTN Pt takes irbesartan and hctz. Pt has OAB Pt takes ditropan PRn only. pt also has borderline DM Pt takes metformin but is causing GI upset. Pt has COPD .Pt sees pulmonary and she also uses cpap nightly. pain Pt has chronic b ack and shoulder pain. Pt denies any sciatica or any loss of bladder control. Pt has DDD Pt takes norco PRn for pain and doing ok.. Pt denies any saddle area paresthesia.. Pt has mild neuropathy symptoms HSVII Pt has genital h erpes Pt takes acyclovir and she denies any outbreak. Pt needs acyclovir refilled DM Pt has borderlin e DM P takes metformin and her glucose is around 110 at home. Her A1c is 6.0. pt denies any neuropathy HLP Pt has HLP ,Pt t akes zocor Pt denies any myalgia. her lipid profile is borderline hig HTN Pt has osteopeni a. Pt takes calcium and D and she needs vitamin D refilled ear pain1 Pt c/o acute ons et of right ear pain and tinnitus with hearing loss x 2 weeks. Pt went to ER 3 weeks ago and she was given ear drop and amoxicillin and flonase but did not help and she went to pulmonary 3 days ago and she was given another oral abx and she is on it and she does not notice any improvement yet. Pt denies any sinus congestion or sore throat pain Pt has chronic b ack and shoulder pain. Pt denies any sciatica or any loss of bladder control. Pt has DDD Pt takes norco PRn for pain and doing ok.. Pt denies any saddle area paresthesia.. Pt has mild neuropathy symptoms HTN Pt has HTN pt ta kes irbesartan/hctz and her bp is stale. Pt denies any chest pain. pain Pt has chronic b ack and shoulder pain. Pt denies any sciatica or any loss of bladder control. Pt has DDD Pt takes norco PRn for pain and doing ok.. Pt denies any saddle area paresthesia.. Pt has mild neuropathy symptoms HLP Pt has HLP Pt ta kenasreen zocor Pt denies any myalgia DM Pt has borderlin e DM Pt takes metformin Pt denies any polyuria, polydipsia ,Pt has mild neuropathy symptoms oAB Pt has OAB. Pt h as urinary urgency and frequency. Pt takes oxybutynin and doing ok Pt denies any dry mouth or orthostasis. pain Pt has chronic b ack and shoulder pain. Pt denies any sciatica or any loss of bladder control. Pt has DDD Pt takes norco PRn for pain and doing ok.. Pt denies any saddle area paresthesia.. Pt has mild neuropathy symptoms GERD1 Pt has chronic G ERD Pt takes omeprazole and pepcid PRN and doing ok Pt denies any abd pain or nausea, vomiting, appetite loss, early satiety pain Pt has chronic b ack and shoulder pain. Pt denies any sciatica or any loss of bladder control. Pt has DDD Pt takes norco PRn for pain and doing ok.. Pt denies any saddle area paresthesia. mammo Pt denies any br east issue pt needs mammo DM Pt has DM. Pt ta kes metformin and her glucose is around 130s. Her A1c is 6.6 which is worse than last year, which was 5.7 last year. Pt denies any polyuria polydipsia. Pt denies any hypoglycemia.. She only takes metformin once per day. Pt states that if she takes BID that her glucose drops to 90s and she feels shaky. pain Pt has chronic b ack and shoulder pain. Pt denies any sciatica or any loss of bladder control. Pt has DDD Pt takes norco PRn for pain and doing ok.. Pt denies any saddle area paresthesia. HTN Pt has HTN. pt t akes irbesartan and hctz and bp stable. Pt needs refill HLP Pt has HLP Pt ta kes zocor. Pt denies any myalgia pain Pt has chronic b ack and shoulder pain. Pt denies any sciatica or any loss of bladder control. Pt has DDD Pt takes norco PRn for pain and doing ok.. Pt denies any saddle area paresthesia. GERD Pt has chronic G ERD. pt takes omeprazole and pepcid and is helping. Pt states that pepcid really helped her symptoms. pt denies any abd pain pain Pt has chronic b ack and shoulder pain. Pt denies any sciatica or any loss of bladder control. Pt has DDD Pt takes norco PRn for pain and doing ok.. Pt denies any saddle area paresthesia. GERD1 Pt has chronic G ERD Pt takes omeprazole and she has been having some breakout GERD. Pt has esophagitis COPD1 Pt has COPD Pt i s on advair and albuterol Pt has sleep apnea Pt uses cpap Pt sees pulmonary Pt still feels sob frequently. Pt had benign LDC recently pain Pt has chronic b ack and shoulder pain. Pt denies any sciatica or any loss of bladder control. Pt has DDD Pt takes norco PRn for pain and doing ok.. Pt denies any saddle area paresthesia. GERD1 Pt has chronic G ERD Pt denies any abd pain or nausea, vomiting Pt doing ok with omeprazole Pt failed pepcid. Pt needs omeprazole refill. 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 incontinence1 Pt has OAB and s ome mixed incontinence .pt denies any urinary symptoms. Pt needs diaper DME completed pain Pt has chronic b ack and shoulder pain. Pt denies any sciatica or any loss of bladder control. Pt has DDD Pt takes norco PRn for pain and doing ok.. Pt denies any saddle area paresthesia. sick Pt c/o acute ons et of sore throat, chest and sinus congestion, coughing without sob since 4 days ago. Pt denies any fever. Pt denies any sick contact Pt denies any dysphagia. Pt is fully vaccinated and boosted for COVID. Pt denies any GI symptoms. Pt also c/o myalgia. pain Pt has chronic i ncontinence .Pt uses underpad .Pt has mild stress and urge incontinence .Pt takes oxybutynin PRN and doing ok pain Pt has chronic b ack and shoulder pain. Pt denies any sciatica or any loss of bladder control. Pt has DDD Pt takes norco PRn for pain and doing ok.. Pt denies any saddle area paresthesia. pain Pt has chronic b ack and shoulder pain. Pt denies any sciatica or any loss of bladder control. Pt has DDD Pt takes norco PRn for pain and doing ok.. Pt denies any saddle area paresthesia. physical Pt needs annual physical Pt has multiple medical issue. Pt has mild insulin resistance. Pt takes metformin and she is doing well. Her glucose is around 100 .Pt denies any polyuria, polydipsia or neuropathy. Pt has HLP. Pt takes zocor pt denies any myalgia. Pt has chronic GERD Pt doing ok with omeprazole Pt failed pepcid Pt has HTN .Pt takes irbesartan and hctz and her bp is stable .Pt has genital herpes Pt takes acyclovir and she denies any outbreak Pt has chronic back pain Pt denies any loss of bowel or bladder control. Pt denies any saddle area paresthesia Pt denies any other complaints pain Pt has chronic b ack and shoulder pain. Pt denies any sciatica or any loss of bladder control. Pt denies any loss of bladder control. Pt has DDD Pt takes norco PRn for pain and doing ok.. Pt denies any saddle area paresthesia. OAB Pt has mild OAB. pt c/o urinary frequency and urgency. 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 Pt denies any fatigue or snoring pain Pt has chronic b ack and shoulder pain. Pt denies any sciatica or any loss of bladder control. Pt denies any loss of bladder control. Pt has DDD Pt takes norco PRn for pain and doing ok. GERD1 Pt has chronic G ERD Pt had benign EGD Pt denies any abd pain or GERD or nausea or vomiting Pt has daily GERD without omeprazole Pt failed pepcid pain Pt has chronic b ack and shoulder pain. Pt denies any sciatica or any loss of bladder control. Pt denies any loss of bladder control. Pt has DDD Pt takes norco PRn for pain and doing ok. HSV II Pt has HSV II Pt takes acyclovir daily. Pt still has outbreak around genital area 2-3 per year. Pt wants some acyclovir topical to use PRn, which worked well recently. Pt states that she noticed a small spot around vaginal area now with mild itching. HLP Pt has HLP Pt ta kes zocor and her lipid profile is ok. Pt denies any myalgia glucose1 Pt has borderlin e high glucose and borderline high A1c Pt takes metformin Pt denies any polyuria, polydipsia pain pain Pt has chronic b ack and shoulder pain. Pt denies any sciatica or any loss of bladder control. Pt denies any loss of bladder control. Pt has DDD Pt takes norco PRn for pain and doing ok. pain Pt has chronic b ack and shoulder pain. Pt denies any sciatica or any loss of bladder control. Pt denies any loss of bladder control. Pt has DDD Pt takes norco PRn for pain and doing ok. HLP Pt has HLP Pt ta kes zocor pt denies any myalgia. pain Pt has chronic b ack and shoulder pain. Pt denies any sciatica or any loss of bladder control. pt denies any loss of bladder control. Pt has DDD Pt takes norco PRn for pain and doing ok HTN Pt has HTN and m ild lower extremity dependent edema. Pt takes irbesartan and hctz and doing ok Pt denies any LE edema. Her bp is around 130/60 at home . DM Pt has DM. Pt ta kes metformin and her glucose is around 120s Pt denies any polyuria, polydipsia. Pt just had cataract surgery. Pt denies any polyuria, polydipsia. HLP Pt has HLP Pt ta kes zocor Pt denies any myalgia GERD1 Pt has chronic G ERD Pt failed pepcid. Pt doing ok with omeprazole. Pt had benign EGD. Pt has daily GERD without omeprazole. Pt denies any abd pain pain Pt has chronic b ack and shoulder pain. Pt denies any sciatica or any loss of bladder control. pt denies any loss of bladder control. Pt has DDD Pt takes norco PRn for pain and doing ok HSVII Pt has HSV II Pt takes acyclovir daily. Pt still has outbreak around genital area 2-3 per year. Pt wants some acyclovir topical to use PRn, which worked well recently. Pt denies any active breakout HTN Pt has HTN Pt ta kes irbesartan and her bp is ok at home Pt denies any chest pain abd Pt has mild gERD and she takes omeprazole daily ,pt failed pepcid. Pt states that her abd pain resolved after stop drinking coffee empty stomach in the morning Pt had benign egd DM Pt is diabetic. Pt takes metformin only Pt states that her glucose is around 120s .Pt denies any polyuria, polydipsia. OAB Pt has mild OAB Pt only takes oxybutynin PRN and doing ok Pt has cataract but no glaucoma .Pt will have cataract surgery soon. pain Pt has chronic b ack and shoulder pain. Pt denies any sciatica or any loss of bladder control. pt denies any loss of bladder control. Pt has DDD Pt takes norco PRn for pain and doing ok back pain1 Pt has chronic b ack and shoulder pain. Pt denies any sciatica or any loss of bladder control. pt denies any loss of bladder control. Pt has DDD Pt takes norco PRn for pain and doing ok osteopenia1 Pt has osteopeni a pt has low d. Pt takes calcium and D and is working on weight bearing exercise gassy1 Pt feels very ga ssy lately for 1-2 months. Pt feels bloated in the morning and rest of the day. Pt denies any abd pain Pt denies any constipation or diarrhea Pt denies any early satiety. Pt denies any relationship to any food. or activity pain Pt has chronic b ack and shoulder pain. Pt denies any sciatica or any loss of bladder control. pt denies any loss of bladder control. Pt has DDD Pt takes norco PRn for pain and doing ok HSV Pt has HSV II. P t takes acyclovir daily and she denies any outbreak. Pt wants some acyclovir topical as well. pt states that sometimes she has pimple like spots around pubic area .Pt denies any pain. pain Pt has chronic b ack and shoulder pain. Pt denies any sciatica or any loss of bladder control. pt denies any loss of bladder control. Pt has DDD Pt takes norco PRn for pain. headache1 Pt c/o acute ons et of sharp intermittent left side headache for 2 weeks Pt states that headache comes and goes. Pt denies any head injury or waking up at night with headache. Pt denies any nausea or photophobia. Pt denies any acute headache Pt states that headache is 5/10. 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 Pt uses cpap with oxygen. Pt states that his cpap machine is broken for 4 weeks and she tried to call P and also her sleep MD but everybody is giving her the run around Pt is very frustrated . GERD1 Pt has GERD Pt t akes omeprazole PRn and doing ok Pt denies any abd pain. Pt states that she needs omeprazole refilled. pain Pt has chronic b ack and shoulder pain. Pt denies any sciatica or any loss of bladder control. pt denies any loss of bladder control. Pt has ddd on lumbar xray. Pt doing ok with norco HNT Pt takes irbesar mcgowan and hctz pt denies any swelling Her bp is stable at home GERD1 Pt has GERD Pt h ad benign EGD .pt states that omeprazole 40 mg bothers his stomach Pt wants to go back down to 20 mg pain Pt has chronic b ack and shoulder pain. Pt denies any sciatica or any loss of bladder control. pt denies any loss of bladder control. Pt has ddd on lumbar xray. Pt doing ok with norco chronic pain1 Pt has chronic b ack and shoulder pain. Pt denies any sciatica or any loss of bladder control. pt denies any loss of bladder control. Pt has ddd on lumbar xray. Pt states that norco is not helping and she wants higher dose. GERD1 Pt has chronic G ERd. Pt states that her symptoms are better with omeprazole 40 mg daily. Pt denies any abd pain genital herpes1 Pt takes acyclov ir daily and she denies any outbreak HLP Pt has HLP Pt ta kes zocor. Pt denies any myalgia pain1 Pt has chronic l eft shoulder and low back pain Pt has mild sciatica and leg numbness ,Pt failed neurontin .Pt takes norco PRN for pian and doing ok Pt denies any loss of bladder control DM Pt has borderlin e DM Pt is on metformin only Pt denies any polyuria polydipsia pt denies any hypoglycemia. Pt does have mild neuropathy abd pain1 Pt denies any ab d pain Pt does have chronic GERD .Pt does have esophagitis. Pt sometimes has to take omeprazole BID. Pt denies any weight loss or early satiety pain1 Pt has chronic l ow back pain Pt has mild sciatica and leg numbness. Pt denies any loss of bladder control, Pt denies any neck pain ,Pt also has shoulder pain. Pt takes norco PRN for pain, pt failed NSAID and ultram osteopenia1 Pt has osteopeni a Pt takes calcium and Vitamin D and she feels that her bone is stronger. Pt does not have any allergic reaction to vitamin D HTN Pt takes irbesar mcgowan and hCTZ and her bp is ok. p OAB Pt has OAB Pt ta kes ditropan and doing ok,, Pt denies any UTi symptoms asthma1 Pt has asthma br onchitis Pt sees pulmonary Pt uses advair daily Pt rarely uses albuterol. Pt also has sleep apnea, Pt uses cpap nightly pain1 Pt has chronic l ow back and shoulder pain PT has arthritis. Pt has not done x ray yet Pt denies any sciatica or any loss of bladder control anxiety1 Pt has mild anxi ety and depression, Pt denies any suicidal or homicidal thought. Pt denies any crying spells GERD1 Pt has chronic G ERd, Pt has intermittent diffuse abdominal pain, PT had EGD done which showed nonerosive esophagitis and gastritis Pt failed pepcid. Pt denies any hematemesis or blood in stool anxiety1 Pt has anxiety a nd depression Pt took cymbalta for only one week but she feels slightly dizzy so she stopped it . Pt denies any suicidal or homicidal thought. Pt is still grieving for her sister pain1 Pt has chronic l ow back pain Pt has mild sciatica and leg numbness. Pt denies any loss of bladder control, Pt denies any neck pain ,Pt also has shoulder pain. Pt takes norco PRN for pain, pt failed NSAID and ultram abd pain1 Pt c/o diffuse a bdominal pain on and off chronically and she is very vague. Pt states that she does not have GERD and she is off omeprazole. Pt state that her stomach is upset sometimes. her sister recently of stomach CA anxiety1 Pt has chronic a nxiety Pt recently feels depressed Pt denies any suicidal thought or homicidal thought. Pt denies any crying spells. Her sister recently pain1 Pt has chronic l ow back and shoulder pain Pt has mild sciatica and leg numbness. Pt takes norco PRN for pain .Pt failed NSAID and ultram. pT denies any loss of bladder control osteopenia1 Pt has osteopeni a and low D. Pt has been off fosamax. Pt denies any fx HSV II Pt has HSV II. P t tales acyclovir. Pt denies any outbreak. Pt does not have HIV DM Pt has DM Pt ladonna es metformin only ,Pt stopped taking glipizide. Pt states that it causes her BG to drop below 100s. Pt denies any neuropathy pain Pt has chronic l ow back and shoulder pain Pt has mild sciatica and leg numbness. Pt takes norco PRN for pain .Pt failed NSAID and ultram. pT denies any loss of bladder control HLP Pt has HLP Pt ta kes zocor Pt denies any myalgia. her lipid profile is ok HTN Pt has HTN Pt ta kes HCTZ and irbesartan and her bp is stable pain1 Pt has chronic l ow back and shoulder pain Pt has mild sciatica and leg numbness. Pt takes norco PRN for pain .Pt failed NSAID and ultram. pT denies any loss of bladder control DM Pt takes metform in and glipizide. her glucose is around 120s .Pt states that if she takes full 5 mg glipizide that her glucose drops very quickly to 60s so she only takes 0.5 mg glipizide. Pt denies any polyuria, polydipsia. Pt denies any hypoglycemia HSVII Pt has HSV II Pt takes acyclovir .Pt does not have other STD. Pt denies any outbreak. osteopenia1 Pt has osteopeni a Pt is off fosamax. Pt has low D. Pt denies any fx OAB Pt has OAB. Pt d oing ok with ditropan. Pt denies any UTI symptoms toenail fungus Pt has toenail f ungus Pt takes lamisil once every two weeks ?? Pt states that toenail fungus is ok now chronic pain Pt has chronic n kristopher with radiatoin to left upper shoulder HSV II Pt has genital h erpes Pt was tested positive ,Pt c/o acute flare up during last week Pt takes valtrex PRn which works ok osteopenia1 Pt has osteopeni a on bone density .Pt stopped fosamax last month ,Pt has been on fosamax for close to 10 years? Pt takes calcium and d. Pt denies any fx COPD1 Pt has COPD/emph ysema. Pt is seeing pulmonary Pt is on spiriva and albuterol and she uses albuterol 1-2 per week Pt denies any hemoptysis, worsening sob or cough. Chest CT showed NSIP fatty liver Pt has fatty giuseppe er Pt is obese. Pt denies any abd pain or jaundice. Pt has chronic GERD Pt failed zantac and pepcid pt has daily GERD without omeprazole HTN Pt has HTN Pt ta kes losartan and hctz but her bp is still high Pt denies any headache osteoporosis1 P has been takin g fosamax for 10 years. Pt has not done bone density yet. Pt takes calcium only since she is allergic to vitamin D shoulder pain1 Pt c/o severe le ft upper shoulder and left upper back pain for one week Pt states that she has some sob for unknown reason Pt is very uncomfortable currently Pt denies any chest pain Pt went to ER and had left shoulder xr ay done which showed arthritis Pt was told she has trapeziums muscle spasm. Pt c/o swelling around left supraclavicular area . Pt has left shoulder pain also Pt denies any injury Physical Pt needs annual physical, Pt has chronic low back pain Pt has history of compression Fx L 5. Pt was taking norco for pain but her new MD stopped it. Pt been to pain management and failed injections. pt has sciatica and leg numbness. Pt has osteoporosis. Pt has been taking fosamax for 8-9 years. Pt has DM pt takes metformin and glipizide. Her BG is around 130s at home. Pt denies any polyuria, polydipsia Pt denies any neuropathy. Pt has OAB Pt takes ditropan and doing ok Pt denies any dysuria Pt denies any polyuria, polydipsia. Pt has HTn. Pt takes losartan hCTZ and her BP is ok. Pt has HLP Pt takes zocor Pt denies any myalgia Pt also has chronic GERD. Pt takes omeprazole for multiple years. Pt denies any abd pain. Pt also has chronic anxiety Pt denies any depression or any suicidal thought, Pt denies any crying spells Pt used to take xanax. Pt has not had xanax for several months. Instructions Date Instruction Additional Infor tammy No Information Assessments Type Assessment Date assessment Chronic pain syndrome 5 assessment Overactive bladder Mental Status Date Cognitive Assessment Orientation - [place] ed to time, place, person, situation.
--- OUTSIDE RECORDS SUMMARY | 2024-12-27 11:09 | XMS_ITS | Referral Summary ---
Author Organization [facility] Address [address] [place] [address] Care Team Providers [employer] Consultant Name Role Phone Danelle Olsen MD Primary Care Provider [phone] Source Comments [facility],non-owned Affiliates and Associated Physician Practices is amultiple site organization consisting of ambulatory clinics and hospital sitesin [place], [place], [place]. This disclosure is being madepursuant to the Care Everywhere program and may not contain all information available regarding this patient. Last updated 18.[facility] Allergies No known active allergies Social History [...] 08/06/2024 10:05 AM CDT Plan of Treatment Not on file Care Teams [employer] Consultant Relationship Specialty Start Date End Date Danelle Olsen MD PCP - General 08/16/19
--- OUTSIDE RECORDS SUMMARY | 2024-12-27 11:09 | XMS_ITS | Clinical Summary ---
Author Organization [facility] Address [address] [place] [address] Care Team Providers Care Clinical Sociologist Name Role Phone Jin Dobson MD Primary Care Provider [phone] Allergies Active Allergy Reactions Criticality Noted Date Comments Vit D3-Vit N-Jxkbxqriv-Ewpm Itching Low 01/24/2018 PATIENT STATES THAT SHE [...] Morbid obesity with BMI of 40.0-44.9, adult 0 07/2018 Hypercalcemia 04/13/2014 Overview (03/03/2017): HYPERCALCEMIA Osteoporosis 04/13/2014 Overview (03/03/2017): OSTEOPOROSIS NOS Abnormal electrocardiography 07/23/2008 Overview (03/03/2017): ABNORM ELECTROCARDIOGRAM Adiposity 07/23/2008 Overview (03/03/2017): OBESITY NOS Shortness of breath 07/23/2008 Overview (03/04/2017): SHORTNESS OF BREATH Chest pain 07/23/2008 Overview (03/04/2017): CHEST PAIN NOS Preoperative state 07/23/2008 Overview (03/04/2017): PREOP CARDIOVSCLR EXAM Surgical History Surgery Date Site/Laterality Comments HYSTERECTOMY Hysterectomy BREAST BIOPSY Left Breast Biopsy OTHER SURGICAL HISTORY L rotator cuff surgery Medical History Medical History Date Comments Hx Other Medical COPD: Asthma Hx Other Medical Back Pain Hx Other Medical Lumbar Fx? Osteoporosis Osteoporosis Hx Other Medical Morbid Obesity Arthritis Arthritis Chronic obstructive pulmonary disease (HCC) COPD Hyperlipidemia Diabetes mellitus (HCC) Anxiety and depression Sleep apnea Family History Medical History Relation Name Comments Depression Brother 2 Depression; Cau se of : Depression COPD Father COPD; Cause of : COPD Heart attack Mother Myocardial Infa rction; Cause of : Myocardial Infarction Osteoporosis Sister 2 Osteoporosis; Relation Name Status Comments Brother 1 Brother 2 Father (Age 74) Mother (Age 64) Sister 1 Alive Sister 2 Social History Tobacco Use Types Packs/Day Years Used Date Smoking Tobacco: Former Cigarettes Smokeless Tobacco: Never Tobacco Cessation:Counseling Given: Yes Comments:1-2 cigarettes daily Alcohol Use Standard Drinks/Week Comments No 0 (1 standard drink = 0.6 oz pur e alcohol) Comments Unknown Sex and Gender Information Value Date Recorded Sex Assigned at Not on file Legal Sex Female 3:43 AM GREEN HIDE INSPECTOR Gender Identity Not on file Sexual Orientation Not on file Obstetrics History Last Filed Vital Signs Vital Sign Reading Time Taken Comments Blood Pressure 104/63 10/14/2023 9:22 AM GREEN HIDE INSPECTOR Pulse 60 10/14/2023 9:22 AM GREEN HIDE INSPECTOR Temperature 36.4 ??C (97.6 ??F) 10/14/2023 9:22 AM CS T Respiratory Rate 18 10/14/2023 9:22 AM GREEN HIDE INSPECTOR Oxygen Saturation 92% 10/14/2023 9:22 AM GREEN HIDE INSPECTOR Inhaled Oxygen Concentration - - Weight 98.4 kg (217 lb) 10/14/2023 9:22 AM GREEN HIDE INSPECTOR Height 152.4 cm (5') 10/14/2023 9:22 AM GREEN HIDE INSPECTOR Body Mass Index 42.38 10/14/2023 9:22 AM GREEN HIDE INSPECTOR Plan of Treatment Health Maintenance Due Date Last Done Comments Colon Cancer Screening-Colonoscopy 1954 Depression Screening 1954 Fall Risk Assessment 1954 Hepatitis C Screening 1954 Osteoporosis Screening-Bone Density Scan 1954 DTaP/Tdap/Td Vaccine (1 - Tdap) 1965 Hepatitis B Screening 1972 Well Visit 65+ 2019 Pneumococcal vaccine 65+ (2 of 2 - PPSV23 or PCV20) 11/13/2019 09/18/2019 Breast Cancer Screening-Mammogram 01/30/2020 019 Covid-19 Vaccine (4 - 2023-2 5 season) 2024 10/27/2021, 02/21/2021, 01/29/2021 Influenza Vaccine (#1) 2024 3, 09/13/2022, 09/23/2020, Additional history exists Zoster Vaccine Completed 06/26/2022, 04/12/2022 Insurance MEDICARE [employer] [facility] Address: [address] [address] [place] [address] [employer] IDPA Care Teams Clinical Sociologist Relationship Specialty Start Date End Date Jin Dobson MD [facility] [place] [address] PCP - General Family Medicine 01/05/24
--- OUTSIDE RECORDS SUMMARY | 2024-12-27 11:09 | XMS_ITS | Clinical Summary ---
Author Organization [facility] Address [address] [place] [address] Phone Care Team Providers Care Jig And Fixture Builder Apprentice Name Role Phone Unavailable Primary Care Provider Unavailabl e Allergies No known active allergies Medications HYDROcodone-acet aminophen (NORCO) 5-325 MG Tablet Take 1 Tab by mouth every 6 hours as needed for Pain. 20 Tab 02/01/2018 Active Social History Tobacco Use Types Packs/Day Years Used Date Smoking Tobacco: Some Days Smokeless Tobacco: Never Alcohol Use Standard Drinks/Week Comments No 0 (1 standard drink = 0.6 oz pur e alcohol) Comments No Sex and Gender Information Value Date Recorded Sex Assigned at Not on file Legal Sex Female 9:58 PM CDT Gender Identity Not on file Sexual Orientation Not on file Last Filed Vital Signs Vital Sign Reading Time Taken Comments Blood Pressure 107/59 02/01/2018 2:44 PM DATA ENTRY MANAGER Pulse 66 02/01/2018 12:24 PM DATA ENTRY MANAGER Temperature 36.5 ??C (97.7 ??F) 02/01/2018 12:[address] Respiratory Rate 18 02/01/2018 2:44 PM DATA ENTRY MANAGER Oxygen Saturation 93% 02/01/2018 12:24 PM DATA ENTRY MANAGER Inhaled Oxygen Concentration - - Weight 104.3 kg (230 lb) 02/01/2018 12:24 PM DATA ENTRY MANAGER Height 157.5 cm (5' 2 ) 02/01/2018 12:24 PM DATA ENTRY MANAGER Body Mass Index 42.07 02/01/2018 12:24 PM DATA ENTRY MANAGER Plan of Treatment Health Maintenance Due Date Last Done Comments DEXA Bone Density 1954 Hepatitis C Virus (HCV) Screening 1954 TdaP Immunization 1954 Colonoscopy 1999 Colorectal Cancer Screening 1999 Cologuard 2004 Immunochemical Fecal Occult Blood 2004 Mammogram 2004 Pneumococcal Immunization (5 0+ years) (1 of 1 - PCV) 2004 Zoster Immunization (1 of 2) 2004 Influenza Immunization (#1) 07/29/2024/06/2017, 09/12/2016, 09/01/2015 SARS-COV-2 Immunization ( season) 2024 10/27/2021, 02/21/2021, 01/29/2021 Respiratory Syncytial Virus (RSV) Immunization (Adult) (1 - 1-dose 75+ series) 2029 Hepatitis B Immunization Aged Out No longer eligible based on patient's age to complete this topic Meningococcal Immunization (ACWY) Aged Out No longer eligible b ased on patient's age to complete this topic Rotavirus Immunization Aged Out No lo nger eligible based on patient's age to complete this topic Insurance [place]ICARE [place]
--- OUTSIDE RECORDS SUMMARY | 2024-12-27 11:09 | XMS_ITS | Clinical Summary ---
Author Organization [facility] Address [address] [place] [address] Care Team Providers Care Guide Dog Mobility Instructor Name Role Phone Lewis Hull MD Primary Care Provider [phone] Allergies Active Allergy Reactions Criticality Noted Date Comments Cholecalciferol (Vitamin D3) Rash Low 018 Medications alendronate (FOSAMAX) 70 mg tablet TAKE 1 TABLET BY MOUTH EVERY WEEK AT LEAST 30 MINUTES BEFORE FOOD, BEVERAGE, OR OTHER DRUG IN THE AM 2 07/10/20 18 Active ALPRAZolam (XANAX) 0.25 mg tablet TAKE 1 TABLET BY MOUTH TWICE A DAY NEEDED 0 07/05/20 18 Active ACCU-CHEK KAYLIE PLUS TEST STRP Strip TEST BLOOD SUGAR ONCE DAILY 3 08/30/20 18 Active fenofibrate (LOFIBRA) 160 mg Tablet TAKE 1 TABLET BY MOUTH EVERY DAY 2 08/23/20 18 Active FLUCELVAX QUAD 3356-1801, PF, 60 mcg (15 mcg x 4)/0.5 mL Syringe syringe TO BE ADMINISTERED BY PHARMACIST FOR IMMUNIZATION 0 09/12/20 18 Active losartan (COZAAR) 25 mg tablet TAKE 1 TABLET BY MOUTH EVERY DAY (DISCONTINUE LISINOPRIL). 5 09/22/20 18 Active metFORMIN (GLUCOPHAGE) 850 mg tablet TAKE 1 TABLET BY MOUTH 2 TIMES EVERY DAY WITH MORNING AND EVENING MEALS 3 08/13/20 18 Active omeprazole (PriLOSEC) 20 mg Capsule, Delayed Release(E.C.) TAKE ONE CAPSULE BY MOUTH EVERY DAY 3 07/19/20 18 Active oxybutynin chloride (DITROPAN) 5 mg tablet Take 5 mg by mouth daily. Active glipiZIDE (GLUCOTROL) 5 mg tablet Take 5 mg by mouth daily with breakfast. Active simvastatin (ZOCOR) 40 mg tablet Take 40 mg by mouth late in the day. Active aspirin (NATASHA CHEWABLE) 81 mg Tablet, Chewable Take 81 mg by mouth daily. Active omega-3 acid ethyl esters (OMACOR,LOVAZA) 1 gram Capsule Take 4 Grams by mouth daily. Active albuterol sulfate (VOSPIRE ER) 8 mg Extended Release 12 hour tablet Take 8 mg by mouth every 12 hours. Active tiotropium (SPIRIVA) 18 mcg capsule Take 18 mcg by inhalation daily. Active ipratropium bromide (ATROVENT) 0.03 % Adair, Non-Aerosol Administer 2 Sprays in each nostril 2 times daily. Active hydroCHLOROthiazide 25 mg tablet TAKE 1 TABLET BY MOUTH EVERY DAY 1 04/09/20 19 Active ibuprofen (MOTRIN) 800 mg tablet Take 1 Tablet (800 mg) by mouth every 6 hours as needed for Pain, Severe Take with food. 60 Tablet 1 06/06/20 19 Active ascorbic acid, vitamin C, (VITAMIN C) 500 mg tablet Take 500 mg by mouth 2 times daily. Active fenofibrate nanocrystallized (TRICOR) 145 mg tablet TAKE 1 TABLET BY MOUTH EVERY DAY WITH FOOD 0 07/17/20 19 Active HYDROcodone-acetamin ophen (NORCO) 5-325 mg tablet Take 1 Tablet by mouth every 8 hours as needed for Pain, Moderate. Active Active Problems Problem Noted Date Diagnosed Date Hypersensitivity 09/20/2019 Benign mammary dysplasia of left breast 08/21/20 19 Tobacco dependence 08/02/2019 Macromastia 10/17/2018 Chronic left shoulder pain 10/17/2018 Mid back pain 10/17/2018 Abnormal ultrasound of breast 10/17/2018 Morbid obesity with body mass index of 40.0-49.9 09/25/2018 Left breast lump 09/25/2018 Mastodynia 09/25/2018 Acute mastitis 09/25/2018 Social History Tobacco Use Types Packs/Day Years Used Date Smoking Tobacco: Former Cigarettes 0.3 6 0 06/01/2013 - 06/01/2019 Smokeless Tobacco: Never Alcohol Use Standard Drinks/Week Comments No 0 (1 standard drink = 0.6 oz pur e alcohol) Comments No Sex and Gender Information Value Date Recorded Sex Assigned at Not on file Legal 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 Gender Identity Not on file Sexual Orientation Not on file Last Filed Vital Signs Vital Sign Reading Time Taken Comments Blood Pressure 142/75 09/20/2019 8:41 AM CDT Pulse 66 09/20/2019 8:41 AM CDT Temperature 36.7 ??C (98.1 ??F) 09/20/2019 8:41 AM CD T Respiratory Rate - - Oxygen Saturation 96% 09/20/2019 8:41 AM CDT Inhaled Oxygen Concentration - - Weight 106 kg (233 lb 11.2 oz) 09/20/2019 8:41 A M CDT Height 154.9 cm (5' 1 ) 09/20/2019 8:41 AM CDT Body Mass Index 44.16 09/20/2019 8:41 AM CDT Plan of Treatment Health Maintenance Due Date Last Done Comments Pre-Diabetes and Diabetes Screening 1954 DTAP/TDAP/TD VACCINES (1 - Tdap) 1973 COLORECTAL SCREENING 1999 Colorectal Cancer Screening 1999 FIT-DNA Q 3 years 1999 FIT/FOBT Q 1 year 1999 Flex Sig/CT Colonography Q 5 years 1999 PNEUMOCOCCAL VACCINE 65+ YEA RS (1 of 1 - PCV) 2004 ZOSTER VACCINE (1 of 2) 2004 RSV VACCINE (60+ or ) (1 - Risk 60-74 years 1-dose series) 2014 OSTEOPOROSIS SCREENING 2019 BREAST CANCER SCREENING 01/30/2020 01/30/20 19, 01/23/2018, 03/09/2017, Additional history exists INFLUENZA VACCINE (#1) 2024 Procedures Procedure Name Priority Date/Time Associated Diagnosis Comments MAMMO SCREENING BILAT Routine 01/29/2019 from Last 3 Months or Most Recently Relevant to Health Maintenance Results * MAMMO SCREENING BILAT (01/29/2019) Anatomical Region Laterality Modality Breast Bilateral Other us Abstract Provider MAMMO ORDERABLES Final Result from Last 3 Months or Most Recently Relevant to Health Maintenance Insurance MEDICARE PART A AND B Care Teams Guide Dog Mobility Instructor Relationship Specialty Start Date End Date Lewis Hull MD PCP - General Emergency Medicine 05/15/19
[2024-12-27] MEDS: AZITHROMYCIN 500 MG/NS 250 ML 500 MG/250 ML BAG 250 MG IVPB (12:27)
[2024-12-27 13:55] LABS: RSV RNA, RT-PCR Negative (Negative)
== END 2024-12-27 14:22 | disposition home or self-care (01) ==
PROVIDERS: Emergency Medicine; Emergency Provider Physician Assistant; PCP Nurse Practitioner Family
DX: J44.1 Chronic obstructive pulmonary disease with (acute) exacerbation (principal); J18.9 Pneumonia, unspecified organism; Z20.822 Contact with and (suspected) exposure to COVID-19; I10 Essential (primary) hypertension; E78.5 Hyperlipidemia, unspecified; E11.9 Type 2 diabetes mellitus without complications; J84.9 Interstitial pulmonary disease, unspecified; M81.0 Age-related osteoporosis without current pathological fracture; M19.90 Unspecified osteoarthritis, unspecified site; Z86.0100 Personal history of colon polyps, unspecified; G47.30 Sleep apnea, unspecified; Z99.81 Dependence on supplemental oxygen; Z87.891 Personal history of nicotine dependence; Z90.710 Acquired absence of both cervix and uterus; R90.82 White matter disease, unspecified; R00.1 Bradycardia, unspecified; R94.31 Abnormal electrocardiogram [ECG] [EKG]; Z79.84 Long term (current) use of oral hypoglycemic drugs; Z79.899 Other long term (current) drug therapy
CPT/HCPCS: 36415; 70450; 71045; 80053; 83880; 84484; 85025; 85610; 85730; 87634; 87636; 93005; 94640; 96365; 96367; 96375; 99284; A9270; J0456; J0696; J1200; J2765; J2919

== ENCOUNTER 2025-01-24 08:52 | Outpatient (CLI) | payer MEDICARE, MEDICAID, SELFPAY | END 2025-01-24 08:53 | disposition home or self-care (01) | PROVIDERS: PCP Nurse Practitioner Family; Visit Provider Emergency Medicine | DX: Z12.31 Encounter for screening mammogram for malignant neoplasm of breast (principal) | CPT/HCPCS: 77063; 77067 ==

== ENCOUNTER 2025-07-13 06:42 | Outpatient (CLI) | payer MEDICARE, SELFPAY ==
--- OUTSIDE RECORDS SUMMARY | 2025-07-13 06:46 | XMS_ITS | Clinical Summary ---
Author Organization [facility] Address [address] [place] [address] Phone Care Team Providers Care Catcher Filter Tip Name Role Phone Unavailable Primary Care Provider [...] Comments Blood Pressure 107/59 02/01/2018 2:44 PM LAB ENGINEER Pulse 66 02/01/2018 12:24 PM LAB ENGINEER Temperature 36.5 C (97.7 F) 02/01/2018 12:24 PM LAB ENGINEER Respiratory Rate 18 02/01/2018 2:44 PM LAB ENGINEER Oxygen Saturation 93% 02/01/2018 12:24 PM LAB ENGINEER Inhaled Oxygen Concentration - - Weight 104.3 kg (230 lb) 02/01/2018 12:24 PM LAB ENGINEER Height 157.5 cm (5' 2) 02/01/2018 12:24 PM LAB ENGINEER Body Mass Index 42.07 02/01/2018 12:24 PM LAB ENGINEER Plan of Treatment Health Maintenance Due Date Last Done Comments Hepatitis C Virus (HCV) Screening 1954 TdaP Immunization 1954 Cologuard 1999 Colonoscopy 1999 Colorectal Cancer Screening 1999 Immunochemical Fecal Occult Blood 1999 Pneumococcal Immunization (5 0+ years) (1 of 1 - PCV) 2004 Zoster Immunization (1 of 2) 2004 SARS-COV-2 Immunization (4 - season) 2024 10/27/2021, 02/21/2021, 01/29/2021 Influenza Immunization (#1) 07/29/202506/2017, 09/12/2016, 09/01/2015 Respiratory Syncytial Virus (RSV) Immunization (Adult) (1 - 1-dose 75+ series) 2029 Hepatitis B Immunization Aged Out No longer eligible based on patient's age to complete this topic Human Papillomavirus (HPV) Immunization Aged Out No longer eligible b ased on patient's age to complete this topic Meningococcal Immunization (ACWY) Aged Out No longer eligible b ased on patient's age to complete this topic Rotavirus Immunization Aged Out No lo nger eligible based on patient's age to complete this topic Insurance [place]
--- OUTSIDE RECORDS SUMMARY | 2025-07-13 06:46 | XMS_ITS | Clinical Summary ---
Author Organization [facility] Address [address] [place] [address] Care Team Providers Care Vulcanized Fiber Unit Operator Name Role Phone Unavailable Primary Care Provider [...] 1 - Tdap) 1973 Mammogram Screening 1994 Pneumococcal Vaccine: 50+ Ye ars (1 of 1 - PCV) 2004 Zoster Vaccines (1 of 2) 2004 Dexa Scan (General) 2019 COVID-19 Vaccine (2023-2 5 season) 2024 RSV Immunization or 60+ Years (1 [...]
--- OUTSIDE RECORDS SUMMARY | 2025-07-13 06:46 | XMS_ITS | Clinical Summary ---
Author Organization [facility] Address [address] [place] [address] Care Team Providers Care Theology Professor Name Role Phone Lewis Hull MD Primary Care Provider [phone] Allergies Active Allergy Reactions Criticality Noted Date [...] DAY 2 08/23/20 18 Active FLUCELVAX QUAD [id number], PF, 60 mcg (15 mcg x 4)/0.5 [...] daily. 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 Gender Identity Not on file Sexual Orientation Not on file Last Filed Vital Signs Vital Sign Reading Time Taken Comments Blood Pressure 142/75 09/20/2019 8:41 AM CDT Pulse 66 09/20/2019 8:41 AM CDT Temperature 36.7 C (98.1 F) 09/20/2019 8:41 AM CDT Respiratory Rate - - Oxygen Saturation 96% 09/20/2019 8:41 AM CDT Inhaled Oxygen Concentration - - Weight 106 kg (233 lb 11.2 oz) 09/20/2019 8:41 A M CDT Height 154.9 cm (5' 1) 09/20/2019 8:41 AM CDT Body Mass Index 44.16 09/20/2019 8:41 AM CDT Plan of Treatment Health Maintenance Due Date Last Done Comments Pre-Diabetes and Diabetes Screening 1954 DTAP/TDAP/TD VACCINES (1 - Tdap) 1973 COLORECTAL SCREENING 1999 Colorectal Cancer Screening 1999 FIT-DNA Q 3 years 1999 FIT/FOBT Q 1 year 1999 Flex Sig/CT Colonography Q 5 years 1999 PNEUMOCOCCAL VACCINE 50+ YEA RS (1 of 1 - PCV) 2004 ZOSTER VACCINE (1 of 2) 2004 RSV VACCINE (60+ or ) (1 - Risk 60-74 years 1-dose series) 2014 OSTEOPOROSIS SCREENING 2019 BREAST CANCER SCREENING 01/30/2020 01/30/20 19, 01/23/2018, 03/09/2017, Additional history exists INFLUENZA VACCINE (#1) 2025 Procedures Procedure Name Priority Date/Time Associated Diagnosis Comments MAMMO SCREENING BILAT Routine 01/29/2019 from Last 3 Months or Most Recently Relevant to Health Maintenance Results * MAMMO SCREENING BILAT (01/29/2019) Anatomical Region Laterality Modality Breast Bilateral Mammography us Abstract Provider MAMMO ORDERABLES Final Result from Last 3 Months or Most Recently Relevant to Health Maintenance Insurance MEDICARE PART A AND B Care Teams Theology Professor Relationship Specialty Start Date End Date Lewis Hull MD PCP - General Emergency Medicine 05/15/19
--- OUTSIDE RECORDS SUMMARY | 2025-07-13 06:46 | XMS_ITS | Encounter Summary ---
Author Organization [facility] Address 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
[2025-07-13 08:14] LABS: Cholesterol 129 mg/dL (0-200); HDL Direct 43 mg/dL; Triglycerides 76 mg/dL (<150)
== END 2025-07-13 06:43 | disposition home or self-care (01) ==
LOC: ANHLAB 06:44
PROVIDERS: PCP Emergency Medicine; Visit Provider Internal Medicine Cardiovascular Disease
DX: E78.5 Hyperlipidemia, unspecified (principal)
CPT/HCPCS: 36415; 80061

== ENCOUNTER 2025-10-14 13:25 | Outpatient (CLI) | payer MEDICARE, MEDICAID, SELFPAY ==
--- NOTE | ~2025-10-14 | CT_ITS ---
EXAMINATION:CT diagnostic chest wo con DATE: 10/14/2025 14:01 INDICATION: COPD TECHNIQUE: Computed tomography (CT) of the chest was performed without intravenous contrast. The dose-length product (DLP) was 434.20 mGy-cm. COMPARISON: October 17, 2024 FINDINGS: Moderately severe diffuse reticulation, pleural thickening, scattered thin parenchymal band formation in air cysts formation similar to the previous study. No gross interval progression. No acute abnormality seen. No suspicious nodules or masses. Heart and great vessels stable. Mildly enlarged main pulmonary artery measuring 3.9 cm. No significant pericardial effusion or bulky lymphadenopathy. Coronary artery calcifications noted. Diffuse degenerative changes throughout the bones. No acute process seen in the visualized portions of the upper abdomen or extrathoracic soft tissues. IMPRESSION: 1. 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 Minimal progression since the 2023 exam. 2. No gross acute process or evidence of malignancy identified. Reviewed, dictated and finalized at location A. NEERING SUPPLIES SALES IMPRESSION: 1. Moderately severe diffuse interstitial lung disease consistent with UIP or f ibrosing form of an XIP. Minimal progression since the 2023 exam. 2. No gross acute process or evidence of malignancy identified.
== END 2025-10-14 13:26 | disposition home or self-care (01) ==
PROVIDERS: PCP Emergency Medicine; Visit Provider Nurse Practitioner Family
DX: J44.9 Chronic obstructive pulmonary disease, unspecified (principal); J84.9 Interstitial pulmonary disease, unspecified; Z72.0 Tobacco use
CPT/HCPCS: 71250

== ENCOUNTER 2025-10-16 08:55 | Outpatient (CLI) | payer MEDICARE, MEDICAID, SELFPAY ==
--- OUTSIDE RECORDS SUMMARY | 2025-10-16 11:12 | XMS_ITS | Encounter Summary ---
Author Organization [facility] Address 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
--- OUTSIDE RECORDS SUMMARY | 2025-10-16 11:13 | XMS_ITS | Clinical Summary ---
Author Organization [facility] Address [address] [place] [address] Care Team Providers Care Md Physician Dermatologist Name Role Phone Jin Dobson MD Primary Care Provider [phone] Allergies Active Allergy Reactions Criticality Noted Date Comments Vit D3-Vit C-Clcirbpcq-Yngo Itching Low 01/24/2018 PATIENT STATES THAT SHE [...] Date Diagnosed Date ILD (interstitial lung disease) 10/14/2023 Morbid obesity with BMI of 40.0-44.9, adult 02/0 07/2018 Hypercalcemia 04/13/2014 Overview (03/03/2017): HYPERCALCEMIA Osteoporosis [...] Obesity Arthritis Arthritis Chronic obstructive pulmonary disease COPD Hyperlipidemia Diabetes mellitus Anxiety and depression Sleep apnea Family History [...] on file Legal Sex Female 3:43 AM OFFICE SUPPORT SPECIALIST Gender Identity Not on file Sexual Orientation Not on file Last Filed Vital Signs Vital Sign Reading Time Taken Comments Blood Pressure 104/63 10/14/2023 9:22 AM OFFICE SUPPORT SPECIALIST Pulse 60 10/14/2023 9:22 AM OFFICE SUPPORT SPECIALIST Temperature 36.4 C (97.6 F) 10/14/2023 9:22 AM OFFICE SUPPORT SPECIALIST Respiratory Rate 18 10/14/2023 9:22 AM OFFICE SUPPORT SPECIALIST Oxygen Saturation 92% 10/14/2023 9:22 AM OFFICE SUPPORT SPECIALIST Inhaled Oxygen Concentration - - Weight 98.4 kg (217 lb) 10/14/2023 9:22 AM OFFICE SUPPORT SPECIALIST Height 152.4 cm (5') 10/14/2023 9:22 AM OFFICE SUPPORT SPECIALIST Body Mass Index 42.38 10/14/2023 9:22 AM OFFICE SUPPORT SPECIALIST Plan of Treatment Health Maintenance Due Date Last Done Comments Colon Cancer Screening-Colonoscopy 1954 Depression Screening 1954 Fall Risk Assessment 1954 Hepatitis C Screening 1954 Osteoporosis Screening-Bone Density Scan 1954 DTaP/Tdap/Td Vaccine (1 - Tdap) 1965 Hepatitis B Screening 1972 Well Visit 65+ 2019 Pneumococcal vaccine 65+ (2 of 2 - PPSV23, PCV20, or PCV21) 11/13/2019 09/18/2019 Breast Cancer Screening-Mammogram 01/30/2020 019 Covid-19 Vaccine ( - 2024-2 6 season) 2025 10/27/2021, 02/21/2021, 01/29/2021 Influenza Vaccine (#1) 2025 , 09/13/2022, 09/23/2020, Additional history exists Zoster Vaccine Completed 06/26/2022, 04/12/2022 Insurance MEDICARE [employer]PA [facility] MEDICARE ADVANTAGE [employer] [facility] [place] [address] IDPA Care Teams Md Physician Dermatologist Relationship Specialty Start Date End Date Jin Dobson MD [address] [place] [address] PCP - General Family Medicine 01/05/24
--- OUTSIDE RECORDS SUMMARY | 2025-10-16 11:13 | XMS_ITS | Clinical Summary ---
Author Organization [facility] Address [address] [place] [address] Phone Care Team Providers Care Scalp Treatment Specialist Name Role Phone Unavailable Primary Care Provider [...] Comments Blood Pressure 107/59 02/01/2018 2:44 PM FIBER DESIGN ENGINEER Pulse 66 02/01/2018 12:24 PM FIBER DESIGN ENGINEER Temperature 36.5 C (97.7 F) 02/01/2018 12:24 PM FIBER DESIGN ENGINEER Respiratory Rate 18 02/01/2018 2:44 PM FIBER DESIGN ENGINEER Oxygen Saturation 93% 02/01/2018 12:24 PM FIBER DESIGN ENGINEER Inhaled Oxygen Concentration - - Weight 104.3 kg (230 lb) 02/01/2018 12:24 PM FIBER DESIGN ENGINEER Height 157.5 cm (5' 2) 02/01/2018 12:24 PM FIBER DESIGN ENGINEER Body Mass Index 42.07 02/01/2018 12:24 PM FIBER DESIGN ENGINEER Plan of Treatment Health Maintenance Due Date Last Done Comments Hepatitis C Virus (HCV) Screening 1954 TdaP Immunization 1954 Varicella Immunization (1 of 2 - 13+ 2-dose series) 1967 Cologuard 1999 Colonoscopy 1999 Colorectal Cancer Screening 1999 Immunochemical Fecal Occult Blood 1999 Pneumococcal Immunization (5 0+ years) (1 of 1 - PCV) 2004 Zoster Immunization (1 of 2) 2004 Medicare Initial AWV [id number] 12/29/2004 Influenza Immunization (#1) 07/29/202506/2017, 09/12/2016, 09/01/2015 SARS-COV-2 Immunization ( season) 2025 10/27/2021, 02/21/2021, 01/29/2021 Respiratory Syncytial Virus (RSV) [...]
--- OUTSIDE RECORDS SUMMARY | 2025-10-16 11:13 | XMS_ITS | Clinical Summary ---
Author Organization [facility] Address [address] [place] [address] Care Team Providers Care Lpn Private Duty Name Role Phone Unavailable Primary Care Provider [...] 2004 Dexa Scan (General) 2019 COVID-19 Vaccine (2024-2 6 season) 2025 Influenza Adult (#1) 2025 RSV Immunization or 60+ Years (1 - 1-dose 75+ series) 2029 Hepatitis A Vaccines Aged Out No long er eligible based on patient's age to complete this topic Meningococcal B Vaccine Aged Out No l onger eligible based on patient's age to complete this topic Meningococcal Vaccine Aged Out No dora anabell eligible based on patient's age to complete this topic RSV Immunizations Under 20 Months Aged Out No longer eligible based on patient's age to complete this topic
--- OUTSIDE RECORDS SUMMARY | 2025-10-16 11:13 | XMS_ITS | Clinical Summary ---
Author Organization [facility] Address [address] [place] [address] Care Team Providers Care Roller Inspector And Mender Name Role Phone Danelle Olsen MD Primary Care Provider [phone] [facility],non-owned Affiliates and Associated Physician Practices is amultiple site organization consisting of ambulatory clinics and hospital sitesin [place], [place], [place] and [place]. This disclosure is being madepursuant to the Care Everywhere program and may not contain all information available regarding this patient. Last updated 18.[facility] Allergies No known active allergies Social History Tobacco Use Types Packs/Day Years Used Date Smoking Tobacco: Every Day Cigarettes Smokeless Tobacco: Never Tobacco Cessation:Ready to Q uit: Not Asked; Counseling Given: Not Answered Alcohol Use Standard Drinks/Week Comments Yes 0 (1 standard drink = 0.6 oz pur e alcohol) soc Comments Unknown Sex and Gender Information Value Date Recorded Sex Assigned at Not on file Legal Sex Female 6:02 AM CARDIAC/VASCULAR SONOGRAPHER Gender Identity Not on file Sexual Orientation Not on file Last Filed Vital Signs Vital Sign Reading Time Taken Comments Blood Pressure 131/85 08/06/2024 1:23 PM CDT Pulse 55 08/06/2024 1:23 PM CDT Temperature 37 C (98.6 F) 08/06/2024 1:23 PM CDT Respiratory Rate 19 [...] COLON CA SCREENING 1954 LIPID TESTING 1954 HEPATITIS C SCREENING 08/06/1972 DTAP/TDAP/TD VACCINES (1 - Tdap) 1973 PNEUMOCOCCAL VACCINE 50+ (1 of 2 - PCV) 1973 ZOSTER VACCINE (1 of 2) 2004 MAMMOGRAM 01/29/2021 01/29/2019 DEPRESSION SCREENING 11/28/2024 MEDICARE AWV CALENDAR YEAR 2024 COVID-19 VACCINE ( season) 2025 10/27/2023, 10/27/2021, 02/21/2021, Additional history exists INFLUENZA VACCINE (#1) 2025 , 09/13/2022, 09/23/2020, Additional history exists Respiratory Syncytial Virus (RSV) Vaccine Pt: or [...] complete this topic MENINGOCOCCAL (Group B) VACCINE SHARED DECISION-MAKING Aged Out No longer eligible based on patient's age to complete this topic MENINGOCOCCAL GROUPS A/C/Y/W VACCINE Aged Out No longer eligible based on patient's age to complete this topic Insurance MEDICARE [facility] MANAGED MEDICARE ADV Care Teams Roller Inspector And Mender Relationship Specialty Start Date End Date Danelle Olsen MD PCP - General 08/16/19
--- OUTSIDE RECORDS SUMMARY | 2025-10-16 11:13 | XMS_ITS | Clinical Summary ---
Author Organization [facility] Address [address] [place] [address] Care Team Providers Care Triage Specialist Name Role Phone Lewis Hull MD Primary Care Provider [phone] Allergies Active Allergy Reactions Criticality Noted Date [...] DAY 2 08/23/20 18 Active FLUCELVAX QUAD 6550-0692, PF, 60 mcg (15 mcg x 4)/0.5 [...] daily. Active ipratropium bromide (ATROVENT) 0.03 % [place], Non-Aerosol Administer 2 Sprays in each nostril [...] on file Legal Sex Female 4:02 AM KEYPUNCHER Gender Identity Not on file Sexual Orientation [...] Health Maintenance Due Date Last Done Comments DTAP/TDAP/TD VACCINES (1 - Tdap) 1973 COLORECTAL SCREENING 1999 Colorectal Cancer Screening 1999 FIT-DNA Q 3 years 1999 FIT/FOBT Q 1 year 1999 Flex Sig/CT Colonography Q 5 years 1999 PNEUMOCOCCAL VACCINE 50+ YEA RS (1 of 1 - PCV) 2004 RSV VACCINE (60+ or ) (1 - Risk 50-74 years 1-dose series) 2004 ZOSTER VACCINE (1 of 2) 2004 OSTEOPOROSIS SCREENING 2019 BREAST CANCER SCREENING 01/30/2020 [...] MEDICARE PART A AND B Care Teams Triage Specialist Relationship Specialty Start Date End Date Lewis Hull MD PCP - General Emergency Medicine 05/15/19
--- NOTE | 2025-10-16 13:04 | WPDSIXMINUTE ---
Six Minute Walk Procedure Procedure Performed Pulmonary Stress Test (6 min walk) Six Minute Walk Six Minute Walk: This is a 6 minute walk test. The test was performed and interpreted in accordance with the 2014 ERS/ATS task force guidelines. Of note, patient used to wheeled walker. Findings: The patient's resting room air oxygen saturation measured by pulse oximetry was 95%, the heart rate was 61 bpm, and the modified [place] dyspnea score was 1. Patient ambulated for 213 meters and oxygen saturation remained 93%. At the end of the study the heart rate was 94 bpm and the modified [place]ma dyspnea score was 1. The patient did not qualify for supplemental oxygen at rest or with ambulation. In comparison to 6 minute walk on 10/01/2024, the ambulatory distance has increased from 183 m to 213 m. Walter saturation has improved from 89% to 93%.
--- NOTE | 2025-10-16 13:06 | WPDPFTINT ---
PFT Procedure Performed PFT Procedure Performed Spirometry with Pre/Post Bronchodilator Plethysmography (Lung Vol) Diffusing Cap (DLCO) Flow Vol Loop PFT Interpretation This is a pulmonary function test with pre and post-bronchodilator spirometry, plethysmography and diffusing capacity. The test was performed and results interpreted in accordance with the 2019 and 2005 ATS/ERS Task Force guidelines respectively using the Global Lung Function Initiative-2012 reference equations. Patient demonstrated good effort and cooperation. Reproducibility criteria were met. The quality of the pre bronchodilator spirometry maneuver was Grade A and post bronchodilator spirometry maneuver was Grade A. Findings: Spirometry: The contour the inspiratory and expiratory flow tracing are normal. The pre bronchodilator FVC is 2.04 L, 106% predicted. The pre bronchodilator FEV1 is 1.56 L, 103% predicted. The pre bronchodilator FEV1: FVC ratio 77%. The post bronchodilator FVC is 2.00 L, representing a 2% decrease. The post bronchodilator FEV1 is 1.58 L, representing a 1% increase. The post bronchodilator FEV1: FVC ratio 79%. Plethysmography: The total lung capacity is 3.36 L, 92% predicted. The functional residual capacity is 1.67 L, 79% predicted. The residual volume is 1.32 L, 75% predicted. Diffusing capacity: The diffusing capacity unadjusted for hemoglobin and carboxyhemoglobin is 10.9, 61% predicted. The diffusing capacity adjusted for alveolar volume is 4.05, 89% predicted. In comparison to previous pulmonary function testing on 06/01/2023, the post bronchodilator FVC is unchanged from 2.17 L to 2.00 L. The post bronchodilator FEV1 is unchanged from 1.72 L to 1.58 L. The total lung capacity is unchanged from 3.49 L to 3.36 L. The functional residual capacity is unchanged from 1.58 L to 1.67 L. The residual volume is unchanged from 1.34 L to 1.32 L. The diffusing capacity unadjusted for hemoglobin and carboxyhemoglobin is unchanged from 11.9 to 10.9. The diffusing capacity adjusted for alveolar volume is unchanged from 4.22 24.05. Impression: The spirometry is normal without evidence of an obstructive abnormality. There is no significant improvement after inhaling a single dose of albuterol. The lung volumes are normal. The diffusing capacity unadjusted for hemoglobin and carboxyhemoglobin is mildly decreased and normalizes when adjusted for alveolar volume. In comparison to previous pulmonary function test and he on 06/01/2023, there is no significant change in the FVC, FEV1, total lung capacity, functional residual capacity, residual volume or diffusing capacity. Clinical correlation is recommended.
== END 2025-10-16 08:56 | disposition home or self-care (01) ==
LOC: ANHPFT 08:55
PROVIDERS: PCP Emergency Medicine; Visit Provider Nurse Practitioner Family
DX: J44.9 Chronic obstructive pulmonary disease, unspecified (principal); J84.9 Interstitial pulmonary disease, unspecified; Z72.0 Tobacco use
CPT/HCPCS: 94060; 94618; 94726; 94729